=== PATIENT | female | born 1945 | race Caucasian/White ===

== ENCOUNTER 2016-11-12 10:18 | Emergency (ER) | payer OTHER ==
[~2016-11-12] VITALS: Ht 160 cm; Wt 70.0 kg
[~2016-11-12 10:18] MED LIST: ASPEC81 PO; ATOR-24 PO; CALCIUM + D600 M1 PO; CALCTAB91 PO; CLB/200 PO; DIPH1TAB98 PO; DOCU-94 PO; FERR325T51 PO; HYDR-4079 PO; LEVO88TA3 PO; LORA-741 PO; MULT-506 PO; NITR1CAP32 PO; PANT40TA PO; SENN-61 PO; SERT-234 PO; TRAM-10 PO
[2016-11-12 10:23] VITALS: TEMP 36.7; Ht 160 cm; Wt 70.0 kg
--- NOTE | 2016-11-12 11:15 | EMERGENCY ROOM VISIT NOTE ---
History Report prepared by Cris: Arleen Mckinnon Under the Supervision of: Dr. Anel Ferrera M.D. First contact with patient: 10:37 Chief Complaint: SWELLING TO EXTREMITY Stated Complaint: SWELLING IN R LEG History of Present Illness The patient is a 71 year old female who presents to the Emergency Room with complaints of persistent right leg swelling starting this morning. She noticed today that her right leg was larger than her left. She denies any hip pain or SOB. She has a history of right hip surgery after she fractured it. Source of History: patient Onset: this morning Position: leg (right) Quality: other (swelling) Timing: other (persistent) Associated Symptoms: No SOB Note: Pt denies hip pain. Review of Systems See HPI for pertinent positives & negatives. A total of 10 systems reviewed and were otherwise negative. Past Medical & Surgical Medical Problems: (1) Anxiety (2) Depression (3) DJD (degenerative joint disease) (4) Hyperlipidemia (5) Hypothyroidism (6) Venous (peripheral) insufficiency Surgical Problems: (1) History of dental surgery (2) Post-operative state (3) Post-operative state Family History Diabetes mellitus BROTHER Social History Smoking Status: Never Smoker Alcohol Use: none Drug Use: none Marital Status: Housing Status: lives alone Occupation Status: unemployed Current/Historical Medications Scheduled , 600 MG PO BID Aspirin (Aspirin EC Low Dose), 81 MG PO BID Atorvastatin (Lipitor), 40 MG PO HS Ferrous Sulfate (Ferrous Sulfate), 325 MG PO DAILY Levothyroxine Sodium (Synthroid), 75 MCG PO DAILY Multivitamin (Multivitamin), 1 TAB PO QAM Oxybutynin Chloride (Ditropan), 5 MG PO BID Sertraline (Zoloft), 100 MG PO QPM Allergies Coded Allergies: No Known Allergies (Unverified , 11/12/16) Physical Exam Vital Signs Date Time Temp Pulse Resp B/P (MAP) Pulse Ox O2 Delivery O2 Flow Rate FiO2 11/12/16 13:23 11/12/16 13:02 44 11/12/16 12:55 51 16 168/69 97 Room Air 11/12/16 11:28 67 18 152/84 95 Room Air 11/12/16 10:23 36.7 55 18 146/73 98 Room Air Physical Exam Vital signs reviewed. General: Well-appearing female, in no significant distress. HEENT: No scleral icterus, PERRLA, neck supple. Atraumatic. Cardiovascular: Regular rate and rhythm, no extra sounds. Pulmonary: Clear to auscultation bilaterally, normal work of breathing. Abdomen: Soft, nontender, nondistended, positive bowel sounds. Musculoskeletal: Atraumatic. Right thigh is questionably edematous, neurovascularly intact, no distal lower extremity edema. Neurologic: Patient awake alert and oriented x 3 Skin: Warm, dry, no rash Medical Decision & Procedures ER Provider Diagnostic Interpretation: Radiology results as stated below per my review and radiologist interpretation: RIGHT VENOUS DOPP LOWER EXT UNILAT CLINICAL HISTORY: RLE swelling Right pain. Edema. TECHNIQUE: Ultrasound COMPARISON STUDY: None FINDINGS: Normal venous Doppler right leg IMPRESSION: Normal venous Doppler right leg The above report was generated using voice recognition software. It may contain grammatical, syntax or spelling errors. Electronically signed by: Jerome Collazo M.D. 11/12/2016 12:19 PM Dictated Date/Time: 11/12/2016 12:19 PM Laboratory Results 11/12/16 11:01 Red Blood Count 3.83, Mean Corpuscular Volume 91.1, Mean Corpuscular Hemoglobin 29.5, Mean Corpuscular Hemoglobin Concent 32.4, Mean Platelet Volume 8.2, Neutrophils (%) (Auto) 64.7, Lymphocytes (%) (Auto) 24.4, Monocytes (%) (Auto) 9.5, Eosinophils (%) (Auto) 1.0, Basophils (%) (Auto) 0.2, Neutrophils # (Auto) 3.34, Lymphocytes # (Auto) 1.26, Monocytes # (Auto) 0.49, Eosinophils # (Auto) 0.05, Basophils # (Auto) 0.01 11/12/16 11:01 Test 11/12/16 11:01 White Blood Count 5.16 K/uL (4.8-10.8) Red Blood Count 3.83 M/uL (4.2-5.4) Hemoglobin 11.3 g/dL (12.0-16.0) Hematocrit 34.9 % (37-47) Mean Corpuscular Volume 91.1 fL (80-100) Mean Corpuscular Hemoglobin 29.5 pg (25-34) Mean Corpuscular Hemoglobin Concent 32.4 g/dl (32-36) Platelet Count 260 K/uL (130-400) Mean Platelet Volume 8.2 fL (7.4-10.4) Neutrophils (%) (Auto) 64.7 % Lymphocytes (%) (Auto) 24.4 % Monocytes (%) (Auto) 9.5 % Eosinophils (%) (Auto) 1.0 % Basophils (%) (Auto) 0.2 % Neutrophils # (Auto) 3.34 K/uL (1.4-6.5) Lymphocytes # (Auto) 1.26 K/uL (1.2-3.4) Monocytes # (Auto) 0.49 K/uL (0.11-0.59) Eosinophils # (Auto) 0.05 K/uL (0-0.5) Basophils # (Auto) 0.01 K/uL (0-0.2) RDW Standard Deviation 47.9 fL (36.4-46.3) RDW Coefficient of Variation 14.3 % (11.5-14.5) Immature Granulocyte % (Auto) 0.2 % Immature Granulocyte # (Auto) 0.01 K/uL (0.00-0.02) Prothrombin Time 10.3 SECONDS (9.0-12.0) Prothromb Time International Ratio 1.0 (0.9-1.1) Activated Partial Thromboplast Time 26.1 SECONDS (21.0-31.0) Partial Thromboplastin Ratio 1.0 Anion Gap 5.0 mmol/L (3-11) Est Creatinine Clear Calc Drug Dose 91.3 ml/min Estimated GFR () 110.7 Estimated GFR (Non- 95.5 BUN/Creatinine Ratio 17.9 (10-20) Calcium Level 8.5 mg/dl (8.5-10.1) Total Bilirubin 0.4 mg/dl (0.2-1) Direct Bilirubin 0.1 mg/dl (0-0.2) Aspartate Amino Transf (AST/SGOT) 24 U/L (15-37) Alanine Aminotransferase (ALT/SGPT) 34 U/L (12-78) Alkaline Phosphatase 83 U/L (45-117) Total Protein 6.6 gm/dl (6.4-8.2) Albumin 3.7 gm/dl (3.4-5.0) Laboratory results per my review. ED Course 1040: Past medical records reviewed. The patient was evaluated in room B3B. A complete history and physical examination was performed. 1136: I reevaluated the patient. She will get an ultrasound. 1323: Upon reevaluation, the patient was resting comfortably. I discussed findings with her. She verbalized agreement of the treatment plan. She was discharged home. Medical Decision Differential diagnosis: Etiologies such as DVT, musculoskeletal, infection, joint effusion, trauma, lymphedema, idiopathic, CHF, as well as others were entertained. This patient was evaluated and appeared to be in no significant distress. IV access was obtained and laboratory work was drawn. Ultrasound of right lower sternal he was performed and is negative for DVT. Patient was becoming somewhat agitated and wanted to leave. She states she is able to ambulate on the leg without difficulty. On further reflection, the patient feels as though her right leg is "always bigger than her left leg." This is chronic and likely secondary to her previous surgery. The x-ray was canceled and the patient was advised to follow-up with her primary care physician. She will return to the emergency department for worsening of symptoms or any medical concerns. Medication Reconcilliation Current Medication List: was personally reviewed by me Blood Pressure Screening Patient's blood pressure: Elevated blood pressure Blood pressure disposition: Referred to PCP Impression Primary Impression: Swelling of right lower extremity Scribe Attestation The scribe's documentation has been prepared under my direction and personally reviewed by me in its entirety. I confirm that the note above accurately reflects all work, treatment, procedures, and medical decision making performed by me. Departure Information Dispostion Home / Self-Care Referrals Geovanny Prieto D.O. (PCP) Forms HOME CARE DOCUMENTATION FORM, IMPORTANT VISIT INFORMATION, WORK / SCHOOL INSTRUCTIONS Patient Instructions My [facility] Additional Instructions Diagnosis: Right lower extremity swelling Elevate the right leg when possible. Follow-up with your physician this week for reevaluation. Return to the ER for worsening of symptoms or any medical concerns.
[2016-11-12 11:16] LABS: BASO % 0.2 %; BASO ABS # 0.01 K/uL (0-0.2); COMPLETE YES; HEMATOCRIT 34.9 % (37-47); IG% 0.2 %; LYMPH % 24.4 %; LYMPH ABS # 1.26 K/uL (1.2-3.4); MEAN CELL VOLUME 91.1 fL (80-100); MEAN CORPUSCULAR HEMOGLOBIN 29.5 pg (25-34); MEAN CORPUSCULAR HGB CONC 32.4 g/dl (32-36); MEAN PLATELET VOLUME 8.2 fL (7.4-10.4); MONO % 9.5 %; NEUT % 64.7 %; PLATELET COUNT 260 K/uL (130-400); RED BLOOD COUNT 3.83 M/uL (4.2-5.4); WHITE BLOOD COUNT 5.16 K/uL (4.8-10.8)
[2016-11-12 11:30] LABS: PROTHROMBIN TIME (PATIENT) 10.3 SECONDS (9.0-12.0)
[2016-11-12 11:34] LABS: BUN/CREATININE RATIO 17.9 (10-20); CALCIUM 8.5 mg/dl (8.5-10.1); CREATININE 0.53 mg/dl (0.60-1.20); POTASSIUM 3.9 mmol/L (3.5-5.1)
[2016-11-12] MEDS ORDERED: FERR325T5 PO (11:37)
[2016-11-12] MEDS ORDERED: OXYB5TAB74 PO (11:37)
[2016-11-12] MEDS ORDERED: LEVO75TA PO (11:37)
--- NOTE | 2016-11-12 12:20 | DIAGNOSTIC IMAGING REPORT ---
RIGHT VENOUS DOPP LOWER EXT UNILAT CLINICAL HISTORY: RLE swelling Right pain. Edema. TECHNIQUE: Ultrasound COMPARISON STUDY: None FINDINGS: Normal venous Doppler right leg IMPRESSION: Normal venous Doppler right leg The above report was generated using voice recognition software. It may contain grammatical, syntax or spelling errors. Electronically signed by: Jerome Collazo M.D. 11/12/2016 12:19 PM Dictated Date/Time: 11/12/2016 12:19 PM
[2016-11-12 12:55] VITALS: BP 168/69; O2SAT 97
[2016-11-12 13:02] VITALS: PULSE 44
== END 2016-11-12 13:23 | disposition home or self-care (01) ==
LOC: C.EDB 10:18
DX: M79.89 Other specified soft tissue disorders (principal); E78.5 Hyperlipidemia, unspecified; E03.9 Hypothyroidism, unspecified; M19.90 Unspecified osteoarthritis, unspecified site; I73.9 Peripheral vascular disease, unspecified; F32.9 Major depressive disorder, single episode, unspecified; F41.9 Anxiety disorder, unspecified; Z79.82 Long term (current) use of aspirin; Z79.899 Other long term (current) drug therapy; Z87.828 Personal history of other (healed) physical injury and trauma; Z83.3 Family history of diabetes mellitus

== ENCOUNTER 2017-05-12 06:23 | Emergency (ER) | payer OTHER ==
[~2017-05-12] VITALS: Ht 157.5 cm; Wt 70.5 kg
[~2017-05-12 06:23] MED LIST changes: -CALCTAB91 PO; -CLB/200 PO; -DIPH1TAB98 PO; -DOCU-94 PO; +DTR/5 PO; +FERR325T5 PO; -FERR325T51 PO; -HYDR-4079 PO; +LEVO75TA PO; -LEVO88TA3 PO; -LORA-741 PO; -NITR1CAP32 PO; -PANT40TA PO; -SENN-61 PO; -TRAM-10 PO
[2017-05-12 06:26] VITALS: TEMP 36.7; Ht 157.5 cm; Wt 70.5 kg
[2017-05-12] MEDS ORDERED: MAGNESIUM CITRATE 296 ML/BTL PO STA (06:45)
[2017-05-12 06:57] VITALS: BP 117/68; PULSE 62; O2SAT 98
--- NOTE | 2017-05-12 07:04 | EMERGENCY ROOM VISIT NOTE ---
History Report prepared by Cris: Roberth Mendez Under the Supervision of: Dr. Deangelo Seals M.D. First contact with patient: 06:30 Chief Complaint: CONSTIPATION Stated Complaint: CONSTIPATED Nursing Triage Summary: Patient reports constipation for one week. Patient believes it is related to one of her medications, but is unsure which. History of Present Illness The patient is a 72 year old female who presents to the Emergency Room with complaints of constant constipation that began a week ago. Patient denies any associated symptoms of pain. Patient states that she has a history of constipation. Patient states that she has not moved her bowels for "almost 2 weeks". Patient states that she tried taking Laxatives to relieve the symptoms. She adds that she is currently taking Docusate and Oxybutynin. Source of History: patient Onset: 1 week ago Position: abdomen Timing: constant Modifying Factors (Relieving): other (None) Associated Symptoms: No abdominal pain Note: Patient denies any pain. Review of Systems See HPI for pertinent positives & negatives. A total of 10 systems reviewed and were otherwise negative. Past Medical & Surgical Medical Problems: (1) Anxiety (2) Depression (3) DJD (degenerative joint disease) (4) Hyperlipidemia (5) Hypothyroidism (6) Venous (peripheral) insufficiency Surgical Problems: (1) History of dental surgery (2) Post-operative state (3) Post-operative state Family History Diabetes mellitus BROTHER Social History Smoking Status: Never Smoker Alcohol Use: none Drug Use: none Marital Status: Housing Status: lives alone Occupation Status: unemployed Current/Historical Medications Scheduled , 600 MG PO BID Aspirin (Aspirin EC Low Dose), 81 MG PO BID Atorvastatin (Lipitor), 40 MG PO HS Ferrous Sulfate (Ferrous Sulfate), 325 MG PO DAILY Levothyroxine Sodium (Synthroid), 75 MCG PO DAILY Multivitamin (Multivitamin), 1 TAB PO QAM Oxybutynin Chloride (Ditropan), 5 MG PO BID Sertraline (Zoloft), 100 MG PO QPM Allergies Coded Allergies: No Known Allergies (Unverified , 11/12/16) Physical Exam Vital Signs Date Time Temp Pulse Resp B/P (MAP) Pulse Ox O2 Delivery O2 Flow Rate FiO2 05/12/17 06:57 62 16 117/68 98 05/12/17 06:26 36.7 61 18 173/84 94 Room Air Physical Exam GENERAL: Awake, alert, well-appearing, in no acute distress HENT: Normocephalic, atraumatic. Oropharynx unremarkable. EYES: Normal conjunctiva. Sclera non-icteric. NECK: Supple. No nuchal rigidity. FROM. No JVD. RESPIRATORY: Clear to auscultation. CARDIAC: Regular rate, normal rhythm. Extremities warm and well perfused. Pulses equal. ABDOMEN: Soft, non-distended. No tenderness to palpation. No rebound or guarding. No masses. RECTAL: Deferred. MUSCULOSKELETAL: Chest examination reveals no tenderness. The back is symmetrical on inspection without obvious abnormality. There is no CVA tenderness to palpation. No joint edema. LOWER EXTREMITIES: Calves are equal size bilaterally and non-tender. No edema. No discoloration. NEURO: Normal sensorium. No sensory or motor deficits noted. SKIN: No rash or jaundice noted. Medical Decision & Procedures ED Course 0640: Past medical records reviewed. The patient was evaluated in room B3B. A complete history and physical examination was performed. 0645: Magnesium Citrate 296ml PO 0650: Upon reexamination the patient is resting comfortably. I offered to perform lab work and imaging on the patient but she declined. I discussed treatment plan with the patient. She verbalizes agreement and understanding. The patient is ready for discharge. Medical Decision Differential diagnosis: Etiologies such as appendicitis, diverticulitis, PUD, biliary pathology, UTI, pancreatitis, obstruction, mesenteric ischemia, aortic pathology, infections, inflammatory bowel disease, renal colic, as well as others were entertained. This is a 72-year-old female who presents emergency department complaining of constipation. I offered to do laboratory work and recommended a CAT scan of the abdomen and pelvis however the patient does not wish to do this. Serial abdominal examinations were performed and the patient in the emergency department and at no time to the patient exhibited abdominal tenderness. The patient is just requesting a bottle of magnesium Citrate and wishes to go home and use it. I stressed the need to return to the emergency department if she is unable to move her bowels or she develops severe abdominal pain or fevers. Patient was in agreement with the treatment plan. Medication Reconcilliation Current Medication List: was personally reviewed by me Blood Pressure Screening Patient's blood pressure: Elevated blood pressure Blood pressure disposition: Referred to PCP Impression Primary Impression: Constipation Scribe Attestation The scribe's documentation has been prepared under my direction and personally reviewed by me in its entirety. I confirm that the note above accurately reflects all work, treatment, procedures, and medical decision making performed by me. Departure Information Dispostion Home / Self-Care Referrals No Doctor, Assigned (PCP) Forms HOME CARE DOCUMENTATION FORM, IMPORTANT VISIT INFORMATION Patient Instructions ED Constipation, My [facility] Additional Instructions Take 1/2 bottle of Mag Citrate Repeat second half in six hours Add Miralax to diet Clear liquid diet next 48 hours You were found to have an elevated blood pressure today (>120 sytolic or >90 diastolic). Per medicare guidelines, you need to follow up with this blood pressure screening with your Primary Care Physician (PCP). For a new PCP call [phone]. You have been examined and treated today on an emergency basis only. This is not a substitute for, or an effort to provide, complete comprehensive medical care. It is impossible to recognize and treat all injuries or illnesses in a single emergency department visit. It is therefore important that you follow up closely with your PCP. Call as soon as possible for an appointment. Thank you for your time and consideration. I look forward to speaking with you again soon. Please don't hesitate to call us if you have any questions. Problem Qualifiers Primary Impression: Constipation Constipation type: unspecified constipation type Qualified Codes: K59.00 - Constipation, unspecified
== END 2017-05-12 06:58 | disposition home or self-care (01) ==
LOC: C.EDB 06:25
DX: K59.00 Constipation, unspecified (principal); E78.5 Hyperlipidemia, unspecified; E03.9 Hypothyroidism, unspecified; F32.9 Major depressive disorder, single episode, unspecified; M19.90 Unspecified osteoarthritis, unspecified site; Z98.818 Other dental procedure status; Z98.890 Other specified postprocedural states; Z83.3 Family history of diabetes mellitus; Z79.82 Long term (current) use of aspirin; Z79.899 Other long term (current) drug therapy

== ENCOUNTER 2022-01-16 12:46 | Inpatient (IN) ==
[2022-01-16] MEDS ORDERED: LORazepam 1 MG/1 ML SYR IM STA (14:04)
[2022-01-16] MEDS ORDERED: HALOPERIDOL LACTATE 5 MG/ML 1 ML VIAL IM STA (14:04)
--- NOTE | 2022-01-16 14:21 | Emergency Department Note ---
Impression & Plan Altered mental status, Dementia ED Provider Note NAME: DESIREE SHORE AGE: 76 SEX: F : 1945 ARRIVES VIA: Walk-In INFORMANT: Patient, ED PROVIDER(S): Poli Shelley DO CHIEF COMPLAINT: Encounter for behavioral health evaluation HPI: The patient is a 76-year-old female who was dropped off by family for an evaluation and possible placement. The patient self offers no complaints. She denies having any chest pain. She denies having any nausea or vomiting. She denies having any recent trauma or headache. She is very agitated and complaining that she does not want to be in the emergency department. She states that she is not here as a patient but instead is here because she is visiting her friend. The patient denies having any recent fevers. She denies having a headache. Apparently the patient was dropped off by family at the front as they cannot take care of her anymore. She was admitted to our facility recently for similar complaints. ROS: See above HPI for pertinent positives & negatives. A total of 10 systems reviewed and were otherwise negative. PAST MEDICAL HISTORY: See Below PAST SURGICAL HISTORY: See Below FAMILY HISTORY: See Below SOCIAL HISTORY: See Below HOME MEDICATIONS: See Below ALLERGIES: See Below VITALS: See Below PHYSICAL EXAMINATION: GENERAL: The patient is awake and alert. The patient is somewhat anxious appearing. EYES: The conjunctivae are clear. The pupils are round and reactive. EARS, NOSE, MOUTH AND THROAT: The nose is without any evidence of any deformity. NECK: The neck is nontender and supple. RESPIRATORY: Normal respiratory effort is noted there is no evidence of wheezing rhonchi or rales CARDIOVASCULAR: Regular rate and rhythm noted there no murmurs rubs or gallops normal S1 normal S2. GASTROINTESTINAL: The abdomen is soft. Abdomen is nontender. MUSCULOSKELETAL/EXTREMITIES: There is no evidence of gross deformity full range of motion is noted in the hips and shoulders. SKIN: Skin is warm and dry. There is no significant pedal edema. NEUROLOGIC: Patient is awake alert and oriented to person place but not time. Patient is walking around the room using her cane. MEDICAL DECISION MAKING: The patient is a 76-year-old female who presented to the emergency department for an evaluation. The patient was recently admitted to our facility and has some degree of dementia diagnosed at that time. The family felt that they would like to try to manage her condition at home. She was discharged in their care. The family brought her back to the emergency department today because they do not feel that they can properly manage her. I discussed the patient's laboratory and radiographic studies with her. I discussed her condition with the on-call [facility]ist group. They have agreed to evaluate the patient in the emergency department for further management and disposition. The patient was treated with medication to help her calm down she was very agitated in the emergency department. Triage Nursing notes reviewed. Prior medical records reviewed Vital Signs: reviewed and remarkable for elevated blood pressure. Differential diagnosis: Infection, hypoglycemia, electrolyte abnormalities, overdose, toxicologic, cardiac sources, intracerebral event, neurologic, trauma, as well as other pathologies. ER treatment provided: See below Diagnostics interpreted by me: ECG: EKG was obtained in the emergency department. My interpretation is normal sinus rhythm at 69 bpm. There is no ectopy. There is no acute ST segment abnormalities noted. LVH was noted by voltage criteria. This was compared to a tracing from December 29, 2021. No changes were noted. Cardiac Monitoring: An order was placed for continuous cardiac monitoring. The monitor shows a rate of 98 bpm with sinus rhythm. Laboratory studies: As stated above and show below. Imaging studies: See below Consultation(s): I discussed this case with Mallory who is on-call for the [facility] hospitalist group. Past Med/Surg History Medical History Acid reflux Anterior dislocation of right hip Anxiety Chronic confusion Constipation Dementia Dementia with behavioral disturbance Depression Depression with anxiety History of skin cancer removed Hyperlipemia Hypothyroidism Iron deficiency anemia Osteoarthritis Overactive bladder Poor historian Poor short term memory Scoliosis Vitamin D deficiency Surgical History History of dilation and curettage History of open reduction and internal fixation (ORIF) procedure Left hip History of tooth extraction Family History Brother Diabetes Father Hypertension Other No family history of adverse response to anesthesia Social History Smoking Status: Never smoker Second Hand Exposure: No; Hx Alcohol Use: No Hx Substance Use: No Preferred Language: New Zealander 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 Ability: 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 Beliefs That Will Affect Care: None marital status: / Current Living Situation: Other Current Living Situation Comment: Home with son in mobile home How many Children do You have: 2 Feels Safe at Home: Yes Assistive Devices: Cane Allergies Allergies Allergy/AdvReac Type Severity Reaction Status Date / Time No Known Allergies Allergy Verified 12/07/21 19:54 Home Meds Home Medications Medication Instructions Recorded Confirmed aspirin 81 mg tablet,delayed 81 mg PO QAM 07/23/18 01/16/22 release levothyroxine 88 mcg tablet 88 mcg PO DAILY 12/20/21 01/16/22 donepezil 5 mg tablet 5 mg PO DAILY 01/16/22 01/16/22 Previous Rx's Medication Instructions Recorded olanzapine 2.5 mg tablet 2.5 mg PO DAILY PRN agitation #20 01/03/22 tabs quetiapine 25 mg tablet (Seroquel) See Rx Instructions .Route 01/03/22 .COMPLEX #90 tabs Results & Data (ED) Vital Signs Vital Signs - 24 hr 01/16/22 13:04 01/16/22 14:41 Temperature 36.8 C Temperature Source Oral Pulse Rate 86 Pulse Rate [Right Finger] 98 H Respiratory Rate 20 20 Respiratory Effort / Characteristics Non-Labored Non-Labored Spontaneous Respiratory Depth Normal Normal Respiratory Pattern Regular Blood Pressure 121/87 Blood Pressure [Right Arm] 172/140 H Blood Pressure Mean 98 Blood Pressure Mean [Right Arm] 150 Blood Pressure Position [Right Arm] Lying Pulse Oximetry 98 94 Oxygen Delivery Method Room Air Room Air Sepsis Recent Fever Within 48 Hours No Sepsis New/Unexplained Change in Mental Status N/A Sepsis Action Taken by Nursing No Action Required Home Medications Current Medication List: was personally reviewed by me Laboratory Data Attestation: I reviewed the patient's lab results. Result diagrams: 01/16/22 17:45 01/16/22 17:45 Lab Results 01/16/22 01/16/22 01/16/22 Range/Units 17:45 17:45 17:45 WBC 7.38 (4.8-10.8) K/ul RBC 3.72 L (3.93-5.22) M/uL Hgb 10.9 L (12.0-16.0) g/dl Hct 33.6 L (34.1-44.9) % MCV 90.3 (80.0-100.0) fL MCH 29.3 (25.0-34.0) pg MCHC 32.4 (32.0-36.0) g/dL RDW Std Deviation 50.3 H (36.4-46.3) fL RDW Coeff of Deidre 14.9 H (11.5-14.5) % Plt Count 400 (130-400) K/uL MPV 9.0 L (9.4-12.3) fL Immature Gran % (Auto) 0.3 % Neut % (Auto) 63.4 % Lymph % (Auto) 25.6 % Trego % (Auto) 8.7 % Eos % (Auto) 1.5 % Baso % (Auto) 0.5 % Neut # (Auto) 4.68 (1.4-6.5) K/uL Lymph # (Auto) 1.89 (1.2-3.4) K/uL Trego # (Auto) 0.64 (0.24-0.82) K/uL Eos # (Auto) 0.11 (0-0.50) K/uL Baso # (Auto) 0.04 (0-0.2) K/uL Immature Gran # (Auto) 0.02 (0.00-0.02) K/uL PT 10.5 (9.0-12.0) Seconds INR 1.0 (0.9-1.1) APTT 25.7 (21.0-31.0) Seconds PTT Ratio 0.9 Sodium 142 (136-145) mmol/L Potassium 3.4 L (3.5-5.1) mmol/L Chloride 110 H (98-107) mmol/L Carbon Dioxide 26 (21-32) mmol/L Anion Gap 6 (3-11) BUN 14 (6-23) mg/dl Creatinine 0.66 (0.6-1.2) mg/dl Est Cr Clr Drug Dosing Not Reportable Est GFR ( Amer) 99.5 ml/min Est GFR (Non-Af Amer) 85.8 ml/min BUN/Creatinine Ratio 21.2 H (10-20) Glucose 98 (70-99(Fasting)) mg/dl Calcium 8.1 L (8.5-10.1) mg/dl Magnesium 2.4 (1.7-2.4) mg/dl Total Bilirubin 0.4 (0.2-1.0) mg/dl AST 20 (13-39) U/L ALT 18 (7-52) U/L Alkaline Phosphatase 100 (34-104) U/L Total Creatine Kinase 61 (26-192) U/L Troponin I High Sens 7.2 (0-14) pg/ml Total Protein 6.5 (6.0-8.3) gm/dl Albumin 3.7 (3.4-5.0) gm/dl Globulin 2.8 (2.5-4.0) gm/dl Albumin/Globulin Ratio 1.3 (0.9-2) TSH (0.300-4.500) uIu/ml SARS-CoV-2, RNA, NAAT (NEGATIVE) 01/16/22 01/16/22 Range/Units 17:45 Unknown WBC (4.8-10.8) K/ul RBC (3.93-5.22) M/uL Hgb (12.0-16.0) g/dl Hct (34.1-44.9) % MCV (80.0-100.0) fL MCH (25.0-34.0) pg MCHC (32.0-36.0) g/dL RDW Std Deviation (36.4-46.3) fL RDW Coeff of Deidre (11.5-14.5) % Plt Count (130-400) K/uL MPV (9.4-12.3) fL Immature Gran % (Auto) % Neut % (Auto) % Lymph % (Auto) % Trego % (Auto) % Eos % (Auto) % Baso % (Auto) % Neut # (Auto) (1.4-6.5) K/uL Lymph # (Auto) (1.2-3.4) K/uL Trego # (Auto) (0.24-0.82) K/uL Eos # (Auto) (0-0.50) K/uL Baso # (Auto) (0-0.2) K/uL Immature Gran # (Auto) (0.00-0.02) K/uL PT (9.0-12.0) Seconds INR (0.9-1.1) APTT (21.0-31.0) Seconds PTT Ratio Sodium (136-145) mmol/L Potassium (3.5-5.1) mmol/L Chloride (98-107) mmol/L Carbon Dioxide (21-32) mmol/L Anion Gap (3-11) BUN (6-23) mg/dl Creatinine (0.6-1.2) mg/dl Est Cr Clr Drug Dosing Est GFR ( Amer) ml/min Est GFR (Non-Af Amer) ml/min BUN/Creatinine Ratio (10-20) Glucose (70-99(Fasting)) mg/dl Calcium (8.5-10.1) mg/dl Magnesium (1.7-2.4) mg/dl Total Bilirubin (0.2-1.0) mg/dl AST (13-39) U/L ALT (7-52) U/L Alkaline Phosphatase (34-104) U/L Total Creatine Kinase (26-192) U/L Troponin I High Sens (0-14) pg/ml Total Protein (6.0-8.3) gm/dl Albumin (3.4-5.0) gm/dl Globulin (2.5-4.0) gm/dl Albumin/Globulin Ratio (0.9-2) TSH 1.652 (0.300-4.500) uIu/ml SARS-CoV-2, RNA, NAAT NEGATIVE (NEGATIVE) Administered Medications Discontinued Medications Haloperidol Lactate (Haloperidol Lactate 5 Mg/Ml 1 Ml Vial) 5 mg IM NOW STA Stop: 01/16/22 14:05 Last Admin: 01/16/22 14:23 Dose: 5 mg Documented By: TONY Lorazepam (Lorazepam 1 Mg/1 Ml Syr) 1 mg IM NOW STA; Protocol Stop: 01/16/22 14:05 Last Admin: 01/16/22 14:23 Dose: 1 mg Documented By: TONY Imaging Data Radiologist's Impression: Chest X-Ray 01/16/22 14:04 XR chest 1V portable CLINICAL HISTORY: weakness TECHNIQUE: Single frontal radiograph of the chest was obtained. Comparison: Comparison is made to chest radiograph 12/25/2021 FINDINGS: No lines and tubes are seen. Calcified aortic knob is seen. The lungs are clear. No evidence of pleural effusion or pneumothorax. IMPRESSION: No acute chest disease. ACT 112: Negative or not required by law. Electronically signed by: Enrique Herrera M.D. 01/16/2022 3:51 PM Discharge Plan Visit Data Chief Complaint: Altered Mental Status Stated Complaint: ALTERED MENTAL STATUS, PLACEMENT FOR [facility] ED Provider: Poli Shelley Discharge Problem: Altered mental status, Dementia Patient Disposition: Being Evaluated by Hospitalist Forms Stand Alone Forms: My [facility] Prescriptions Prescriptions: No Action aspirin 81 mg tablet,delayed release (DR/EC) 81 mg PO QAM levothyroxine 88 mcg tablet 88 mcg PO DAILY quetiapine [Seroquel] 25 mg tablet See Rx Instructions .ROUTE .COMPLEX Qty: 90 0RF Rx Instructions: 25 mg orally in morning 50mg orally at night olanzapine 2.5 mg tablet 2.5 mg PO DAILY PRN (Reason: agitation) Qty: 20 0RF donepezil 5 mg Tablet 5 mg PO DAILY Referrals Referrals: Gaurav Savage MD [Primary Care Provider] -
--- NOTE | 2022-01-16 15:52 | XRay Report ---
XR chest 1V portable CLINICAL HISTORY: weakness TECHNIQUE: Single frontal radiograph of the chest was obtained. Comparison: Comparison is made to chest radiograph 12/25/2021 FINDINGS: No lines and tubes are seen. Calcified aortic knob is seen. The lungs are clear. No evidence of pleur al effusion or pneumothorax. IMPRESSION: No acute chest disease. ACT 112: Negative or not required by law. Electronically signed by: Enrique Herrera M.D. 01/16/2022 3:51 PM
--- NOTE | 2022-01-16 15:53 | History & Physical Report ---
Date of Service January 16, 2022 Assessment & Plan (1) Dementia with behavioral disturbance: Plan: Admit to [facility] [place] [place] Patient presenting with increased agitation. Recently admitted to [facility] 12/20 through 01/03 for similar. Patient discharged on Seroquel and as needed olanzapine. Patient was excepted to [facility] during previous admission however son elected to take the patient home to be her primary caregiver. Son dropped the patient off at the ED today and did not come in to the hospital. Continue previously prescribed dose of Seroquel. PRN IM olanzapine for severe agitation. Psych consult. Obtain labs and EKG once patient is less agitated. Patient will need manager intermediate placement, discussed with ED case management -- Office of Aging and Adult Protective Services have been notified of the situation. (2) Hypothyroidism: Plan: According to patient's pharmacy, she is prescribed levothyroxine 88 mcg daily however this has not been picked up since November for a 30-day supply Check TSH, order levothyroxine accordingly (3) DVT prophylaxis: Plan: SCDs for now due to increased fall risk and agitation History of Present Illness Chief Complaint: Agitation Primary Care Provider: Gaurav Savage MD 76-year-old female with PMH dementia, hypothyroidism, hyperlipidemia, and other problems to below who presents to the ED for agitation. Patient's son dropped her off at the ED and did not stay with her. History is very limited from the patient currently due to severe agitation. Patient recently admitted to [facility] 12/20 through 01/03 for agitation due to dementia. Patient was discharged on Seroquel and as needed olanzapine. I did confirm with patient's pharmacy that these 2 prescriptions were picked up however cannot confirm with patient has been taking medications as prescribed. I also attempted to call patient's son however there was a busy signal. Due to patient's agitation, labs and imaging have not been completed. During exam, patient is ambulating in the room independently however severely agitated and yelling. Patient received IM Haldol and IM lorazepam in the ED. Allergies Allergy/AdvReac Type Severity Reaction Status Date / Time No Known Allergies Allergy Verified 12/07/21 19:54 Home Medications Medication Instructions Recorded Confirmed Type aspirin 81 mg tablet,delayed 81 mg PO QAM 07/23/18 01/16/22 History release levothyroxine 88 mcg tablet 88 mcg PO DAILY 12/20/21 01/16/22 History olanzapine 2.5 mg tablet 2.5 mg PO DAILY PRN agitation #20 01/03/22 01/16/22 Rx tabs quetiapine 25 mg tablet (Seroquel) See Rx Instructions .Route 01/03/22 01/16/22 Rx .COMPLEX #90 tabs donepezil 5 mg tablet 5 mg PO DAILY 01/16/22 01/16/22 History Past Med/Surg History Medical History Acid reflux Anterior dislocation of right hip Anxiety Chronic confusion Constipation Dementia Dementia with behavioral disturbance Depression Depression with anxiety History of skin cancer removed Hyperlipemia Hypothyroidism Iron deficiency anemia Osteoarthritis Overactive bladder Poor historian Poor short term memory Scoliosis Vitamin D deficiency Surgical History History of dilation and curettage History of open reduction and internal fixation (ORIF) procedure Left hip History of tooth extraction Family History Brother Diabetes Father Hypertension Other No family history of adverse response to anesthesia Social History Smoking Status: Never smoker Second Hand Exposure: No; Hx Alcohol Use: No Hx Substance Use: No Preferred Language: Armenian 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 Ability: 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 Patient is severely agitated and consistently attempting to hit staff. She is ambulating in the room independently. Results & Data Results & Data ([facility]) Vital Signs (Past 12 Hours) Vital Signs Temp Pulse Pulse Resp BP BP Pulse Ox 01/16/22 14:41 98 H 20 172/140 H 94 01/16/22 13:04 36.8 C 86 20 121/87 98 O2 Del Method 01/16/22 14:41 Room Air 01/16/22 13:04 Room Air Code Status & VTE Plan VTE Prophylaxis Plan VTE Prophylaxis will be ordered: Yes Supervising Physician Co-Signing Physician Notes I have seen and examined the patient and have discussed the case with the provider above. I agree with the assessment and plan as stated. 76 yo F with dementia with behavioral disturbance who was set to go to a facility during last admission however, family opted to take her home instead. Today, she was dropped off by her son in a state of agitation and despite attempts from multiple providers, her son cannot be reached for comment other than to say he was too busy to come back in and be with her. Provider above was also unsuccessful in reaching him today. The patient is now sitting up in bed which is in a revers Tberg incline, and she is combative with staff. She is cursing at people and exhibiting anger and threats. At times she will pretend to cry and report she is suffering and then jump into a mocking, taunting voice and again become angry and threatening. She states "I want to go home for supper. Go call my son!" She states she doesn't want to stay here, but is unable to have a calm conversation with any staff. It is unclear if she is delirious as she declines to answer any questions. When I asked where she lived, she states "It's none of your business." When I asked why she came into the hospital today she replied,"to see what was going on." She denies any remembrance that she was in the hospital recently. Haldol and Ativan given in the ER with all testing including phlebotomy and urine studies placed on hold until she is ore calm. Agree with plan above. Office of Aging and case management aree already involved. Records were reviewed--no other history can be obtained at this time 2/2 combativeness and unwillingness to participate in the evaluation. No physical exam was performed 2/2 above. DO Florentino
[2022-01-16 18:28] LABS: Basophils # (auto) 0.04 K/uL (0-0.2); Basophils % (auto) 0.5 %; Eosinophils # (auto) 0.11 K/uL (0-0.50); Eosinophils % (auto) 1.5 %; Hematocrit (blood only) 33.6 % (34.1-44.9); Hemoglobin 10.9 g/dl (12.0-16.0); Immature Granulocytes # (auto) 0.02 K/uL (0.00-0.02); Immature Granulocytes % (auto) 0.3 %; Lymphocytes # (auto) 1.89 K/uL (1.2-3.4); Lymphocytes % (auto) 25.6 %; Mean Corpuscular Hemoglobin 29.3 pg (25.0-34.0); Mean Corpuscular Hgb Conc 32.4 g/dL (32.0-36.0); Mean Corpuscular Volume 90.3 fL (80.0-100.0); Monocytes # (auto) 0.64 K/uL (0.24-0.82); Monocytes % (auto) 8.7 %; Neutrophils # (auto) 4.68 K/uL (1.4-6.5); Neutrophils % (auto) 63.4 %; Platelet Count 400 K/uL (130-400); RDW Coefficient of Variation 14.9 % (11.5-14.5); RDW Standard Deviation 50.3 fL (36.4-46.3); Red Blood Count 3.72 M/uL (3.93-5.22); White Blood Count 7.38 K/ul (4.8-10.8)
[2022-01-16 18:44] LABS: Partial Thromboplastin Ratio 0.9; Partial Thromboplastin Time 25.7 Seconds (21.0-31.0); Prothrombin Time 10.5 Seconds (9.0-12.0)
[2022-01-16 19:04] LABS: Troponin I High Sensitivity 7.2 pg/ml (0-14)
[2022-01-16 19:05] LABS: Alanine Aminotransferase 18 U/L (7-52); Albumin Globulin Ratio 1.3 (0.9-2); Albumin Level 3.7 gm/dl (3.4-5.0); Alkaline Phosphatase 100 U/L (34-104); Anion Gap 6 (3-11); Aspartate Aminotransferase 20 U/L (13-39); BUN Creatinine Ratio 21.2 (10-20); Bilirubin,Total 0.4 mg/dl (0.2-1.0); Blood Urea Nitrogen 14 mg/dl (6-23); Calcium 8.1 mg/dl (8.5-10.1); Carbon Dioxide 26 mmol/L (21-32); Chloride 110 mmol/L (98-107); Creatine Kinase 61 U/L (26-192); Est GFR (African American) 99.5 ml/min; Est GFR (Non-African American) 85.8 ml/min; Globulin 2.8 gm/dl (2.5-4.0); Glucose 98 mg/dl (70-99(Fasting)); Magnesium 2.4 mg/dl (1.7-2.4); Potassium 3.4 mmol/L (3.5-5.1); Sodium 142 mmol/L (136-145); Total Protein 6.5 gm/dl (6.0-8.3)
[2022-01-16] MEDS: QUEtiapine FUMARATE 25 MG TABLET PO SCH (21:06)
[2022-01-17] MEDS: DONEPEZIL HCL 5 MG TAB PO SCH (08:33)
[2022-01-17] MEDS: QUEtiapine FUMARATE 25 MG TABLET PO SCH ×2 (08:33→20:02)
[2022-01-17] MEDS: ASPIRIN 81 MG ECTAB PO SCH (08:33)
--- NOTE | 2022-01-17 08:41 | Electrocardiogram Report ---
Test Reason : Blood Pressure : / mmHG Vent. Rate : 069 BPM Atrial Rate : 069 BPM P-R Int : 206 ms QRS Dur : 078 ms QT Int : 398 ms P-R-T Axes : 019 010 033 degrees QTc Int : 426 ms Poor data quality, interpretation may be adversely affected Sinus rhythm with Premature atrial complexes Abnormal ECG When compared with ECG of 29-DEC-2021 06:26, Premature atrial complexes are now Present NC interval has decreased Confirmed by Abimael Boston ([id number]) on 01/17/2022 8:41:08 AM Referred By: REFERRED SELF Confirmed By:Abimael Boston
[2022-01-17] MEDS ORDERED: POTASSIUM CHLORIDE CRTAB 20 MEQ TABCR PO STA (09:13)
[2022-01-17 09:16] LABS: Hematocrit (blood only) 35.6 % (34.1-44.9); Hemoglobin 11.5 g/dl (12.0-16.0); Mean Corpuscular Hemoglobin 28.7 pg (25.0-34.0); Mean Corpuscular Hgb Conc 32.3 g/dL (32.0-36.0); Mean Corpuscular Volume 88.8 fL (80.0-100.0); Mean Platelet Volume 8.5 fL (9.4-12.3); Platelet Count 399 K/uL (130-400); RDW Coefficient of Variation 14.8 % (11.5-14.5); RDW Standard Deviation 48.5 fL (36.4-46.3); Red Blood Count 4.01 M/uL (3.93-5.22); White Blood Count 5.65 K/ul (4.8-10.8)
[2022-01-17 09:43] LABS: BUN Creatinine Ratio 19.4 (10-20); Calcium 8.4 mg/dl (8.5-10.1); Est GFR (African American) 101.5 ml/min; Est GFR (Non-African American) 87.6 ml/min; Potassium 3.9 mmol/L (3.5-5.1)
--- NOTE | 2022-01-17 13:50 | Psychiatric Consultation ---
Date of Consultation January 17, 2022 Impression / Recommendations Impression 76 yo old admitted for dementia with worsening behavioral disturbance. Office of Aging involved as family dropped her off at ED and have not been involved since. Goal in dementia is to avoid medication management of behaviors if possible by maximizing non-pharmacologic strategies for behavioral management. However, given persistent agitation/aggression resulting in need for higher level of care agree with continuing seroquel and using olanzapine as needed as risk/benefit profile continues to favor treatment. Note all antipsychotic medications carry black box warning for increased risk of all-cause mortality in setting of dementia. (1) Dementia with behavioral disturbance: Plan -Continue seroquel 25mg qAM and 50mg qhs -For behavioral emergency: olanzapine 2.5 mg IM x 1(DO NOT exceed 10mg per 24 hours, check EKG if IM dose required,NEVER co-administer with IM or IV benzodiazepines). -Agree with plan for memory care placement and Office of Aging involvement Psych History Identifying Data 76 yo woman with history of dementia admited medically for worsening agitation at home. Psychiatry consulted for medication recommendations for agitation. Chief Complaint "Who sent you here?". History of Present Illness Antoinette is known to me from previous psychiatry consult on 12/21/2021 under similar circumstances. She was stabilized during prior hospitalization on seroquel 25mg qAM and 50mg qhs with good effect and discharged home with family with additional zyprexa 2.5mg po daily prn for breakthrough agitation. During previous stay most often had agitation in the morning. Yesterday was dropped off by family at the ED stating they could no longer care for her at home. She denied any concerns with the ED and hospitalist providers. When I see her she is sitting in bed watching TV. Communicates but confused. Suspicious of why I am meeting with her so interaction was brief. She denied any concerns. Allergies Allergy/AdvReac Type Severity Reaction Status Date / Time No Known Allergies Allergy Verified 12/07/21 19:54 Home Medications Medication Instructions Recorded Confirmed Type aspirin 81 mg tablet,delayed 81 mg PO QAM 07/23/18 01/16/22 History release levothyroxine 88 mcg tablet 88 mcg PO DAILY 12/20/21 01/16/22 History olanzapine 2.5 mg tablet 2.5 mg PO DAILY PRN agitation #20 01/03/22 01/16/22 Rx tabs quetiapine 25 mg tablet (Seroquel) See Rx Instructions .Route 01/03/22 01/16/22 Rx .COMPLEX #90 tabs donepezil 5 mg tablet 5 mg PO DAILY 01/16/22 01/16/22 History Personal History Beliefs That Will Affect Care: None Patient History Medical History Acid reflux Anterior dislocation of right hip Anxiety Chronic confusion Constipation Dementia Dementia with behavioral disturbance Depression Depression with anxiety History of skin cancer removed Hyperlipemia Hypothyroidism Iron deficiency anemia Osteoarthritis Overactive bladder Poor historian Poor short term memory Scoliosis Vitamin D deficiency Surgical History History of dilation and curettage History of open reduction and internal fixation (ORIF) procedure Left hip History of tooth extraction Family History Brother Diabetes Father Hypertension Other No family history of adverse response to anesthesia Social History Smoking Status: Never smoker Second Hand Exposure: No; Do You Dip or Chew Tobacco: No; Hx Alcohol Use: No Hx Substance Use: No Preferred Language: Swedish 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 Ability: Effective 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 Ability Comment: due to dementia, pt is inconsistent with being able to follow commands Pepper Cutter Required: Yes and No Beliefs That Will Affect Care: None marital status: / Current Living Situation: Family Current Living Situation Comment: was home w/ son in mobile home- How many Children do You have: 2 Other Information That Helps Us Care for You: No Feels Safe at Home: Yes Assistive Devices: None Physical Exam Psychiatric: Orientation: alert and oriented to person; + not oriented to place and + not oriented to time Apperance: + disheveled Eye Contact: + fair eye contact Motor Behavior: no abnormal motor movements Speech: + abnormal rate/rhythm/volume of speech (brief ) Affect: + irritable affect Mood: + irritable mood Thought Process: + looseness of associations Thought Content: + paranoid Suicidal Thoughts: denies suicidal thoughts Homicidal Thoughts: denies homicidal thoughts Hallucinations: no auditory hallucinations and no visual hallucinations Cognition: language grossly intact; + recent memory not intact and + attention not intact Insight: + severely impaired insight Judgement: + severely impaired judgement Vital Signs (Past 24 Hours): Last Vital Signs Temp 37.2 C 01/17/22 07:15 Pulse 59 L 01/17/22 07:15 Resp 16 01/17/22 07:15 BP 133/72 01/17/22 07:15 Pulse Ox 99 01/17/22 07:15 O2 Del Method 01/17/22 07:15 Review of Systems Unobtainable due to cognitive status Results & Data (PSY) Medications Administered Aspirin (Aspirin 81 Mg Ectab) 81 mg PO QAM JESSICA Stop: 02/16/22 08:59 Last Admin: 01/17/22 08:33 Dose: 81 mg Documented By: TORIBIO Donepezil HCl (Donepezil Hcl 5 Mg Tab) 5 mg PO DAILY JESSICA Stop: 02/16/22 08:59 Last Admin: 01/17/22 08:33 Dose: 5 mg Documented By: TORIBIO Quetiapine Fumarate (Quetiapine Fumarate 25 Mg Tablet) 50 mg PO HS JESSICA Stop: 02/15/22 20:59 Last Admin: 01/16/22 21:06 Dose: 50 mg Documented By: JO Quetiapine Fumarate (Quetiapine Fumarate 25 Mg Tablet) 25 mg PO QAM JESSICA Stop: 02/16/22 08:59 Last Admin: 01/17/22 08:33 Dose: 25 mg Documented By: TORIBIO Coding Level of Care Code 80505 Inpt Consult Level 3 Diagnoses Dementia with behavioral disturbance F03.918
--- NOTE | 2022-01-17 17:21 | Hospitalist Progress Note ---
Date of Service January 17, 2022 Assessment & Plan (1) Dementia with behavioral disturbance: Plan: Patient presenting with increased agitation. Recently admitted to [facility] 12/20 through 01/03 for similar. Patient discharged on Seroquel and as needed olanzapine. Patient was accepted to [facility] during previous admission however son elected to take the patient home to be her primary caregiver. Son dropped the patient off at the ED on 01/16 and did not come in to the hospital. Continue previously prescribed dose of Seroquel. PRN IM olanzapine for severe agitation. Can use seroquel 12.5 mg po bid prn for any agitation. d/w psy. Psych onboard. Patient will need residential placement, Office of Aging and Adult Protective Services have been notified of the situation. (2) Hypothyroidism: Plan: According to patient's pharmacy, she is prescribed levothyroxine 88 mcg daily however this has not been picked up since November for a 30-day supply TSH wnl, continue prior dose. tft in 6 weeks. (3) DVT prophylaxis: Plan: SCDs for now due to increased fall risk and agitation Plan Dispo: medically stable, can go to memory care placement ?? w/ psychiatry recs. Admission and Anticipated Discharge Date Admission Date: January 16, 2022 Subjective Patient seen and examined at bedside as a follow-up of dementia with behavioral disturbances. Patient was sitting up in bed, on room air, NAD, denies any pain or discomfort, ROS n/a due to cognition status. Physical Exam Physical Exam: GENERAL: Alert and awake, oriented to self. NAD, on RA. HEENT: No pallor, no icterus. Pupils equal, round and reactive to light. Oral mucosa moist. NECK: No JVD, no neck masses. HEART: S1 and S2 heard. Regular rate and rhythm. No murmur, no gallop. RESPIRATORY SYSTEM: Normal AP diameter. No accessory muscle use. No wheezing, no crackles. ABDOMEN: Soft, bowel sounds present, nontender, no distention. CENTRAL NERVOUS SYSTEM: No facial droop. Speech is clear. Obeys simple commands. Moves extremities. EXTREMITIES: No edema, no erythema seen. Results & Data Results & Data ([facility]) Vital Signs (Past 12 Hours) Vital Signs Temp Pulse Pulse Resp BP BP Pulse Ox 01/17/22 14:53 36.4 C L 58 L 16 123/73 97 01/17/22 07:15 37.2 C 59 L 16 133/72 99 O2 Del Method 01/17/22 14:53 Room Air 01/17/22 07:15 Room Air
[2022-01-17 17:33] LABS: Appearance Urine Clear (Clear); Bacteria Urine Automated Negative (Negative); Bilirubin Urine Negative (Negative); Blood Urine Negative (Negative); Cast Urine Automated 0 /lpf (0-5); Color Urine Yellow; Glucose Urine UA Negative (Negative); Ketones Urine Negative (Negative); Leukocyte Esterase Urine Trace (Negative); Nitrite Urine Negative (Negative); Protein Urine Negative (Negative); RBC Urine Automated 0-4 /hpf (0-4); Specific Gravity Urine 1.006 (1.000-1.030); Urobilinogen Urine Negative (Negative); pH Urine 6.5 (4.5-7.5)
[2022-01-18] MEDS: OLANZapine 10 MG/2.1 ML SDV IM PRN ×2 (01:54→13:37)
[2022-01-18] MEDS: LEVOTHYROXINE SODIUM 88 MCG TABLET PO SCH (06:46)
[2022-01-18 07:35] LABS: Calcium 8.1 mg/dl (8.5-10.1); Creatinine Clr Calc Pharmacy 76.3 ml/min; Est GFR (Non-African American) 86.2 ml/min; Potassium 3.6 mmol/L (3.5-5.1)
[2022-01-18] MEDS: ASPIRIN 81 MG ECTAB PO SCH (07:55)
[2022-01-18] MEDS: DONEPEZIL HCL 5 MG TAB PO SCH (07:56)
[2022-01-18] MEDS: QUEtiapine FUMARATE 25 MG TABLET PO SCH ×2 (07:56→21:59)
[2022-01-18] MEDS: amLODIPine BESYLATE 5 MG TAB PO SCH (09:43)
--- NOTE | 2022-01-18 11:03 | Psychiatric Progress Note ---
Date of Service January 18, 2022 Impression / Recommendations Impression 76 yo old admitted for dementia with worsening behavioral disturbance. Office of Aging involved as family dropped her off at ED and have not been involved since. Goal in dementia is to avoid medication management of behaviors if possible by maximizing non-pharmacologic strategies for behavioral management. However, given persistent agitation/aggression resulting in need for higher level of care agree with continuing seroquel and using olanzapine as needed as risk/benefit profile continues to favor treatment. Note all antipsychotic medications carry black box warning for increased risk of all-cause mortality in setting of dementia. 01/18/22: Requiring multiple doses of IM zyprexa for breakthrough agitation related to dementia. Agree with plan for 1:1 for reassurance. Would increase seroquel to try to reduce need for IM Zyprexa and she has been tolerating current dose well without any noticeable side effects. (1) Dementia with behavioral disturbance: Plan -Increase to seroquel 37.5mg qAM and 50mg qhs -For behavioral emergency: olanzapine 2.5 mg IM x 1(DO NOT exceed 10mg per 24 hours, check EKG if IM dose required,NEVER co-administer with IM or IV benzodiazepines). -Agree with plan for memory care placement and Office of Aging involvement -Agree with 1-on-1 prn at discretion of hospitalist for agitation/reassurance Interval History Identifying Information 76 yo woman with history of dementia admited medically for worsening agitation at home. Psychiatry consulted for medication recommendations for agitation. Chief Complaint "My mom and dad are parking I need to go meet them!". Subjective Subjective Patient was seen & assessed and interval progress reviewed. Taking po medications with pudding without issue. Required zyprexa 2.5mg IM dose at about 2am due to agitation and again this afternoon at 1:30pm for agitation. Paranoid and suspicious. No side effects endorsed or apparent from seroquel nor zyprexa use. Physical Exam Psychiatric Orientation: alert and oriented to person; + not oriented to place and + not oriented to time Apperance: + disheveled Eye Contact: + fair eye contact Motor Behavior: no abnormal motor movements Speech: + abnormal rate/rhythm/volume of speech (brief ) Affect: + irritable affect Mood: + irritable mood Thought Process: + looseness of associations Thought Content: + paranoid Suicidal Thoughts: denies suicidal thoughts Homicidal Thoughts: denies homicidal thoughts Hallucinations: no auditory hallucinations and no visual hallucinations Cognition: language grossly intact; + recent memory not intact and + attention not intact Insight: + severely impaired insight Judgement: + severely impaired judgement Vital Signs (Past 24 Hours) Last Vital Signs Temp 36.8 C 01/18/22 07:10 Pulse 65 01/18/22 07:10 Resp 16 01/18/22 07:10 BP 172/80 H 01/18/22 07:10 Pulse Ox 90 01/18/22 07:10 O2 Del Method 01/18/22 07:10 Results & Data ([facility]) Laboratory Results Laboratory Results - last 24 hr 01/17/22 01/18/22 17:05 06:42 Sodium 139 Potassium 3.6 Chloride 106 Carbon Dioxide 28 Anion Gap 5 BUN 13 Creatinine 0.65 Est Cr Clr Drug Dosing 76.3 Est GFR ( Amer) 100.0 Est GFR (Non-Af Amer) 86.2 BUN/Creatinine Ratio 20.0 Glucose 106 H Calcium 8.1 L Magnesium 2.0 Urine Color Yellow Urine Appearance Clear Urine pH 6.5 Ur Specific [place] 1.006 Urine Protein Negative Urine Glucose (UA) Negative Urine Ketones Negative Urine Blood Negative Urine Nitrite Negative Urine Bilirubin Negative Urine Urobilinogen Negative Ur Leukocyte Esterase Trace H Urine WBC (Auto) 1-5 Urine RBC (Auto) 0-4 U Hyaline Cast (Auto) 0 U Epithel Cells (Auto) 10-20 H Urine Bacteria (Auto) Negative Current Inpatient Medications Current Inpatient Medications: Current Inpatient Medications Acetaminophen (Acetaminophen 325 Mg Tab) 650 mg PO Q4H PRN PRN Reason: pain/fever Stop: 02/15/22 20:49 Amlodipine Besylate (Amlodipine Besylate 5 Mg Tab) [facility] Stop: 02/17/22 09:14 Last Admin: 01/18/22 09:43 Dose: 2.5 mg Aspirin (Aspirin 81 Mg Ectab) 81 mg PO QAM [facility] Stop: 02/16/22 08:59 Last Admin: 01/18/22 07:55 Dose: 81 mg Donepezil HCl (Donepezil Hcl 5 Mg Tab) 5 mg PO DAILY [facility] Stop: 02/16/22 08:59 Last Admin: 01/18/22 07:56 Dose: 5 mg Levothyroxine Sodium (Levothyroxine Sodium 88 Mcg Tablet) 88 mcg PO DAILYBB JESSICA Stop: 02/17/22 06:29 Last Admin: 01/18/22 06:46 Dose: 88 mcg Olanzapine (Olanzapine 10 Mg/2.1 Ml Sdv) 2.5 mg IM BID PRN PRN Reason: Agitation Stop: 02/15/22 20:49 Last Admin: 01/18/22 01:54 Dose: 2.5 mg Quetiapine Fumarate (Quetiapine Fumarate 25 Mg Tablet) 50 mg PO HS JESSICA Stop: 02/15/22 20:59 Last Admin: 01/17/22 20:02 Dose: 50 mg Quetiapine Fumarate (Quetiapine Fumarate 25 Mg Tablet) 25 mg PO QAM JESSICA Stop: 02/16/22 08:59 Last Admin: 01/18/22 07:56 Dose: 25 mg
[2022-01-18] MEDS ORDERED: hydrALAZINE HCL 25 MG TAB PO PRN (16:08)
--- NOTE | 2022-01-18 16:11 | Hospitalist Progress Note ---
Date of Service January 18, 2022 Assessment & Plan (1) Dementia with behavioral disturbance: Plan: Patient presenting with increased agitation. Recently admitted to [facility] 12/20 through 01/03 for similar. Patient discharged on Seroquel and as needed olanzapine. Patient was accepted to [facility] during previous admission however son elected to take the patient home to be her primary caregiver. Son dropped the patient off at the ED on 01/16 and did not come in to the hospital. Continue previously prescribed dose of Seroquel. PRN IM olanzapine for severe agitation. Can use seroquel 12.5 mg po bid prn for any agitation. d/w psy. plan to increased am seroquel to 37.5 mg. Psych onboard. Patient will need halfway placement, Office of Aging and Adult Protective Services have been notified of the situation. (2) Hypothyroidism: Plan: According to patient's pharmacy, she is prescribed levothyroxine 88 mcg daily however this has not been picked up since November for a 30-day supply TSH wnl, continue prior dose. tft in 6 weeks. HTN: BP on higher side, small dose amlod started, prn po hydralazine added, can add further bp meds depending on the need of prn hydralazine. (3) DVT prophylaxis: Plan: SCDs for now due to increased fall risk and agitation Plan Dispo: medically stable, can go to memory care placement ?? w/ psychiatry recs. Admission and Anticipated Discharge Date Admission Date: January 16, 2022 Subjective Patient seen and examined at bedside as a follow-up of dementia with behavioral disturbances. Patient was sitting up in wheelchair, on room air, NAD, denies any pain or discomfort, ROS n/a due to cognition status. Physical Exam Physical Exam: GENERAL: Alert and awake, oriented to self. NAD, on RA. HEENT: No pallor, no icterus. Pupils equal, round and reactive to light. Oral mucosa moist. NECK: No JVD, no neck masses. HEART: S1 and S2 heard. Regular rate and rhythm. No murmur, no gallop. RESPIRATORY SYSTEM: Normal AP diameter. No accessory muscle use. No wheezing, no crackles. ABDOMEN: Soft, bowel sounds present, nontender, no distention. CENTRAL NERVOUS SYSTEM: No facial droop. Speech is clear. Obeys simple commands. Moves extremities. EXTREMITIES: No edema, no erythema seen. Results & Data Results & Data ([facility]) Vital Signs (Past 12 Hours) Vital Signs Temp Pulse Resp BP Pulse Ox O2 Del Method 01/18/22 14:49 36.6 C 95 H 20 184/102 H 97 Room Air 01/18/22 07:10 36.8 C 65 16 172/80 H 90 Room Air
[2022-01-19] MEDS: LEVOTHYROXINE SODIUM 88 MCG TABLET PO SCH (05:47)
[2022-01-19 07:59] LABS: BUN Creatinine Ratio 19.4 (10-20); Calcium 8.6 mg/dl (8.5-10.1); Est GFR (Non-African American) 85.4 ml/min
[2022-01-19] MEDS: ASPIRIN 81 MG ECTAB PO SCH (08:53)
[2022-01-19] MEDS: amLODIPine BESYLATE 5 MG TAB PO SCH (08:53)
[2022-01-19] MEDS: DONEPEZIL HCL 5 MG TAB PO SCH (08:53)
[2022-01-19] MEDS: QUEtiapine FUMARATE 25 MG TABLET PO SCH ×2 (09:20→20:05)
--- NOTE | 2022-01-19 13:25 | Hospitalist Progress Note ---
Date of Service January 19, 2022 Assessment & Plan (1) Dementia with behavioral disturbance: Plan: Patient presenting with increased agitation. Recently admitted to [facility] 12/20 through 01/03 for similar. Patient discharged on Seroquel and as needed olanzapine. Patient was accepted to [facility] during previous admission however son elected to take the patient home to be her primary caregiver. Son dropped the patient off at the ED on 01/16 and did not come in to the hospital. Plan: As per recommendation by psychiatry; currently on Seroquel 37.5 qam and 50 mg at bedtime. For behavioral emergency; olanzapine 2.5 mg IM to be given. Patient required 2 doses yesterday. One-to-one for agitation. Psych onboard. Patient will need extermination supervisor placement, Office of Aging and Adult Protective Services involved. (2) Hypothyroidism: Plan: According to patient's pharmacy, she is prescribed levothyroxine 88 mcg daily however this has not been picked up since November for a 30-day supply TSH wnl, continue prior dose. tft in 6 weeks. HTN: BP on higher side, small dose amlod started, prn po hydralazine added, can add further bp meds depending on the need of prn hydralazine. (3) DVT prophylaxis: Plan: SCDs for now due to increased fall risk and agitation Plan Dispo: medically stable, can go to memory care placement ?? w/ psychiatry recs. Admission and Anticipated Discharge Date Admission Date: January 16, 2022 Subjective Patient seen and examined at bedside. She is easily awake able with voice; not in any distress. She is not oriented to time place or person. Review of Systems Review of Systems: All systems reviewed & are unremarkable except as noted in Subjective Physical Exam Physical Exam: GENERAL: Alert and awake, oriented to self. Not oriented to place or date. HEENT: No pallor, no icterus. Pupils equal, round and reactive to light. Oral mucosa moist. NECK: No JVD, no neck masses. HEART: S1 and S2 heard. Regular rate and rhythm. No murmur, no gallop. RESPIRATORY SYSTEM: Normal AP diameter. No accessory muscle use. No wheezing, no crackles. ABDOMEN: Soft, bowel sounds present, nontender, no distention. CENTRAL NERVOUS SYSTEM: No facial droop. Speech is clear. Obeys simple commands. Moves extremities. EXTREMITIES: No edema, no erythema seen. Results & Data Results & Data ([facility]) Vital Signs (Past 12 Hours) Vital Signs Temp Pulse Resp BP Pulse Ox O2 Del Method 01/19/22 07:15 36.5 C 60 18 150/80 H 97 Room Air 01/19/22 06:35 36.4 C L 75 18 138/79 96 Room Air Laboratory Results Laboratory Results WBC 5.65 K/ul (4.8-10.8) 01/17/22 09:00 RBC 4.01 M/uL (3.93-5.22) 01/17/22 09:00 Hgb 11.5 g/dl (12.0-16.0) L 01/17/22 09:00 Hct 35.6 % (34.1-44.9) 01/17/22 09:00 MCV 88.8 fL (80.0-100.0) 01/17/22 09:00 MCH 28.7 pg (25.0-34.0) 01/17/22 09:00 MCHC 32.3 g/dL (32.0-36.0) 01/17/22 09:00 RDW Std Deviation 48.5 fL (36.4-46.3) H 01/17/22 09:00 RDW Coeff of [place]id[place] 14.8 % (11.5-14.5) H 01/17/22 09:00 Plt Count 399 K/uL (130-400) 01/17/22 09:00 MPV 8.5 fL (9.4-12.3) L 01/17/22 09:00 Immature Gran % (Auto) 0.3 % 01/16/22 17:45 Neut % (Auto) 63.4 % 01/16/22 17:45 Lymph % (Auto) 25.6 % 01/16/22 17:45 Mower % (Auto) 8.7 % 01/16/22 17:45 Eos % (Auto) 1.5 % 01/16/22 17:45 Baso % (Auto) 0.5 % 01/16/22 17:45 Neut # (Auto) 4.68 K/uL (1.4-6.5) 01/16/22 17:45 Lymph # (Auto) 1.89 K/uL (1.2-3.4) 01/16/22 17:45 Mower # (Auto) 0.64 K/uL (0.24-0.82) 01/16/22 17:45 Eos # (Auto) 0.11 K/uL (0-0.50) 01/16/22 17:45 Baso # (Auto) 0.04 K/uL (0-0.2) 01/16/22 17:45 Immature Gran # (Auto) 0.02 K/uL (0.00-0.02) 01/16/22 17:45 PT 10.5 Seconds (9.0-12.0) 01/16/22 17:45 INR 1.0 (0.9-1.1) 01/16/22 17:45 APTT 25.7 Seconds (21.0-31.0) 01/16/22 17:45 PTT Ratio 0.9 01/16/22 17:45 Sodium 141 mmol/L (136-145) 01/19/22 07:07 Potassium 4.0 mmol/L (3.5-5.1) 01/19/22 07:07 Chloride 107 mmol/L (98-107) 01/19/22 07:07 Carbon Dioxide 29 mmol/L (21-32) 01/19/22 07:07 Anion Gap 5 (3-11) 01/19/22 07:07 BUN 13 mg/dl (6-23) 01/19/22 07:07 Creatinine 0.67 mg/dl (0.6-1.2) 01/19/22 07:07 Est Cr Clr Drug Dosing 74.0 ml/min 01/19/22 07:07 Est GFR ( Amer) 99.0 ml/min 01/19/22 07:07 Est GFR (Non-Af Amer) 85.4 ml/min 01/19/22 07:07 BUN/Creatinine Ratio 19.4 (10-20) 01/19/22 07:07 Glucose 94 mg/dl (70-99(Fasting)) 01/19/22 07:07 Calcium 8.6 mg/dl (8.5-10.1) 01/19/22 07:07 Magnesium 2.0 mg/dl (1.7-2.4) 01/18/22 06:42 Total Bilirubin 0.4 mg/dl (0.2-1.0) 01/16/22 17:45 AST 20 U/L (13-39) 01/16/22 17:45 ALT 18 U/L (7-52) 01/16/22 17:45 Alkaline Phosphatase 100 U/L (34-104) 01/16/22 17:45 Total Creatine Kinase 61 U/L (26-192) 01/16/22 17:45 Troponin I High Sens 7.2 pg/ml (0-14) 01/16/22 17:45 Total Protein 6.5 gm/dl (6.0-8.3) 01/16/22 17:45 Albumin 3.7 gm/dl (3.4-5.0) 01/16/22 17:45 Globulin 2.8 gm/dl (2.5-4.0) 01/16/22 17:45 Albumin/Globulin Ratio 1.3 (0.9-2) 01/16/22 17:45 TSH 1.652 uIu/ml (0.300-4.500) 01/16/22 17:45 Urine Color Yellow 01/17/22 17:05 Urine Appearance Clear (Clear) 01/17/22 17:05 Urine pH 6.5 (4.5-7.5) 01/17/22 17:05 Ur Specific [place] 1.006 (1.000-1.030) 01/17/22 17:05 Urine Protein Negative (Negative) 01/17/22 17:05 Urine Glucose (UA) Negative (Negative) 01/17/22 17:05 Urine Ketones Negative (Negative) 01/17/22 17:05 Urine Blood Negative (Negative) 01/17/22 17:05 Urine Nitrite Negative (Negative) 01/17/22 17:05 Urine Bilirubin Negative (Negative) 01/17/22 17:05 Urine Urobilinogen Negative (Negative) 01/17/22 17:05 Ur Leukocyte Esterase Trace (Negative) H 01/17/22 17:05 Urine WBC (Auto) 1-5 /hpf (0-5) 01/17/22 17:05 Urine RBC (Auto) 0-4 /hpf (0-4) 01/17/22 17:05 U Hyaline Cast (Auto) 0 /lpf (0-5) 01/17/22 17:05 U Epithel Cells (Auto) 10-20 /lpf (0-5) H 01/17/22 17:05 Urine Bacteria (Auto) Negative (Negative) 01/17/22 17:05 SARS-CoV-2, RNA, NAAT NEGATIVE (NEGATIVE) 01/16/22 Unknown Impressions Chest X-Ray 01/16/22 14:04 XR chest 1V portable CLINICAL HISTORY: weakness TECHNIQUE: Single frontal radiograph of the chest was obtained. Comparison: Comparison is made to chest radiograph 12/25/2021 FINDINGS: No lines and tubes are seen. Calcified aortic knob is seen. The lungs are clear. No evidence of pleural effusion or pneumothorax. IMPRESSION: No acute chest disease. ACT 112: Negative or not required by law. Electronically signed by: Enrique Herrera M.D. 01/16/2022 3:51 PM
[2022-01-20] MEDS: LEVOTHYROXINE SODIUM 88 MCG TABLET PO SCH (06:56)
[2022-01-20] MEDS: amLODIPine BESYLATE 5 MG TAB PO SCH (08:12)
[2022-01-20] MEDS: ASPIRIN 81 MG ECTAB PO SCH (08:12)
[2022-01-20] MEDS: QUEtiapine FUMARATE 25 MG TABLET PO SCH ×2 (08:12→21:20)
[2022-01-20] MEDS: DONEPEZIL HCL 5 MG TAB PO SCH (08:12)
[2022-01-20] MEDS: ACETAMINOPHEN 325 MG TAB PO PRN (13:28)
[2022-01-20] MEDS: OLANZapine 10 MG/2.1 ML SDV IM PRN (14:24)
--- NOTE | 2022-01-20 14:35 | Hospitalist Progress Note ---
Date of Service January 20, 2022 Assessment & Plan (1) Dementia with behavioral disturbance: Plan: Patient presenting with increased agitation. Recently admitted to [facility] 12/20 through 01/03 for similar. Patient discharged on Seroquel and as needed olanzapine. Patient was accepted to [facility] during previous admission however son elected to take the patient home to be her primary caregiver. Son dropped the patient off at the ED on 01/16 and did not come in to the hospital. Plan: As per recommendation by psychiatry; currently on Seroquel 37.5 qam and 50 mg at bedtime. For behavioral emergency; olanzapine 2.5 mg IM to be given. One-to-one for agitation. Psych onboard. Patient will need oysterman placement, Office of Aging and Adult Protective Services involved. (2) Hypothyroidism: Plan: According to patient's pharmacy, she is prescribed levothyroxine 88 mcg daily however this has not been picked up since November for a 30-day supply TSH wnl, continue prior dose. tft in 6 weeks. HTN: BP on higher side, amlodipine titrated up to 5 mg once daily; on as needed hydralazine as well. (3) DVT prophylaxis: Plan: SCDs for now due to increased fall risk and agitation Plan Dispo: medically stable, can go to memory care placement Admission and Anticipated Discharge Date Admission Date: January 16, 2022 Subjective Calm and cooperative; she is oriented to self; not oriented to place. Review of Systems Review of Systems: All systems reviewed & are unremarkable except as noted in Subjective Physical Exam Physical Exam: GENERAL: Alert and awake, oriented to self. Not oriented to place or date. HEENT: No pallor, no icterus. Pupils equal, round and reactive to light. Oral mucosa moist. NECK: No JVD, no neck masses. HEART: S1 and S2 heard. Regular rate and rhythm. No murmur, no gallop. RESPIRATORY SYSTEM: Normal AP diameter. No accessory muscle use. No wheezing, no crackles. ABDOMEN: Soft, bowel sounds present, nontender, no distention. CENTRAL NERVOUS SYSTEM: No facial droop. Speech is clear. Obeys simple commands. Moves extremities. EXTREMITIES: No edema, no erythema seen. Results & Data Results & Data ([facility]) Vital Signs (Past 12 Hours) Vital Signs Temp Pulse Resp BP Pulse Ox O2 Del Method 01/20/22 07:47 36.6 C 74 22 150/86 H 94 Room Air
[2022-01-21] MEDS: LEVOTHYROXINE SODIUM 88 MCG TABLET PO SCH (06:24)
[2022-01-21] MEDS: DONEPEZIL HCL 5 MG TAB PO SCH (08:33)
[2022-01-21] MEDS: ASPIRIN 81 MG ECTAB PO SCH (08:33)
[2022-01-21] MEDS: amLODIPine BESYLATE 5 MG TAB PO SCH (08:33)
[2022-01-21] MEDS: QUEtiapine FUMARATE 25 MG TABLET PO SCH ×2 (08:34→20:38)
[2022-01-21] MEDS: ACETAMINOPHEN 325 MG TAB PO PRN (14:10)
--- NOTE | 2022-01-21 14:14 | Psychiatric Progress Note ---
Date of Service January 21, 2022 Impression / Recommendations Impression 76 yo old admitted for dementia with worsening behavioral disturbance. Office of Aging involved as family dropped her off at ED and have not been involved since. Goal in dementia is to avoid medication management of behaviors if possible by maximizing non-pharmacologic strategies for behavioral management. However, given persistent agitation/aggression resulting in need for higher level of care agree with continuing seroquel and using olanzapine as needed as risk/benefit profile continues to favor treatment. Note all antipsychotic medications carry black box warning for increased risk of all-cause mortality in setting of dementia. 01/21/22: Remains irritable due to delusion that her parents are coming to pick her up. No signs of EPS/side effects from seroquel. Given ongoing need of 1-on-1 and intermittent IM zyprexa would increase seroquel and then if not effective switch to zyprexa 2.5mg po BID. (1) Dementia with behavioral disturbance: Plan -Increase to seroquel 50mg BID -For behavioral emergency: olanzapine 2.5 mg IM x 1(DO NOT exceed 10mg per 24 hours, check EKG if IM dose required,NEVER co-administer with IM or IV benzodiazepines). -Agree with plan for memory care placement and Office of Aging involvement -Agree with 1-on-1 prn at discretion of hospitalist for agitation/reassurance Interval History Identifying Information 76 yo woman with history of dementia admited medically for worsening agitation at home. Psychiatry consulted for medication recommendations for agitation. Chief Complaint "My dad is coming to get me and he's going to beat you all up". Review of Systems Notes not sleeping well, eating Subjective Subjective Patient was seen & assessed and interval progress reviewed. Required IM zyprexa yesterday. More irritable today, believes her father is coming to pick her up and gets upset when redirected about need to remain in her room and the hospital. Cursing and angry but sitting in chair by her window. Physical Exam Psychiatric Orientation: alert and oriented to person; + not oriented to place and + not oriented to time Apperance: + disheveled Eye Contact: + fair eye contact Motor Behavior: no abnormal motor movements Speech: normal rate/rhythm/volume of speech Affect: + irritable affect Mood: + angry mood Thought Process: + looseness of associations and + perseveration Thought Content: + paranoid and + delusions Suicidal Thoughts: denies suicidal thoughts Homicidal Thoughts: denies homicidal thoughts Hallucinations: no auditory hallucinations and no visual hallucinations Cognition: language grossly intact; + recent memory not intact and + attention not intact Insight: + severely impaired insight Judgement: + severely impaired judgement Vital Signs (Past 24 Hours) Last Vital Signs Temp 36.3 C L 01/21/22 07:19 Pulse 64 01/21/22 07:19 Resp 16 01/21/22 07:19 BP 146/83 H 01/21/22 07:19 Pulse Ox 94 01/21/22 07:19 O2 Del Method 01/21/22 07:19 Results & Data ([facility]) Current Inpatient Medications Current Inpatient Medications: Current Inpatient Medications Acetaminophen (Acetaminophen 325 Mg Tab) 650 mg PO Q4H PRN PRN Reason: pain/fever Stop: 02/15/22 20:49 Last Admin: 01/21/22 14:10 Dose: 650 mg Amlodipine Besylate (Amlodipine Besylate 5 Mg Tab) 5 mg PO QAM JESSICA Stop: 02/20/22 08:59 Last Admin: 01/21/22 08:33 Dose: 5 mg Aspirin (Aspirin 81 Mg Ectab) 81 mg PO QAM JESSICA Stop: 02/16/22 08:59 Last Admin: 01/21/22 08:33 Dose: 81 mg Donepezil HCl (Donepezil Hcl 5 Mg Tab) 5 mg PO DAILY JESSICA Stop: 02/16/22 08:59 Last Admin: 01/21/22 08:33 Dose: 5 mg Hydralazine HCl (Hydralazine Hcl 25 Mg Tab) 25 mg PO Q8H PRN PRN Reason: Hypertension Stop: 02/17/22 16:14 Last Admin: 01/18/22 17:31 Dose: 25 mg Levothyroxine Sodium (Levothyroxine Sodium 88 Mcg Tablet) 88 mcg PO DAILYBB JESSICA Stop: 02/17/22 06:29 Last Admin: 01/21/22 06:24 Dose: 88 mcg Olanzapine (Olanzapine 10 Mg/2.1 Ml Sdv) 2.5 mg IM BID PRN PRN Reason: Agitation Stop: 02/15/22 20:49 Last Admin: 01/20/22 14:24 Dose: 2.5 mg Quetiapine Fumarate (Quetiapine Fumarate 25 Mg Tablet) 50 mg PO HS JESSICA Stop: 02/15/22 20:59 Last Admin: 01/20/22 21:20 Dose: Not Given Quetiapine Fumarate (Quetiapine Fumarate 25 Mg Tablet) 37.5 mg PO QAM JESSICA Stop: 02/18/22 08:59 Last Admin: 01/21/22 08:34 Dose: 37.5 mg
--- NOTE | 2022-01-21 16:52 | Hospitalist Progress Note ---
Date of Service January 21, 2022 Assessment & Plan (1) Dementia with behavioral disturbance: Plan: Patient presenting with increased agitation. Recently admitted to [facility] 12/20 through 01/03 for similar. Patient discharged on Seroquel and as needed olanzapine. Patient was accepted to [facility] during previous admission however son elected to take the patient home to be her primary caregiver. Son dropped the patient off at the ED on 01/16 and did not come in to the hospital. Plan: As per recommendation by psychiatry; currently on Seroquel 50 qam and 50 mg at bedtime. For behavioral emergency; olanzapine 2.5 mg IM to be given. One-to-one for agitation. Psych onboard. Patient will need bus analyst placement, Office of Aging and Adult Protective Services involved. (2) Hypothyroidism: Plan: According to patient's pharmacy, she is prescribed levothyroxine 88 mcg daily however this has not been picked up since November for a 30-day supply TSH wnl, continue prior dose. tft in 6 weeks. HTN: BP on higher side, amlodipine titrated up to 5 mg once daily; on as needed hydralazine as well. (3) DVT prophylaxis: Plan: SCDs for now due to increased fall risk and agitation. Encourage ambulation w/ assistance. Plan Dispo: medically stable, can go to memory care placement Admission and Anticipated Discharge Date Admission Date: January 16, 2022 Subjective Patient seen and examined at bedside as a follow-up of dementia with behavioral disturbances. Patient was sitting up in bed, on room air, NAD, denies any pain or discomfort, ROS n/a due to cognition status. Physical Exam Physical Exam: GENERAL: Alert and awake, oriented to self. NAD, on RA. HEENT: No pallor, no icterus. Pupils equal, round and reactive to light. Oral mucosa moist. NECK: No JVD, no neck masses. HEART: S1 and S2 heard. Regular rate and rhythm. No murmur, no gallop. RESPIRATORY SYSTEM: Normal AP diameter. No accessory muscle use. No wheezing, no crackles. ABDOMEN: Soft, bowel sounds present, nontender, no distention. CENTRAL NERVOUS SYSTEM: No facial droop. Speech is clear. Obeys simple commands. Moves extremities. EXTREMITIES: No edema, no erythema seen. Results & Data Results & Data ([facility]) Vital Signs (Past 12 Hours) Vital Signs Temp Pulse Pulse Resp BP Pulse Ox O2 Del Method 01/21/22 15:12 36.6 C 80 18 137/76 98 Room Air 01/21/22 07:19 36.3 C L 64 16 146/83 H 94 Room Air
[2022-01-22] MEDS: LEVOTHYROXINE SODIUM 88 MCG TABLET PO SCH (06:33)
[2022-01-22] MEDS: DONEPEZIL HCL 5 MG TAB PO SCH (08:48)
[2022-01-22] MEDS: amLODIPine BESYLATE 5 MG TAB PO SCH (08:48)
[2022-01-22] MEDS: ASPIRIN 81 MG ECTAB PO SCH (08:48)
[2022-01-22] MEDS: QUEtiapine FUMARATE 25 MG TABLET PO SCH ×2 (08:48→21:44)
--- NOTE | 2022-01-22 14:27 | Hospitalist Progress Note ---
Date of Service January 22, 2022 Assessment & Plan (1) Dementia with behavioral disturbance: Plan: Patient presenting with increased agitation. Recently admitted to [facility] 12/20 through 01/03 for similar. Patient discharged on Seroquel and as needed olanzapine. Patient was accepted to [facility] during previous admission however son elected to take the patient home to be her primary caregiver. Son dropped the patient off at the ED on 01/16 and did not come in to the hospital. Plan: As per recommendation by psychiatry; currently on Seroquel 50 qam and 50 mg at bedtime. For behavioral emergency; olanzapine 2.5 mg IM to be given. One-to-one for agitation. Psych onboard. Patient will need rat exterminator placement, Office of Aging and Adult Protective Services involved. (2) Hypothyroidism: Plan: According to patient's pharmacy, she is prescribed levothyroxine 88 mcg daily however this has not been picked up since November for a 30-day supply TSH wnl, continue prior dose. tft in 6 weeks. HTN: BP on higher side, amlodipine titrated up to 5 mg once daily; on as needed hydralazine as well. (3) DVT prophylaxis: Plan: SCDs for now due to increased fall risk and agitation. Encourage ambulation w/ assistance. Plan Dispo: medically stable, can go to memory care placement Admission and Anticipated Discharge Date Admission Date: January 16, 2022 Subjective Patient seen and examined at bedside as a follow-up of dementia with behavioral disturbances. Patient was sitting up in bed, on room air, NAD, denies any pain or discomfort, ROS n/a due to cognition status. Per sitter, pt is eating ok, moving around ok. Physical Exam Physical Exam: GENERAL: Alert and awake, oriented to self. NAD, on RA. HEENT: No pallor, no icterus. Pupils equal, round and reactive to light. Oral mucosa moist. NECK: No JVD, no neck masses. HEART: S1 and S2 heard. Regular rate and rhythm. No murmur, no gallop. RESPIRATORY SYSTEM: Normal AP diameter. No accessory muscle use. No wheezing, no crackles. ABDOMEN: Soft, bowel sounds present, nontender, no distention. CENTRAL NERVOUS SYSTEM: No facial droop. Speech is clear. Obeys simple commands. Moves extremities. EXTREMITIES: No edema, no erythema seen. Results & Data Results & Data ([facility]) Vital Signs (Past 12 Hours) Vital Signs Temp Pulse Resp BP Pulse Ox O2 Del Method 01/22/22 07:13 36.4 C L 72 17 131/79 100 Room Air
[2022-01-23] MEDS: LEVOTHYROXINE SODIUM 88 MCG TABLET PO SCH (06:34)
[2022-01-23] MEDS: amLODIPine BESYLATE 5 MG TAB PO SCH (08:30)
[2022-01-23] MEDS: ASPIRIN 81 MG ECTAB PO SCH (08:31)
[2022-01-23] MEDS: QUEtiapine FUMARATE 25 MG TABLET PO SCH ×2 (08:31→20:15)
[2022-01-23] MEDS: DONEPEZIL HCL 5 MG TAB PO SCH (08:31)
--- NOTE | 2022-01-23 16:51 | Hospitalist Progress Note ---
Date of Service January 23, 2022 Assessment & Plan (1) Dementia with behavioral disturbance: Plan: Patient presenting with increased agitation. Recently admitted to [facility] 12/20 through 01/03 for similar. Patient discharged on Seroquel and as needed olanzapine. Patient was accepted to [facility] during previous admission however son elected to take the patient home to be her primary caregiver. Son dropped the patient off at the ED on 01/16 and did not come in to the hospital. Plan: As per recommendation by psychiatry; currently on Seroquel 50 qam and 50 mg at bedtime. For behavioral emergency; olanzapine 2.5 mg IM to be given. One-to-one for agitation. Psych onboard. Patient will need exterminator termite placement, Office of Aging and Adult Protective Services involved. (2) Hypothyroidism: Plan: According to patient's pharmacy, she is prescribed levothyroxine 88 mcg daily however this has not been picked up since November for a 30-day supply TSH wnl, continue prior dose. tft in 6 weeks. HTN: BP on higher side, amlodipine titrated up to 5 mg once daily; on as needed hydralazine as well. (3) DVT prophylaxis: Plan: SCDs for now due to increased fall risk and agitation. Encourage ambulation w/ assistance. Plan Dispo: medically stable, can go to memory care placement Admission and Anticipated Discharge Date Admission Date: January 16, 2022 Subjective Patient seen and examined at bedside as a follow-up of dementia with behavioral disturbances. Patient was sitting up in bed, on room air, NAD, denies any pain or discomfort, ROS n/a due to cognition status. Per sitter, pt is eating ok, moving around ok. Physical Exam Physical Exam: GENERAL: Alert and awake, oriented to self. NAD, on RA. HEENT: No pallor, no icterus. Pupils equal, round and reactive to light. Oral mucosa moist. NECK: No JVD, no neck masses. HEART: S1 and S2 heard. Regular rate and rhythm. No murmur, no gallop. RESPIRATORY SYSTEM: Normal AP diameter. No accessory muscle use. No wheezing, no crackles. ABDOMEN: Soft, bowel sounds present, nontender, no distention. CENTRAL NERVOUS SYSTEM: No facial droop. Speech is clear. Obeys simple commands. Moves extremities. EXTREMITIES: No edema, no erythema seen. Results & Data Results & Data ([facility]) Vital Signs (Past 12 Hours) Vital Signs O2 Del Method 01/23/22 08:30 Room Air
[2022-01-24] MEDS: LEVOTHYROXINE SODIUM 88 MCG TABLET PO SCH (06:16)
[2022-01-24] MEDS: amLODIPine BESYLATE 5 MG TAB PO SCH (07:44)
[2022-01-24] MEDS: QUEtiapine FUMARATE 25 MG TABLET PO SCH ×2 (07:44→23:43)
[2022-01-24] MEDS: ASPIRIN 81 MG ECTAB PO SCH (07:44)
[2022-01-24] MEDS: DONEPEZIL HCL 5 MG TAB PO SCH (07:44)
--- NOTE | 2022-01-24 13:37 | Hospitalist Progress Note ---
Date of Service January 24, 2022 Assessment & Plan (1) Dementia with behavioral disturbance: Plan: Patient presenting with increased agitation. Recently admitted to [facility] 12/20 through 01/03 for similar. Patient discharged on Seroquel and as needed olanzapine. Patient was accepted to [facility] during previous admission however son elected to take the patient home to be her primary caregiver. Son dropped the patient off at the ED on 01/16 and did not come in to the hospital. Plan: As per recommendation by psychiatry; currently on Seroquel 50 qam and 50 mg at bedtime. For behavioral emergency; olanzapine 2.5 mg IM to be given. q15min check. No need for prn zyprexa after 01/20 Psych onboard. Patient will need custodial placement, Office of Aging and Adult Protective Services involved. (2) Hypothyroidism: Plan: According to patient's pharmacy, she is prescribed levothyroxine 88 mcg daily however this has not been picked up since November for a 30-day supply TSH wnl, continue prior dose. tft in 6 weeks. HTN: BP on higher side, amlodipine titrated up to 5 mg once daily; on as needed hydralazine as well. (3) DVT prophylaxis: Plan: SCDs for now due to increased fall risk and agitation. Encourage ambulation w/ assistance. Plan Dispo: medically stable, can go to memory care placement Admission and Anticipated Discharge Date Admission Date: January 16, 2022 Subjective Patient seen and examined at bedside as a follow-up of dementia with behavioral disturbances. Patient was lying in bed, on room air, NAD, denies any pain or discomfort, ROS n/a due to cognition status. Physical Exam Physical Exam: GENERAL: Alert and awake, oriented to self. NAD, on RA. HEENT: No pallor, no icterus. Pupils equal, round and reactive to light. Oral mucosa moist. NECK: No JVD, no neck masses. HEART: S1 and S2 heard. Regular rate and rhythm. No murmur, no gallop. RESPIRATORY SYSTEM: Normal AP diameter. No accessory muscle use. No wheezing, no crackles. ABDOMEN: Soft, bowel sounds present, nontender, no distention. CENTRAL NERVOUS SYSTEM: No facial droop. Speech is clear. Obeys simple commands. Moves extremities. EXTREMITIES: No edema, no erythema seen. Results & Data Results & Data ([facility]) Vital Signs (Past 12 Hours) Vital Signs Temp Pulse Resp BP Pulse Ox O2 Del Method 01/24/22 07:18 36.4 C L 70 16 136/79 98 Room Air
[2022-01-25] MEDS: LEVOTHYROXINE SODIUM 88 MCG TABLET PO SCH (06:37)
[2022-01-25] MEDS: ASPIRIN 81 MG ECTAB PO SCH (08:29)
[2022-01-25] MEDS: DONEPEZIL HCL 5 MG TAB PO SCH (08:29)
[2022-01-25] MEDS: amLODIPine BESYLATE 5 MG TAB PO SCH (08:29)
[2022-01-25] MEDS: QUEtiapine FUMARATE 25 MG TABLET PO SCH (08:29)
--- NOTE | 2022-01-25 11:51 | Hospitalist Progress Note ---
Date of Service January 25, 2022 Assessment & Plan (1) Dementia with behavioral disturbance: Plan: Patient presenting with increased agitation. Recently admitted to [facility] 12/20 through 01/03 for similar. Patient discharged on Seroquel and as needed olanzapine. Patient was accepted to [facility] during previous admission however son elected to take the patient home to be her primary caregiver. Son dropped the patient off at the ED on 01/16 and did not come in to the hospital. Psych recs noted Currently on Seroquel 50 qam and 50 mg at bedtime. Olanzapine 2.5 mg IM prn agitation. CM working on watermelon inspector placement (2) Hypothyroidism: Plan: According to patient's pharmacy, she is prescribed levothyroxine 88 mcg daily however this has not been picked up since November for a 30-day supply TSH wnl, continue prior dose. Recheck TFT in 6 weeks. (3) Hypertension: Plan: BP is controlled Continue amlodipine 5mg daily (4) DVT prophylaxis: Plan: SCDs for now due to increased fall risk and agitation. Encourage ambulation w/ assistance. Plan Dispo: medically stable, can go to memory care placement Admission and Anticipated Discharge Date Admission Date: January 16, 2022 Subjective Patient seen and examined Patient is awake, alert, oriented to person only, sitting in chair Denied any chest pain, cough, shortness of breath Denied any nausea, vomiting, abd pain, diarrhea Denied fever, chills, dysuria, freq, urgency Physical Exam Constitutional: + well hydrated; no acute distress Eyes: PERRL, conjunctivae normal, anicteric sclerae ENMT: external ear and nose normal, oropharynx normal Respiratory: normal respiratory effort, lungs clear to auscultation Cardiovascular: Rate/Rhythm: regular rate and regular rhythm S1 S2 Gastrointestinal (Abdomen): normal bowel sounds, soft, nontender, no hepatosplenomegaly Musculoskeletal: No pedal edema Neurologic: PERRL, EOMI, accommodation nl, no face palsy, no dysarthria Psychiatric: Orientation: alert, oriented to person and cooperative; + not oriented to place and + not oriented to time Results & Data Results & Data ([facility]) Vital Signs (Past 12 Hours) Vital Signs Temp Pulse Resp BP Pulse Ox O2 Del Method 01/25/22 07:37 36.8 C 58 L 17 122/72 95 Room Air 01/24/22 23:48 36.6 C 60 16 102/68 97 Room Air
[2022-01-25] MEDS ORDERED: OLANZAPINE 2.5 MG TAB PO PRN (14:31)
[2022-01-25] MEDS: OLANZapine 10 MG/2.1 ML SDV IM PRN (15:19)
[2022-01-25] MEDS ORDERED: OLANZapine 10 MG/2.1 ML SDV IM PRN (17:18)
[2022-01-26] MEDS: QUEtiapine FUMARATE 25 MG TABLET PO SCH ×2 (01:36→07:30)
[2022-01-26] MEDS: LEVOTHYROXINE SODIUM 88 MCG TABLET PO SCH (06:21)
[2022-01-26] MEDS: amLODIPine BESYLATE 5 MG TAB PO SCH (07:30)
[2022-01-26] MEDS: DONEPEZIL HCL 5 MG TAB PO SCH (07:30)
[2022-01-26] MEDS: ASPIRIN 81 MG ECTAB PO SCH (07:30)
[2022-01-26] MEDS: OLANZapine 10 MG/2.1 ML SDV IM PRN (10:19)
--- NOTE | 2022-01-26 10:58 | Hospitalist Progress Note ---
Date of Service January 26, 2022 Assessment & Plan (1) Dementia with behavioral disturbance: Plan: Patient presenting with increased agitation. Recently admitted to [facility] 12/20 through 01/03 for similar. Patient discharged on Seroquel and as needed olanzapine. Patient was accepted to [facility] during previous admission however son elected to take the patient home to be her primary caregiver. Son dropped the patient off at the ED on 01/16 and did not come in to the hospital. Has been more delirious in the past 24h Discussed with psychiatrist who recommend discontinuing seroquel, starting zyprexa 5mg HS Continue prn IM zyprexa if needed Continue to redirect as needed CM working on usp placement (2) Hypothyroidism: Plan: According to patient's pharmacy, she is prescribed levothyroxine 88 mcg daily however this has not been picked up since November for a 30-day supply TSH wnl, continue prior dose. Recheck TFT in 6 weeks. (3) Hypertension: Plan: BP is controlled Continue amlodipine 5mg daily (4) DVT prophylaxis: Plan: SCDs for now due to increased fall risk and agitation. Encourage ambulation w/ assistance. Plan Dispo: medically stable, can go to memory care placement Admission and Anticipated Discharge Date Admission Date: January 16, 2022 Subjective Patient seen and examined Patient is awake, alert, oriented to person only Confused Review of Systems Review of Systems: Unobtainable due to cognitive status Physical Exam Constitutional: + well hydrated; no acute distress Eyes: PERRL, conjunctivae normal, anicteric sclerae ENMT: external ear and nose normal, oropharynx normal Respiratory: normal respiratory effort, lungs clear to auscultation Cardiovascular: Rate/Rhythm: regular rate and regular rhythm S1 S2 Gastrointestinal (Abdomen): normal bowel sounds, soft, nontender, no hepatosplenomegaly Neurologic: PERRL, EOMI, accommodation nl, no face palsy, no dysarthria Psychiatric: Orientation: alert, oriented to person and cooperative; + not oriented to place and + not oriented to time Results & Data Results & Data ([facility]) Vital Signs (Past 12 Hours) Vital Signs Temp Pulse Resp BP Pulse Ox O2 Del Method 01/26/22 07:14 36.3 C L 63 20 133/78 93 Room Air
--- NOTE | 2022-01-26 12:09 | Psychiatric Progress Note ---
Date of Service January 26, 2022 Impression / Recommendations Impression 76 yo old admitted for dementia with worsening behavioral disturbance. Office of Aging involved as family dropped her off at ED and have not been involved since. Goal in dementia is to avoid medication management of behaviors if possible by maximizing non-pharmacologic strategies for behavioral management. However, given persistent agitation/aggression resulting in need for higher level of care agree with continuing seroquel and using olanzapine as needed as risk/benefit profile continues to favor treatment. Note all antipsychotic medications carry black box warning for increased risk of all-cause mortality in setting of dementia. 01/26/22: As per Dr. Simental above, at this point no perceived benefit from increase in Seroquel and would agree with plan to cross taper to Zyprexa. (1) Dementia with behavioral disturbance: Plan Dr. Cosme updated, would suggest d/c Seroquel in favor of Zyprexa 5 mg po qhs tonight with decision to shift to split dosing tomorrow. Interval History Identifying Information 76 yo woman with history of dementia admited medically for worsening agitation at home. Psychiatry consulted for medication recommendations for agitation. Chief Complaint "they are waiting for me, I've got to go." Subjective Subjective Patient was seen & assessed and interval progress reviewed with nursing and aide. Patient had a difficult evening/overnight requiring more redirection and multple doses of IM Zyprexa for aggressive behaviors. Nursing notes that she is loud, swearing, threatening aggression. Perseverates on family. Physical Exam Psychiatric patient is loud, restless, perseverative, angry, with poor eye contact. No evidence of hallucinations. Non threatening at this time. Vital Signs (Past 24 Hours) Last Vital Signs Temp 36.3 C L 01/26/22 07:14 Pulse 63 01/26/22 07:14 Resp 20 01/26/22 07:14 BP 133/78 01/26/22 07:14 Pulse Ox 93 01/26/22 07:14 O2 Del Method 01/26/22 07:14 Results & Data ([facility]) Current Inpatient Medications Current Inpatient Medications: Current Inpatient Medications Acetaminophen (Acetaminophen 325 Mg Tab) 650 mg PO Q4H PRN PRN Reason: pain/fever Stop: 02/15/22 20:49 Last Admin: 01/21/22 14:10 Dose: 650 mg Amlodipine Besylate ([facility]ip[facility] Besylate 5 Mg Tab) [facility] Stop: 02/20/22 08:59 Last Admin: 01/26/22 07:30 Dose: 5 mg Aspirin (Aspirin 81 Mg Ectab) 81 mg PO QAM [facility] Stop: 02/16/22 08:59 Last Admin: 01/26/22 07:30 Dose: 81 mg Donepezil HCl (Donepezil Hcl 5 Mg Tab) 5 mg PO DAILY [facility] Stop: 02/16/22 08:59 Last Admin: 01/26/22 07:30 Dose: 5 mg Hydralazine HCl (Hydralazine Hcl 25 Mg Tab) 25 mg PO Q8H PRN PRN Reason: Hypertension Stop: 02/17/22 16:14 Last Admin: 01/18/22 17:31 Dose: 25 mg Levothyroxine Sodium (Levothyroxine Sodium 88 Mcg Tablet) [facility] Stop: 02/17/22 06:29 Last Admin: 01/26/22 06:21 Dose: Not Given Olanzapine (Olanzapine 10 Mg/2.1 Ml Sdv) 2.5 mg IM BID PRN PRN Reason: Agitation Stop: 02/24/22 15:09 Last Admin: 01/26/22 10:19 Dose: 2.5 mg Olanzapine (Olanzapine 10 Mg/2.1 Ml Sdv) 2.5 mg IM NOW PRN PRN Reason: Agitation Stop: 02/24/22 17:17 Last Admin: 01/25/22 17:53 Dose: 2.5 mg Quetiapine Fumarate (Quetiapine Fumarate 25 Mg Tablet) [address] [facility] Stop: 02/15/22 20:59 Last Admin: 01/26/22 01:36 Dose: Not Given Quetiapine Fumarate (Quetiapine Fumarate 25 Mg Tablet) [facility] Stop: 02/21/22 08:59 Last Admin: 01/26/22 07:30 Dose: 50 mg
[2022-01-26] MEDS: OLANZapine 5 MG TABLET PO SCH (19:43)
[2022-01-27] MEDS: LEVOTHYROXINE SODIUM 88 MCG TABLET PO SCH (05:58)
[2022-01-27 06:28] LABS: BUN Creatinine Ratio 22.2 (10-20); Calcium 8.1 mg/dl (8.5-10.1); Creatinine Clr Calc Pharmacy 78.7 ml/min; Est GFR (Non-African American) 87.1 ml/min; Potassium 4.1 mmol/L (3.5-5.1)
[2022-01-27] MEDS: ASPIRIN 81 MG ECTAB PO SCH (09:53)
[2022-01-27] MEDS: DONEPEZIL HCL 5 MG TAB PO SCH (09:53)
[2022-01-27] MEDS: amLODIPine BESYLATE 5 MG TAB PO SCH (09:54)
[2022-01-27] MEDS: ACETAMINOPHEN 325 MG TAB PO PRN ×2 (11:32→16:04)
[2022-01-27] MEDS: OLANZapine 10 MG/2.1 ML SDV IM PRN (11:44)
--- NOTE | 2022-01-27 13:02 | Hospitalist Progress Note ---
Date of Service January 27, 2022 Assessment & Plan (1) Dementia with behavioral disturbance: Plan: Patient presenting with increased agitation. Recently admitted to [facility] 12/20 through 01/03 for similar. Patient discharged on Seroquel and as needed olanzapine. Patient was accepted to [facility] during previous admission however son elected to take the patient home to be her primary caregiver. Son dropped the patient off at the ED on 01/16 and did not come in to the hospital. 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 Recheck TFT in 6 weeks. (3) Hypertension: Plan: BP is controlled Continue amlodipine 5mg daily (4) DVT prophylaxis: Plan: SCDs for now due to increased fall risk and agitation. Encourage ambulation w/ assistance. Plan Dispo: medically stable, can go to memory care placement Admission and Anticipated Discharge Date Admission Date: January 16, 2022 Subjective Patient seen and examined She is alert and oriented to person only, confused but cooperative Physical Exam Constitutional: + well hydrated; no acute distress Eyes: PERRL, conjunctivae normal, anicteric sclerae ENMT: external ear and nose normal, oropharynx normal Respiratory: normal respiratory effort, lungs clear to auscultation Cardiovascular: Rate/Rhythm: regular rate and regular rhythm S1 S2 Gastrointestinal (Abdomen): normal bowel sounds, soft, nontender, no hepatosplenomegaly Musculoskeletal: No pedal edema Neurologic: PERRL, EOMI, accommodation nl, no face palsy, no dysarthria Psychiatric: Orientation: alert, oriented to person and cooperative; + not or iented to place and + not oriented to time Results & Data Results & Data ([facility]) Vital Signs (Past 12 Hours) Vital Signs Temp Pulse Resp BP Pulse Ox O2 Del Method 01/27/22 06:46 36.5 C 56 L 14 139/71 97 Room Air
[2022-01-27] MEDS: OLANZapine 5 MG TABLET PO SCH (19:57)
[2022-01-28] MEDS: LEVOTHYROXINE SODIUM 88 MCG TABLET PO SCH ×2 (06:25→08:29)
[2022-01-28] MEDS: DONEPEZIL HCL 5 MG TAB PO SCH (08:28)
[2022-01-28] MEDS: ASPIRIN 81 MG ECTAB PO SCH (08:28)
[2022-01-28] MEDS: amLODIPine BESYLATE 5 MG TAB PO SCH (08:29)
[2022-01-28] MEDS: OLANZAPINE 2.5 MG TAB PO SCH (10:09)
--- NOTE | 2022-01-28 13:19 | Hospitalist Progress Note ---
Date of Service January 28, 2022 Assessment & Plan (1) Dementia with behavioral disturbance: Plan: Patient presenting with increased agitation. Recently admitted to [facility] 12/20 through 01/03 for similar. Patient discharged on Seroquel and as needed olanzapine. Patient was accepted to [facility] during previous admission however son elected to take the patient home to be her primary caregiver. Son dropped the patient off at the ED on 01/16 and did not come in to the hospital. Psych recs noted Meds have been adjusted within the past few days due to agitation Continue zyprexa 5mg HS Psych added zyprexa 2.5mg QAM today Continue to redirect as needed CM working on group home placement (2) Hypothyroidism: Plan: According to patient's pharmacy, she is prescribed levothyroxine 88 mcg daily however this has not been picked up since November for a 30-day supply TSH wnl, continue prior dose. Recheck TFT in 6 weeks. (3) Hypertension: Plan: BP is controlled Continue amlodipine 5mg daily (4) DVT prophylaxis: Plan: SCDs for now due to increased fall risk and agitation. Encourage ambulation w/ assistance. Plan Dispo: medically stable, can go to memory care placement Admission and Anticipated Discharge Date Admission Date: January 16, 2022 Subjective Patient seen and examined She is alert and oriented to person only Denied any complaints Poor insight Cooperative Physical Exam Constitutional: + well hydrated; no acute distress Eyes: PERRL, conjunctivae normal, anicteric sclerae ENMT: external ear and nose normal, oropharynx normal Respiratory: normal respiratory effort, lungs clear to auscultation Cardiovascular: Rate/Rhythm: regular rate and regular rhythm Gastrointestinal (Abdomen): normal bowel sounds, soft, nontender, no hepatosplenomegaly Musculoskeletal: No pedal edema Neurologic: PERRL, EOMI, accommodation nl, no face palsy, no dysarthria Psychiatric: Orientation: alert, oriented to person and cooperative; + not oriented to place and + not oriented to time Results & Data Results & Data ([facility]) Vital Signs (Past 12 Hours) Vital Signs Temp Pulse Resp BP Pulse Ox O2 Del Method 01/28/22 05:31 36.6 C 66 18 123/71 97 Room Air
--- NOTE | 2022-01-28 14:42 | 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 Note ---
Date of Service: January 28, 2022 Interim progress reviewed. Less agitated in past 24 hr, trend in IM Zyprexa is often mid/late morning. Will add am dose of Zyprexa 2.5 mg to hospitalist order of 5 mg hs. Will follow.
[2022-01-28] MEDS: ACETAMINOPHEN 325 MG TAB PO PRN (17:06)
[2022-01-28] MEDS: OLANZapine 5 MG TABLET PO SCH (21:41)
[2022-01-29] MEDS: DONEPEZIL HCL 5 MG TAB PO SCH (08:00)
[2022-01-29] MEDS: amLODIPine BESYLATE 5 MG TAB PO SCH (08:01)
[2022-01-29] MEDS: OLANZAPINE 2.5 MG TAB PO SCH (08:01)
[2022-01-29] MEDS: LEVOTHYROXINE SODIUM 88 MCG TABLET PO SCH (08:01)
[2022-01-29] MEDS: ASPIRIN 81 MG ECTAB PO SCH (08:01)
[2022-01-29] MEDS: ACETAMINOPHEN 325 MG TAB PO PRN (08:57)
--- NOTE | 2022-01-29 10:50 | Hospitalist Progress Note ---
Date of Service January 29, 2022 Assessment & Plan (1) Dementia with behavioral disturbance: Plan: Patient presenting with increased agitation. Recently admitted to [facility] 12/20 through 01/03 for similar. Patient discharged on Seroquel and as needed olanzapine. Patient was accepted to [facility] during previous admission however son elected to take the patient home to be her primary caregiver. Son dropped the patient off at the ED on 01/16 and did not come in to the hospital. Psych recs noted Meds have been adjusted within the past few days due to agitation Continue zyprexa 5mg HS and zyprexa 2.5mg QAM Continue to redirect as needed Loratadine started CM working on adjunct faculty for medical terminology placement (2) Hypothyroidism: Plan: According to patient's pharmacy, she is prescribed levothyroxine 88 mcg daily however this has not been picked up since November for a 30-day supply TSH wnl, continue prior dose. Recheck TFT in 6 weeks. (3) Hypertension: Plan: BP is controlled Continue amlodipine 5mg daily (4) DVT prophylaxis: Plan: SCDs for now due to increased fall risk and agitation. Encourage ambulation w/ assistance. Plan Dispo: medically stable, can go to memory care placement Admission and Anticipated Discharge Date Admission Date: January 16, 2022 Subjective Patient seen and examined She is alert and oriented to person only Reports nasal congestion and some rhinorrhea today Denied any cough, shortness of breath, fever Denied chest pain Denied nausea,vomiting, abd pain, diarrhea Physical Exam Constitutional: + well hydrated; no acute distress Eyes: PERRL, conjunctivae normal, anicteric sclerae ENMT: external ear and nose normal, oropharynx normal Respiratory: normal respiratory effort, lungs clear to auscultation Cardiovascular: Rate/Rhythm: regular rate and regular rhythm S1 S2 Gastrointestinal (Abdomen): normal bowel sounds, soft, nontender, no hepatosplenomegaly Musculoskeletal: no cyanosis or clubbing, extremities motor strength 5/5 Neurologic: PERRL, EOMI, accommodation nl, no face palsy, no dysarthria Psychiatric: Orientation: alert, oriented to person and cooperative; + not oriented to place and + not oriented to time Results & Data Results & Data ([facility]) Vital Signs (Past 12 Hours) Vital Signs Temp Pulse Pulse Resp BP Pulse Ox O2 Del Method 01/29/22 08:02 36 C L 66 16 133/81 94 Room Air 01/28/22 23:57 36.5 C 72 18 145/80 H 96 Room Air
[2022-01-29] MEDS: LORATADINE 10 MG TAB PO SCH (11:58)
[2022-01-29] MEDS: OLANZapine 5 MG TABLET PO SCH (20:43)
[2022-01-30] MEDS: LEVOTHYROXINE SODIUM 88 MCG TABLET PO SCH (06:31)
[2022-01-30] MEDS: ACETAMINOPHEN 325 MG TAB PO PRN ×3 (08:11→20:05)
[2022-01-30] MEDS: amLODIPine BESYLATE 5 MG TAB PO SCH (08:11)
[2022-01-30] MEDS: ASPIRIN 81 MG ECTAB PO SCH (08:11)
[2022-01-30] MEDS: DONEPEZIL HCL 5 MG TAB PO SCH (08:11)
[2022-01-30] MEDS: LORATADINE 10 MG TAB PO SCH (08:11)
[2022-01-30] MEDS: OLANZAPINE 2.5 MG TAB PO SCH (08:11)
--- NOTE | 2022-01-30 11:12 | Hospitalist Progress Note ---
Date of Service January 30, 2022 Assessment & Plan (1) Dementia with behavioral disturbance: Plan: Patient presenting with increased agitation. Recently admitted to [facility] 12/20 through 01/03 for similar. Patient discharged on Seroquel and as needed olanzapine. Patient was accepted to [facility] during previous admission however son elected to take the patient home to be her primary caregiver. Son dropped the patient off at the ED on 01/16 and did not come in to the hospital. Psych recs noted Meds have been adjusted within the past few days due to agitation Continue zyprexa 5mg HS and zyprexa 2.5mg QAM Continue to redirect as needed CM working on terminal supervisor placement (2) Hypothyroidism: Plan: According to patient's pharmacy, she is prescribed levothyroxine 88 mcg daily however this has not been picked up since November for a 30-day supply TSH wnl, continue prior dose. Recheck TFT in 6 weeks. (3) Hypertension: Plan: BP is controlled Continue amlodipine 5mg daily (4) DVT prophylaxis: Plan: SCDs for now due to increased fall risk and agitation. Encourage ambulation w/ assistance. Plan Dispo: medically stable, can go to memory care placement Admission and Anticipated Discharge Date Admission Date: January 16, 2022 Subjective Patient seen and examined She is alert and oriented to person only Denied any complaints today Denied any cough, shortness of breath, fever Denied chest pain Denied nausea,vomiting, abd pain, diarrhea Physical Exam Constitutional: + well hydrated; no acute distress Eyes: PERRL, conjunctivae normal, anicteric sclerae ENMT: external ear and nose normal, oropharynx normal Respiratory: normal respiratory effort, lungs clear to auscultation Cardiovascular: Rate/Rhythm: regular rate and regular rhythm S1 S2 Gastrointestinal (Abdomen): normal bowel sounds, soft, nontender, no hepatosplenomegaly Musculoskeletal: no cyanosis or clubbing, extremities motor strength 5/5 Neurologic: PERRL, EOMI, accommodation nl, no face palsy, no dysarthria Psychiatric: Orientation: alert, oriented to person and cooperative; + not oriented to place and + not oriented to time Results & Data Results & Data ([facility]) Vital Signs (Past 12 Hours) Vital Signs Temp Pulse Resp BP Pulse Ox O2 Del Method 01/30/22 07:06 36.7 C 57 L 16 125/66 96 Room Air
[2022-01-30] MEDS: OLANZapine 5 MG TABLET PO SCH (20:06)
[2022-01-31] MEDS: LEVOTHYROXINE SODIUM 88 MCG TABLET PO SCH (05:14)
[2022-01-31] MEDS: ASPIRIN 81 MG ECTAB PO SCH (08:07)
[2022-01-31] MEDS: OLANZAPINE 2.5 MG TAB PO SCH (08:07)
[2022-01-31] MEDS: amLODIPine BESYLATE 5 MG TAB PO SCH (08:07)
[2022-01-31] MEDS: DONEPEZIL HCL 5 MG TAB PO SCH (08:07)
[2022-01-31] MEDS: LORATADINE 10 MG TAB PO SCH (08:07)
[2022-01-31] MEDS: ACETAMINOPHEN 325 MG TAB PO PRN (11:01)
--- NOTE | 2022-01-31 11:53 | Hospitalist Progress Note ---
Date of Service January 31, 2022 Assessment & Plan (1) Dementia with behavioral disturbance: Plan: Patient presenting with increased agitation. Recently admitted to [facility] 12/20 through 01/03 for similar. Patient discharged on Seroquel and as needed olanzapine. Patient was accepted to [facility] during previous admission however son elected to take the patient home to be her primary caregiver. Son dropped the patient off at the ED on 01/16 and did not come in to the hospital. Psych recs noted Meds have been adjusted during this admission due to agitation Continue zyprexa 5mg HS and zyprexa 2.5mg QAM Continue to redirect as needed CM working on ocean transportation intermediary placement (2) Hypothyroidism: Plan: According to patient's pharmacy, she is prescribed levothyroxine 88 mcg daily however this has not been picked up since November for a 30-day supply TSH wnl, continue prior dose. Recheck TFT in 6 weeks. (3) Hypertension: Plan: BP is controlled Continue amlodipine 5mg daily (4) DVT prophylaxis: Plan: SCDs for now due to increased fall risk and agitation. Encourage ambulation w/ assistance. Plan Dispo: medically stable, can go to memory care placement Awaiting placement Admission and Anticipated Discharge Date Admission Date: January 16, 2022 Subjective Patient seen and examined She is alert and oriented to person only Reports mild headache today. Denied any cough, shortness of breath, fever Denied chest pain Denied nausea,vomiting, abd pain, diarrhea Physical Exam Constitutional: + well hydrated; no acute distress Eyes: PERRL, conjunctivae normal, anicteric sclerae ENMT: external ear and nose normal, oropharynx normal Respiratory: normal respiratory effort, lungs clear to auscultation Cardiovascular: Rate/Rhythm: regular rate and regular rhythm S1 S2 Gastrointestinal (Abdomen): normal bowel sounds, soft, nontender, no hepatosplenomegaly Musculoskeletal: no cyanosis or clubbing, extremities motor strength 5/5 Neurologic: PERRL, EOMI, accommodation nl, no face palsy, no dysarthria Psychiatric: Orientation: alert, oriented to person and cooperative; + not oriented to place and + not oriented to time Results & Data Results & Data ([facility]) Vital Signs (Past 12 Hours) Vital Signs Temp Pulse Resp BP Pulse Ox O2 Del Method 01/31/22 07:49 36.4 C L 63 16 136/75 97 Room Air
[2022-01-31] MEDS: OLANZapine 5 MG TABLET PO SCH (20:51)
[2022-02-01] MEDS: LEVOTHYROXINE SODIUM 88 MCG TABLET PO SCH (06:27)
[2022-02-01] MEDS: ACETAMINOPHEN 325 MG TAB PO PRN ×2 (08:56→16:13)
[2022-02-01] MEDS: DONEPEZIL HCL 5 MG TAB PO SCH (08:57)
[2022-02-01] MEDS: ASPIRIN 81 MG ECTAB PO SCH (08:57)
[2022-02-01] MEDS: amLODIPine BESYLATE 5 MG TAB PO SCH (08:57)
[2022-02-01] MEDS: OLANZAPINE 2.5 MG TAB PO SCH (08:58)
[2022-02-01] MEDS: LORATADINE 10 MG TAB PO SCH (08:58)
--- NOTE | 2022-02-01 17:15 | Hospitalist Progress Note ---
Date of Service February 01, 2022 Assessment & Plan (1) Dementia with behavioral disturbance: Plan: As per prior hospitalist Patient presenting with increased agitation. Recently admitted to [facility] 12/20 through 01/03 for similar. Patient discharged on Seroquel and as needed olanzapine. Patient was accepted to [facility] during previous admission however son elected to take the patient home to be her primary caregiver. Son dropped the patient off at the ED on 01/16 and did not come in to the hospital. Dementia with behavioral disturbance Appreciate psychiatry input Medications were adjusted due to agitation Continue zyprexa 5mg HS and zyprexa 2.5mg QAM No agitation currently Continue Aricept Waiting for placement (2) Hypothyroidism: Plan: According to patient's pharmacy, she is prescribed levothyroxine 88 mcg daily however this has not been picked up since November for a 30-day supply TSH wnl Continue levothyroxine Recheck TFT in 6 weeks. (3) Hypertension: Plan: Continue amlodipine (4) DVT prophylaxis: Plan: SCDs for now due to increased fall risk and agitation. Encourage ambulation w/ assistance. CODE STATUS Full code Plan Disposition: Awaiting placement Admission and Anticipated Discharge Date Admission Date: January 16, 2022 Subjective Patient is seen and examined at bedside Poor historian due to cognitive issues Complaints to have mild feet pain Sitter at bedside Denies any chest pain, dyspnea, dizziness, nausea, abdominal pain Offers no other complaints Review of Systems Review of Systems: Unobtainable due to cognitive status Physical Exam Physical Exam: Physical Exam: Vitals signs as noted above General Appearance:Moderately built and nourished, no apparent distress Head: normocephalic, Atraumatic Eyes: normal inspection, EOMI Neck: supple, Trachea midline Respiratory/Chest: Normal breath sounds, CTA, No accessory muscle use Cardiovascular: S1, S2, No murmur Abdomen/GI:Soft, Non tender, Bowel sounds present Extremities/Musculoskeletal:normal inspection, no edema Neurologic/Psych:AAOX1, grossly no focal neurological deficits, confused Skin: normal color, warm Results & Data Results & Data ([facility]) Vital Signs (Past 12 Hours) Vital Signs Temp Pulse Pulse Resp BP Pulse Ox O2 Del Method 02/01/22 16:11 36.8 C 89 22 123/73 94 Room Air 02/01/22 08:50 36.6 C 83 18 146/80 H 96 Room Air
[2022-02-01] MEDS: OLANZapine 5 MG TABLET PO SCH (22:21)
[2022-02-02] MEDS: LEVOTHYROXINE SODIUM 88 MCG TABLET PO SCH (06:07)
[2022-02-02] MEDS: OLANZAPINE 2.5 MG TAB PO SCH (08:18)
[2022-02-02] MEDS: DONEPEZIL HCL 5 MG TAB PO SCH (08:19)
[2022-02-02] MEDS: amLODIPine BESYLATE 5 MG TAB PO SCH (08:19)
[2022-02-02] MEDS: ASPIRIN 81 MG ECTAB PO SCH (08:19)
[2022-02-02] MEDS: LORATADINE 10 MG TAB PO SCH (08:20)
--- NOTE | 2022-02-02 16:39 | Hospitalist Progress Note ---
Date of Service February 02, 2022 Assessment & Plan (1) Dementia with behavioral disturbance: Plan: As per prior hospitalist Patient presenting with increased agitation. Recently admitted to [facility] 12/20 through 01/03 for similar. Patient discharged on Seroquel and as needed olanzapine. Patient was accepted to [facility] during previous admission however son elected to take the patient home to be her primary caregiver. Son dropped the patient off at the ED on 01/16 and did not come in to the hospital. Dementia with behavioral disturbance Appreciate psychiatry input Medications were adjusted due to agitation Continue Zyprexa 5mg HS and Zyprexa 2.5mg QAM No agitation currently Continue Aricept Waiting for placement Requested psychiatry to reevaluate and is intermittently agitated per staff (2) Hypothyroidism: Plan: According to patient's pharmacy, she is prescribed levothyroxine 88 mcg daily however this has not been picked up since November for a 30-day supply TSH wnl Continue levothyroxine Recheck TFT in 6 weeks. (3) Hypertension: Plan: Continue amlodipine (4) DVT prophylaxis: Plan: SCDs for now due to increased fall risk and agitation. Encourage ambulation w/ assistance. CODE STATUS Full code Plan Disposition: Awaiting placement Admission and Anticipated Discharge Date Admission Date: January 16, 2022 Subjective Patient is seen and examined at bedside Denies any feet pain today Poor historian due to cognitive issues Pleasantly confused Denies any chest pain, dyspnea, dizziness, nausea, abdominal pain Discussed with Psychiatry today Review of Systems Review of Systems: Unobtainable due to cognitive status Physical Exam Physical Exam: Physical Exam: Vitals signs as noted above General Appearance:Moderately built and nourished, no apparent distress Head: normocephalic, Atraumatic Eyes: normal inspection, EOMI Neck: supple, Trachea midline Respiratory/Chest: Normal breath sounds, CTA, No accessory muscle use Cardiovascular: S1, S2, No murmur Abdomen/GI:Soft, Non tender, Bowel sounds present Extremities/Musculoskeletal:normal inspection, no edema Neurologic/Psych:AAOX1, grossly no focal neurological deficits, confused Skin: normal color, warm Results & Data Results & Data ([facility]) Vital Signs (Past 12 Hours) Vital Signs Temp Pulse Resp BP BP Pulse Ox O2 Del Method 02/02/22 15:38 36.5 C 74 20 138/80 96 Room Air 02/02/22 11:50 36.9 C 63 19 116/71 97 Room Air 02/02/22 07:31 36.5 C 65 18 127/73 95 Room Air
[2022-02-02] MEDS: OLANZapine 5 MG TABLET PO SCH (21:59)
--- NOTE | 2022-02-03 11:38 | Psychiatric Progress Note ---
Date of Service February 03, 2022 Impression / Recommendations Impression 76 yo old admitted for dementia with worsening behavioral disturbance. Office of Aging involved as family dropped her off at ED and have not been involved since. Goal in dementia is to avoid medication management of behaviors if possible by maximizing non-pharmacologic strategies for behavioral management. However, given persistent agitation/aggression resulting in need for higher level of care agree with continuing seroquel and using olanzapine as needed as risk/benefit profile continues to favor treatment. Note all antipsychotic medications carry black box warning for increased risk of all-cause mortality in setting of dementia. 02/03/22: Agitation significantly improved but still irritable at times requiring frequent redirection. Increase zyprexa to 5mg BID. (1) Dementia with behavioral disturbance: Plan -Increase zyprexa to 5mg BID Interval History Identifying Information 76 yo woman with history of dementia admited medically for worsening agitation at home. Psychiatry consulted for medication recommendations for agitation. Chief Complaint "I'm here, I'm ok". Review of Systems Notes sleeping, eating Subjective Subjective Patient was seen & assessed and interval progress reviewed. Lying in bed watching TV. Calm but wonders if I am saying mean things about her but easily redirected. Last night required 1-on-1 as she was wanting to wander out of her room and confused so trying to go into other's rooms. Physical Exam Psychiatric Orientation: alert, oriented to person and cooperative; + not oriented to place and + not oriented to time Apperance: + disheveled Eye Contact: + fair eye contact Motor Behavior: no abnormal motor movements Speech: normal rate/rhythm/volume of speech Affect: + irritable affect Mood: + irritable mood Thought Process: + looseness of associations Thought Content: + paranoid Suicidal Thoughts: denies suicidal thoughts Homicidal Thoughts: denies homicidal thoughts Hallucinations: no auditory hallucinations and no visual hallucinations Cognition: language grossly intact; + recent memory not intact and + attention not intact Insight: + severely impaired insight Judgement: + severely impaired judgement Vital Signs (Past 24 Hours) Last Vital Signs Temp 36.5 C 02/02/22 15:38 Pulse 74 02/02/22 15:38 Resp 20 02/02/22 15:38 BP 138/80 02/02/22 15:38 Pulse Ox 96 02/02/22 15:38 O2 Del Method 02/02/22 15:38 Results & Data ([facility]) Current Inpatient Medications Current Inpatient Medications: Current Inpatient Medications Acetaminophen (Acetaminophen 325 Mg Tab) 650 mg PO Q4H PRN PRN Reason: pain/fever Stop: 02/15/22 20:49 Last Admin: 02/01/22 16:13 Dose: 650 mg Amlodipine Besylate (Amlodipine Besylate 5 Mg Tab) [facility] [place]: 02/20/22 08:59 Last Admin: 02/02/22 08:19 Dose: 5 mg Aspirin (Aspirin 81 Mg Ectab) 81 mg PO [facility] Stop: 02/16/22 08:59 Last Admin: 02/02/22 08:19 Dose: 81 mg Donepezil HCl (Donepezil Hcl 5 Mg Tab) 5 mg PO DAILY [facility] Stop: 02/16/22 08:59 Last Admin: 02/02/22 08:19 Dose: 5 mg Hydralazine HCl (Hydralazine Hcl 25 Mg Tab) 25 mg PO Q8H PRN PRN Reason: Hypertension Stop: 02/17/22 16:14 Last Admin: 01/18/22 17:31 Dose: 25 mg Levothyroxine Sodium (Levothyroxine Sodium 88 Mcg Tablet) [facility] Stop: 02/17/22 06:29 Last Admin: 02/02/22 06:07 Dose: 88 mcg Loratadine (Loratadine 10 Mg Tab) 10 [facility] [place]: 02/05/22 09:44 Last Admin: 02/02/22 08:20 Dose: 10 mg Olanzapine (Olanzapine 10 Mg/2.1 Ml Sdv) 2.5 mg IM BID PRN PRN Reason: Agitation Stop: 02/24/22 15:09 Last Admin: 01/27/22 11:44 Dose: 2.5 mg
[2022-02-03] MEDS: amLODIPine BESYLATE 5 MG TAB PO SCH (12:21)
[2022-02-03] MEDS: LEVOTHYROXINE SODIUM 88 MCG TABLET PO SCH (12:21)
[2022-02-03] MEDS: OLANZapine 5 MG TABLET PO SCH ×2 (12:21→20:16)
[2022-02-03] MEDS: ASPIRIN 81 MG ECTAB PO SCH (12:22)
[2022-02-03] MEDS: DONEPEZIL HCL 5 MG TAB PO SCH (12:22)
[2022-02-03] MEDS: LORATADINE 10 MG TAB PO SCH (12:22)
[2022-02-03] MEDS: ACETAMINOPHEN 325 MG TAB PO PRN (12:22)
--- NOTE | 2022-02-03 15:23 | Hospitalist Progress Note ---
Date of Service February 03, 2022 Assessment & Plan (1) Dementia with behavioral disturbance: Plan: Patient presenting with increased agitation. Recently admitted to [facility] 12/20 through 01/03 for similar. Patient discharged on Seroquel and as needed olanzapine. Patient was accepted to [facility] during previous admission however son elected to take the patient home to be her primary caregiver. Son dropped the patient off at the ED on 01/16 and did not come in to the hospital. Medications were adjusted due to agitation Appreciate psychiatry input - Zyprexa increased to 5mg BID on 02/03/22 Continue Zyprexa 5mg HS and Zyprexa 2.5mg QAM Continue Aricept Waiting for placement Not agitated during interview today. Pleasant and cooperative (2) Hypothyroidism: Plan: According to patient's pharmacy, she is prescribed levothyroxine 88 mcg daily however this has not been picked up since November for a 30-day supply TSH wnl Continue levothyroxine Recheck TFT in 6 weeks. (3) Hypertension: Plan: Continue amlodipine (4) DVT prophylaxis: Plan: SCDs for now due to increased fall risk and agitation. Encourage ambulation w/ assistance. CODE STATUS Full code Plan Disposition: Awaiting placement Admission and Anticipated Discharge Date Admission Date: January 16, 2022 Supervising Physician Co-Signing Physician Notes Patient is seen and examined at bedside. Poor historian due to cognitive issues. As stated intermittently as per staff. Discussed with psychiatry today. Physical Exam: Vitals signs as noted above General Appearance:Moderately built and nourished, no apparent distress Head: normocephalic, Atraumatic Eyes: normal inspection, EOMI Neck: supple, Trachea midline Respiratory/Chest: Normal breath sounds, CTA, No accessory muscle use Cardiovascular: S1, S2, No murmur Abdomen/GI:Soft, Non tender, Bowel sounds present Extremities/Musculoskeletal:normal inspection, no edema Neurologic/Psych:AAOX1, grossly no focal neurological deficits, confused Skin: normal color, warm Dementia with behavioral disturbance Zyprexa increased to 5 mg twice daily Appreciate Psychiatry input Needs placement I personally reviewed the record. Patient is interviewed and examined at bedside. Patient's care is coordinated with Priscilla Lemons PA-C. Please refer to the documentation above for details of patient's presentation and for discussion of other issues. Subjective Seen and examined in 304-1 with 1-to-1 present. Participates with questions and is A&O to person but not to place, time or situation. Feels comfortable and denies any pain in feet. Poor historian due to cognitive issues so ROS is limited but denies any CP abdominal pain or dizziness. Review of Systems Review of Systems: Unobtainable due to cognitive status See HPI for limited ROS. Remained unobtainable 2/2 cognitive status. Physical Exam Physical Exam: Gen: WD/WN, NAD, sitting in bedside chair, A&Ox person only, 1:1 present HEENT: Normocephalic, atraumatic, conjunctivae moist, sclerae anicteric, mucous membranes moist Lung: Clear to Auscultation bilaterally, no wheezes/rales/rhonchi Heart: Regular rate, regular rhythm, no murmurs, rubs, or gallops Abdomen: Soft, NT, ND +BS x 4 Extremities: no edema Skin: Warm, no rash
[2022-02-03] MEDS: OLANZAPINE 2.5 MG TAB PO SCH (18:29)
[2022-02-04] MEDS: LEVOTHYROXINE SODIUM 88 MCG TABLET PO SCH (06:01)
[2022-02-04] MEDS: DONEPEZIL HCL 5 MG TAB PO SCH (08:59)
[2022-02-04] MEDS: ASPIRIN 81 MG ECTAB PO SCH (08:59)
[2022-02-04] MEDS: amLODIPine BESYLATE 5 MG TAB PO SCH (08:59)
[2022-02-04] MEDS: LORATADINE 10 MG TAB PO SCH (08:59)
[2022-02-04] MEDS: OLANZapine 5 MG TABLET PO SCH ×2 (09:00→22:25)
[2022-02-04] MEDS: ACETAMINOPHEN 325 MG TAB PO PRN (14:24)
[2022-02-04] MEDS: DICLOFENAC SOD 1% GEL 100 GM TUBE EXT PRN (15:46)
--- NOTE | 2022-02-04 16:10 | Hospitalist Progress Note ---
Date of Service February 04, 2022 Assessment & Plan (1) Dementia with behavioral disturbance: Plan: Patient presenting with increased agitation. Recently admitted to [facility] 12/20 through 01/03 for similar. Patient discharged on Seroquel and as needed olanzapine. Patient was accepted to [facility] during previous admission however son elected to take the patient home to be her primary caregiver. Son dropped the patient off at the ED on 01/16 and did not come in to the hospital. Medications were adjusted due to agitation Appreciate psychiatry input - Zyprexa increased to 5mg BID on 02/03/22 Continue Zyprexa 5mg HS and Zyprexa 2.5mg QAM Continue Aricept Intermittently agitated today Waiting for placement (2) Hypothyroidism: Plan: According to patient's pharmacy, she is prescribed levothyroxine 88 mcg daily however this has not been picked up since November for a 30-day supply TSH wnl Continue levothyroxine Recheck TFT in 6 weeks. (3) Hypertension: Plan: Continue amlodipine (4) DVT prophylaxis: Plan: SCDs for now due to increased fall risk and agitation. Encourage ambulation w/ assistance. CODE STATUS Full code Plan Disposition: Awaiting placement Admission and Anticipated Discharge Date Admission Date: January 16, 2022 Subjective Patient is seen and examined at bedside Poor historian due to cognitive issues Intermittently agitated Reports feet pain to RN States feeling tired during my encounter No other complaints Denies any chest pain, dyspnea, dizziness, nausea, abdominal pain Review of Systems Review of Systems: Unobtainable due to cognitive status Physical Exam Physical Exam: Physical Exam: Vitals signs as noted above General Appearance:Moderately built and nourished, no apparent distress Head: normocephalic, Atraumatic Eyes: normal inspection, EOMI Neck: supple, Trachea midline Respiratory/Chest: Normal breath sounds, CTA, No accessory muscle use Cardiovascular: S1, S2, No murmur Abdomen/GI:Soft, Non tender, Bowel sounds present Extremities/Musculoskeletal:normal inspection, no edema Neurologic/Psych:AAOX1, grossly no focal neurological deficits, confused Skin: normal color, warm Results & Data Results & Data ([facility]) Vital Signs (Past 12 Hours) Vital Signs Temp Pulse Resp BP Pulse Ox O2 Del Method 02/04/22 09:02 36.6 C 63 14 105/69 98 Room Air
[2022-02-04] MEDS ORDERED: OLANZAPINE 2.5 MG TAB PO ONE (16:20)
[2022-02-05] MEDS: LORATADINE 10 MG TAB PO SCH (07:53)
[2022-02-05] MEDS: DONEPEZIL HCL 5 MG TAB PO SCH (07:53)
[2022-02-05] MEDS: ASPIRIN 81 MG ECTAB PO SCH (07:53)
[2022-02-05] MEDS: OLANZapine 5 MG TABLET PO SCH ×2 (07:53→21:49)
[2022-02-05] MEDS: amLODIPine BESYLATE 5 MG TAB PO SCH (07:53)
[2022-02-05] MEDS: LEVOTHYROXINE SODIUM 88 MCG TABLET PO SCH (09:27)
[2022-02-05] MEDS: ACETAMINOPHEN 325 MG TAB PO PRN (10:57)
--- NOTE | 2022-02-05 15:01 | Hospitalist Progress Note ---
Date of Service February 05, 2022 Assessment & Plan (1) Dementia with behavioral disturbance: Plan: Patient presenting with increased agitation. Recently admitted to [facility] 12/20 through 01/03 for similar. Patient discharged on Seroquel and as needed olanzapine. Patient was accepted to [facility] during previous admission however son elected to take the patient home to be her primary caregiver. Son dropped the patient off at the ED on 01/16 and did not come in to the hospital. Medications were adjusted due to agitation Appreciate psychiatry input - Zyprexa increased to 5mg BID on 02/03/22 Continue Zyprexa 5mg HS and Zyprexa 2.5mg QAM Continue Aricept Intermittently agitated today Waiting for placement Continue current management (2) Hypothyroidism: Plan: According to patient's pharmacy, she is prescribed levothyroxine 88 mcg daily however this has not been picked up since November for a 30-day supply TSH wnl Continue levothyroxine Recheck TFT in 6 weeks. (3) Hypertension: Plan: Continue amlodipine (4) DVT prophylaxis: Plan: SCDs for now due to increased fall risk and agitation. Encourage ambulation w/ assistance. CODE STATUS Full code Plan Disposition: Awaiting placement Admission and Anticipated Discharge Date Admission Date: January 16, 2022 Subjective Patient is seen and examined at bedside Poor historian due to cognitive issues No complaints Denies any chest pain, dyspnea, dizziness, nausea, abdominal pain Pleasantly confused Review of Systems Review of Systems: Unobtainable due to cognitive status Physical Exam Physical Exam: Physical Exam: Vitals signs as noted above General Appearance:Moderately built and nourished, no apparent distress Head: normocephalic, Atraumatic Eyes: normal inspection, EOMI Neck: supple, Trachea midline Respiratory/Chest: Normal breath sounds, CTA, No accessory muscle use Cardiovascular: S1, S2, No murmur Abdomen/GI:Soft, Non tender, Bowel sounds present Extremities/Musculoskeletal:normal inspection, no edema Neurologic/Psych:AAOX1, grossly no focal neurological deficits, confused Skin: normal color, warm Results & Data Results & Data ([facility]) Vital Signs (Past 12 Hours) Vital Signs Temp Pulse Resp BP Pulse Ox O2 Del Method 02/05/22 07:53 36.5 C 67 18 147/78 H 98 Room Air
[2022-02-06] MEDS: LEVOTHYROXINE SODIUM 88 MCG TABLET PO SCH (05:39)
[2022-02-06] MEDS: ASPIRIN 81 MG ECTAB PO SCH (09:28)
[2022-02-06] MEDS: amLODIPine BESYLATE 5 MG TAB PO SCH (09:28)
[2022-02-06] MEDS: DONEPEZIL HCL 5 MG TAB PO SCH (09:28)
[2022-02-06] MEDS: OLANZapine 5 MG TABLET PO SCH (09:29)
[2022-02-06] MEDS: ACETAMINOPHEN 325 MG TAB PO PRN (09:31)
[2022-02-06] MEDS: DICLOFENAC SOD 1% GEL 100 GM TUBE EXT PRN (11:45)
--- NOTE | 2022-02-06 12:11 | Hospitalist Progress Note ---
Date of Service February 06, 2022 Assessment & Plan (1) Dementia with behavioral disturbance: Plan: Patient presenting with increased agitation. Recently admitted to [facility] 12/20 through 01/03 for similar. Patient discharged on Seroquel and as needed olanzapine. Patient was accepted to [facility] during previous admission however son elected to take the patient home to be her primary caregiver. Son dropped the patient off at the ED on 01/16 and did not come in to the hospital. Medications were adjusted due to agitation Appreciate psychiatry input - Zyprexa increased to 5mg BID on 02/03/22 Continue Zyprexa 5mg HS and Zyprexa 2.5mg QAM Continue Aricept Plan to be discharged to [facility] today (2) Hypothyroidism: Plan: According to patient's pharmacy, she is prescribed levothyroxine 88 mcg daily however this has not been picked up since November for a 30-day supply TSH wnl Continue levothyroxine Recheck TFT in 6 weeks. (3) Hypertension: Plan: Continue amlodipine (4) DVT prophylaxis: Plan: SCDs for now due to increased fall risk and agitation. Encourage ambulation w/ assistance. CODE STATUS Full code Plan Disposition: [facility] Admission and Anticipated Discharge Date Admission Date: January 16, 2022 Subjective Patient is seen and examined at bedside Poor historian due to cognitive issues Pleasantly confused Cooperative No new issues Denies any chest pain, dyspnea, dizziness, nausea, abdominal pain Plan to be discharged to [facility] today Review of Systems Review of Systems: All systems reviewed & are unremarkable except as noted in Subjective Physical Exam Physical Exam: Physical Exam: Vitals signs as noted above General Appearance:Moderately built and nourished, no apparent distress Head: normocephalic, Atraumatic Eyes: normal inspection, EOMI Neck: supple, Trachea midline Respiratory/Chest: Normal breath sounds, CTA, No accessory muscle use Cardiovascular: S1, S2, No murmur Abdomen/GI:Soft, Non tender, Bowel sounds present Extremities/Musculoskeletal:normal inspection, no edema Neurologic/Psych:AAOX1, grossly no focal neurological deficits, confused Skin: normal color, warm Results & Data Results & Data ([facility]) Vital Signs (Past 12 Hours) Vital Signs Temp Pulse Resp BP Pulse Ox O2 Del Method 02/06/22 07:51 36.4 C L 59 L 16 118/74 96 Room Air 02/06/22 07:36 Room Air
--- NOTE | 2022-02-06 12:22 | Discharge Summary ---
Date of Service February 06, 2022 Admission HPI Per Admitting Provider 76-year-old female with PMH dementia, hypothyroidism, hyperlipidemia, and other problems to below who presents to the ED for agitation. Patient's son dropped her off at the ED and did not stay with her. History is very limited from the patient currently due to severe agitation. Patient recently admitted to [facility] 12/20 through 01/03 for agitation due to dementia. Patient was discharged on Seroquel and as needed olanzapine. I did confirm with patient's pharmacy that these 2 prescriptions were picked up however cannot confirm with patient has been taking medications as prescribed. I also attempted to call patient's son however there was a busy signal. Due to patient's agitation, labs and imaging have not been completed. During exam, patient is ambulating in the room independently however severely agitated and yelling. Patient received IM Haldol and IM lorazepam in the ED. Principal Diagnosis Dementia with behavioral disturbance Hypothyroidism Hypertension Discharge Data Allergies Allergy/AdvReac Type Severity Reaction Status Date / Time No Known Allergies Allergy Verified 12/07/21 19:54 Consultations 01/16/22 14:06 ED Decision to Admit Stat 01/16/22 20:50 Consult Mental Health [Consult Psychiatry] Routine Ordered Studies Laboratory Results WBC 5.65 K/ul (4.8-10.8) 01/17/22 09:00 RBC 4.01 M/uL (3.93-5.22) 01/17/22 09:00 Hgb 11.5 g/dl (12.0-16.0) L 01/17/22 09:00 Hct 35.6 % (34.1-44.9) 01/17/22 09:00 MCV 88.8 fL (80.0-100.0) 01/17/22 09:00 MCH 28.7 pg (25.0-34.0) 01/17/22 09:00 MCHC 32.3 g/dL (32.0-36.0) 01/17/22 09:00 RDW Std Deviation 48.5 fL (36.4-46.3) H 01/17/22 09:00 RDW Coeff of [place] 14.8 % (11.5-14.5) H 01/17/22 09:00 Plt Count 399 K/uL (130-400) 01/17/22 09:00 MPV 8.5 fL (9.4-12.3) L 01/17/22 09:00 Immature Gran % (Auto) 0.3 % 01/16/22 17:45 Neut % (Auto) 63.4 % 01/16/22 17:45 Lymph % (Auto) 25.6 % 01/16/22 17:45 [place] % (Auto) 8.7 % 01/16/22 17:45 Eos % (Auto) 1.5 % 01/16/22 17:45 Baso % (Auto) 0.5 % 01/16/22 17:45 Neut # (Auto) 4.68 K/uL (1.4-6.5) 01/16/22 17:45 Lymph # (Auto) 1.89 K/uL (1.2-3.4) 01/16/22 17:45 [place] # (Auto) 0.64 K/uL (0.24-0.82) 01/16/22 17:45 Eos # (Auto) 0.11 K/uL (0-0.50) 01/16/22 17:45 Baso # (Auto) 0.04 K/uL (0-0.2) 01/16/22 17:45 Immature Gran # (Auto) 0.02 K/uL (0.00-0.02) 01/16/22 17:45 PT 10.5 Seconds (9.0-12.0) 01/16/22 17:45 INR 1.0 (0.9-1.1) 01/16/22 17:45 APTT 25.7 Seconds (21.0-31.0) 01/16/22 17:45 PTT Ratio 0.9 01/16/22 17:45 Sodium 139 mmol/L (136-145) 01/27/22 05:38 Potassium 4.1 mmol/L (3.5-5.1) 01/27/22 05:38 Chloride 108 mmol/L (98-107) H 01/27/22 05:38 Carbon Dioxide 28 mmol/L (21-32) 01/27/22 05:38 Anion Gap 3 (3-11) 01/27/22 05:38 BUN 14 mg/dl (6-23) 01/27/22 05:38 Creatinine 0.63 mg/dl (0.6-1.2) 01/27/22 05:38 Est Cr Clr Drug Dosing 78.7 ml/min 01/27/22 05:38 Est GFR ( Amer) 101.0 ml/min 01/27/22 05:38 Est GFR (Non-Af Amer) 87.1 ml/min 01/27/22 05:38 BUN/Creatinine Ratio 22.2 (10-20) H 01/27/22 05:38 Glucose 90 mg/dl (70-99(Fasting)) 01/27/22 05:38 Calcium 8.1 mg/dl (8.5-10.1) L 01/27/22 05:38 Magnesium 2.0 mg/dl (1.7-2.4) 01/18/22 06:42 Total Bilirubin 0.4 mg/dl (0.2-1.0) 01/16/22 17:45 AST 20 U/L (13-39) 01/16/22 17:45 ALT 18 U/L (7-52) 01/16/22 17:45 Alkaline Phosphatase 100 U/L (34-104) 01/16/22 17:45 Total Creatine Kinase 61 U/L (26-192) 01/16/22 17:45 Troponin I High Sens 7.2 pg/ml (0-14) 01/16/22 17:45 Total Protein 6.5 gm/dl (6.0-8.3) 01/16/22 17:45 Albumin 3.7 gm/dl (3.4-5.0) 01/16/22 17:45 Globulin 2.8 gm/dl (2.5-4.0) 01/16/22 17:45 Albumin/Globulin Ratio 1.3 (0.9-2) 01/16/22 17:45 TSH 1.652 uIu/ml (0.300-4.500) 01/16/22 17:45 Urine Color Yellow 01/17/22 17:05 Urine Appearance Clear (Clear) 01/17/22 17:05 Urine pH 6.5 (4.5-7.5) 01/17/22 17:05 Ur Specific [place] 1.006 (1.000-1.030) 01/17/22 17:05 Urine Protein Negative (Negative) 01/17/22 17:05 Urine Glucose (UA) Negative (Negative) 01/17/22 17:05 Urine Ketones Negative (Negative) 01/17/22 17:05 Urine Blood Negative (Negative) 01/17/22 17:05 Urine Nitrite Negative (Negative) 01/17/22 17:05 Urine Bilirubin Negative (Negative) 01/17/22 17:05 Urine Urobilinogen Negative (Negative) 01/17/22 17:05 Ur Leukocyte Esterase Trace (Negative) H 01/17/22 17:05 Urine WBC (Auto) 1-5 /hpf (0-5) 01/17/22 17:05 Urine RBC (Auto) 0-4 /hpf (0-4) 01/17/22 17:05 U Hyaline Cast (Auto) 0 /lpf (0-5) 01/17/22 17:05 U Epithel Cells (Auto) 10-20 /lpf (0-5) H 01/17/22 17:05 Urine Bacteria (Auto) Negative (Negative) 01/17/22 17:05 SARS-CoV-2, RNA, NAAT NEGATIVE (NEGATIVE) 01/16/22 Unknown Impressions Chest X-Ray 01/16/22 14:04 XR chest 1V portable CLINICAL HISTORY: weakness TECHNIQUE: Single frontal radiograph of the chest was obtained. Comparison: Comparison is made to chest radiograph 12/25/2021 FINDINGS: No lines and tubes are seen. Calcified aortic knob is seen. The lungs are clear. No evidence of pleural effusion or pneumothorax. IMPRESSION: No acute chest disease. ACT 112: Negative or not required by law. Electronically signed by: Enrique Herrera M.D. 01/16/2022 3:51 PM Hospital Course (1) Dementia with behavioral disturbance: Patient presenting with increased agitation. Recently admitted to [facility] 12/20 through 01/03 for similar. Patient discharged on Seroquel and as needed olanzapine. Patient was accepted to [facility] during previous admission however son elected to take the patient home to be her primary caregiver. Son dropped the patient off at the ED on 01/16 and did not come in to the hospital. Medications were adjusted due to agitation Appreciate psychiatry input - Zyprexa increased to 5mg BID on 02/03/22 Continue Zyprexa 5mg HS and Zyprexa 2.5mg QAM Continue Aricept Plan to be discharged to [facility] today (2) Hypothyroidism: According to patient's pharmacy, she is prescribed levothyroxine 88 mcg daily however this has not been picked up since November for a 30-day supply TSH wnl Continue levothyroxine Recheck TFT in 6 weeks. (3) Hypertension: Continue amlodipine (4) DVT prophylaxis: SCDs for now due to increased fall risk and agitation. Encourage ambulation w/ assistance. CODE STATUS Full code Plan Disposition: [facility] Total Time Total Time Spent Total Time Spent (In Minutes): 54 minutes Discharge Plan Discharge Items Patient Disposition: Transfer Nursing Home Fac Reason For Visit: AGITATION, DEMENTIA Discharge Diagnosis: Dementia with behavioral disturbance Hypothyroidism Hypertension Activity: Per Instructions section Exercise/Sports: Gradually increase as tolerated Non-emergency contact: Primary Care Provider and Psychiatrist Call non-emergency contact if: you have any medication questions, your symptoms worsen, your pain is concerning for you and you have a fever Follow-up/Referrals: Gaurav Savage MD [Primary Care Provider] - Diet: Regular Diet Texture: Easy to Chew Addtl Attending Provider Instructions: Follow-up with your primary care physician in 1 week Follow-up with your psychiatrist as needed --Recheck thyroid function test in 6 weeks. Follow-up with your physician for further adjustment of your levothyroxine dose. Seek immediate medical attention if your symptoms reoccur or worsen Please take all medications as instructed on discharge list below. Please call if you have any questions or problems. You can reach a [facility] hospitalist on duty at [facility] 24 hours a day by calling [phone] Pending Studies at Discharge: No Stand-Alone Forms: My [facility] Skilled Items Patient informed of condition?: Yes DNR: No Discharge Level of Care: Skilled Communicable Disease: No Discharge Prognosis: Stable Lines: None Urinary Catheter: No Medications and DC Order Prescriptions: New olanzapine 5 mg Tablet 5 mg PO BID Qty: 60 0RF amlodipine [Norvasc] 5 mg Tablet 5 mg PO QAM Qty: 30 1RF Continued aspirin 81 mg tablet,delayed release (DR/EC) 81 mg PO QAM levothyroxine 88 mcg tablet 88 mcg PO DAILY donepezil 5 mg Tablet 5 mg PO DAILY Discontinued quetiapine [Seroquel] 25 mg tablet See Rx Instructions .ROUTE .COMPLEX Qty: 90 0RF Rx Instructions: 25 mg orally in morning 50mg orally at night olanzapine 2.5 mg tablet 2.5 mg PO DAILY PRN (Reason: agitation) Qty: 20 0RF Discharge Orders: Discharge Order (Routine); Ordered 02/06/22 Ordered By: Kenneth Rodney Admission Data Admit Date/Time: 01/16/22 14:54 Attending Provider: Kenneth Rodney Admit Provider: Darleen Good Primary Care Provider: Gaurav Savage Other Providers: Darleen Good ; Natacha Simental ; Bailey Frank ; Krystina Whitehead ; [facility] ; James Hanson ; Priscilla Lemons
== END 2022-02-06 13:04 | DRG 884 ==
LOC: ED 12:46 → 3E 14:54 → SUATTDRO 14:54 → 3E 20:33

== ENCOUNTER 2022-02-26 01:04 | Inpatient (IN) ==
--- NOTE | 2022-02-26 01:19 | Emergency Department Note ---
History of Present Illness General Chief complaint: Shortness of Breath/Dyspnea Stated complaint: BREATHING DIFFICULTY/CHANGE IN MENTAL STATUS Time Seen by Provider: 02/26/22 01:10 History of Present Illness 77-year-old female presents from long term reportedly has a history of dementia and may be COVID-positive has had general decline over the past 3 days according to the long term staff. EMS states that the patient was in mild respiratory distress and was started on a nonrebreather. Pulse oximetry was in the 70s. Patient is demented does not provide any further history. Of note patient did have lab work recently had an elevated white blood cell count and elevated D-dimer. There are no other available historical notes available to me at this time Home Medications Medication Instructions Recorded Confirmed Type acetaminophen 325 mg tablet 650 mg PO Q6 PRN fever/pain 02/26/22 02/26/22 History (Tylenol) amlodipine 5 mg tablet (Norvasc) 5 mg PO DAILY 02/26/22 02/26/22 History ascorbic acid (vitamin C) 500 mg 500 mg PO DAILY 02/26/22 02/26/22 History tablet (Vitamin C) cholecalciferol (vitamin D3) 125 125 mcg PO DAILY 02/26/22 02/26/22 History mcg (5,000 unit) tablet (Vitamin D3) divalproex 125 mg capsule,delayed 125 mg PO Q12 02/26/22 02/26/22 History release sprinkle (Depakote Sprinkles) donepezil 5 mg tablet (Aricept) 5 mg PO DAILY 02/26/22 02/26/22 History levothyroxine 88 mcg tablet 88 mcg PO QAM 02/26/22 02/26/22 History olanzapine 5 mg tablet 5 mg PO Q12 02/26/22 02/26/22 History trazodone 50 mg tablet 25 mg PO HS 02/26/22 02/26/22 History zinc 50 mg tablet 50 mg PO DAILY 02/26/22 02/26/22 History Allergies Allergy/AdvReac Type Severity Reaction Status Date / Time No Known Allergies Allergy Verified 02/26/22 02:38 Past Med/Surg History Medical History Acid reflux Anterior dislocation of right hip Anxiety Chronic confusion Constipation Dementia Dementia with behavioral disturbance Depression Depression with anxiety History of skin cancer removed Hyperlipemia Hypothyroidism Iron deficiency anemia Osteoarthritis Overactive bladder Poor historian Poor short term memory Scoliosis Vitamin D deficiency Surgical History History of dilation and curettage History of open reduction and internal fixation (ORIF) procedure Left hip History of tooth extraction Family History Brother Diabetes Father Hypertension Other No family history of adverse response to anesthesia Social History Smoking Status: Unknown if ever smoked Second Hand Exposure: No; Hx Alcohol Use: No Hx Substance Use: No Preferred Language: Mauritian 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 Ability: Effective 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: Yes and No Beliefs That Will Affect Care: None marital status: / Current Living Situation: Family Current Living Situation Comment: was home w/ son in mobile home- How many Children do You have: 2 Feels Safe at Home: Yes Assistive Devices: None Review of Systems Unobtainable due to cognitive status Physical Exam Vital Signs Vital Signs - 24 hr 02/26/22 01:17 Temperature 36.4 C L Temperature Source Axillary Pulse Rate 105 H Respiratory Rate 32 H Blood Pressure 113/69 Blood Pressure Mean 83 Pulse Oximetry 93 Oxygen Delivery Method Non-rebreather Oxygen Flow Rate 15 Sepsis Recent Fever Within 48 Hours No Sepsis New/Unexplained Change in Mental Status No Sepsis Action Taken by Nursing MD Previously Notified GENERAL: Patient is awake alert in no acute distress; ill apearing EYES: The conjunctivae are clear. The pupils are round and reactive. EARS, NOSE, MOUTH AND THROAT: The nose is without any evidence of any deformity. Mucous membranes are dry. Tongue is midline. NECK: The neck is nontender and supple. RESPIRATORY: Normal respiratory effort is noted there is no evidence of wheezing rhonchi or rales CARDIOVASCULAR: Regular rate and rhythm noted there no murmurs rubs or gallops normal S1 normal S2. GASTROINTESTINAL: The abdomen is soft. Abdomen is nontender. PELVIS: The Pelvis is stable. No tenderness to palpation is noted. BACK: Full range of motion MUSCULOSKELETAL/EXTREMITIES: There is no evidence of gross deformity full range of motion is noted in the hips and shoulders. SKIN: There is no obvious evidence of any rash. There are no petechiae, pallor or cyanosis noted. NEUROLOGIC: Patient is awake alert Course Reevaluation(s) Reevaluation #1: Patient started on IV fluids, on a nonrebreather, IV Zosyn. Case was discussed with the hospitalist for admission Time: 03:08 Consultations Consultation #1: Lora hospitalist for admission Time: 03:08 Administered Medications Sodium Chloride (Nss 1000ml) 1,000 mls @ 999 mls/hr IV .Q1H1M ONE Stop: 02/26/22 03:33 Last Admin: 02/26/22 02:40 Dose: 999 mls/hr Documented By: ILANA Discontinued Medications Piperacillin Sod/Tazobactam Sod (Zosyn) 4.5 gm in 120 mls @ 240 mls/hr IV NOW ONE Stop: 02/26/22 02:04 Last Admin: 02/26/22 02:40 Dose: 240 mls/hr Documented By: ILANA Ioversol (Optiray 320 500ml) 114 ml IV ONCE ONE Stop: 02/26/22 02:31 Last Admin: 02/26/22 02:30 Dose: 114 ml Documented By: LUZ Medical Decision Making Medical Records Attestation: I reviewed the patient's medical records. Home Medications Current Medication List: was personally reviewed by me Laboratory Data Attestation: I reviewed the patient's lab results. Result diagrams: 02/26/22 01:23 02/26/22 01:23 Lab Results 02/26/22 02/26/22 02/26/22 Range/Units 01:23 01:23 01:23 WBC 29.62 H D (4.8-10.8) K/ul RBC 4.60 (3.93-5.22) M/uL Hgb 13.2 (12.0-16.0) g/dl POC Hgb (12.0-16.0) g/dl Hct 41.9 (34.1-44.9) % POC Hct (37-47) % MCV 91.1 (80.0-100.0) fL MCH 28.7 (25.0-34.0) pg MCHC 31.5 L (32.0-36.0) g/dL RDW Std Deviation 52.9 H (36.4-46.3) fL RDW Coeff of Deidre 15.9 H (11.5-14.5) % Plt Count 591 H (130-400) K/uL MPV 9.5 (9.4-12.3) fL Immature Gran % (Auto) 0.9 % Neut % (Auto) 89.9 % Lymph % (Auto) 3.1 % [place] % (Auto) 5.9 % Eos % (Auto) 0.0 % Baso % (Auto) 0.2 % Neut # (Auto) 26.61 H (1.4-6.5) K/uL Lymph # (Auto) 0.91 L (1.2-3.4) K/uL [place] # (Auto) 1.76 H (0.24-0.82) K/uL Eos # (Auto) 0.00 (0-0.50) K/uL Baso # (Auto) 0.07 (0-0.2) K/uL Immature Gran # (Auto) 0.27 H (0.00-0.02) K/uL VBG pH (7.36-7.41) VBG pCO2 (38-50) mmHg VBG pO2 mmHg VBG HCO3 mmol/L VBG O2 Saturation % VBG Base Excess mEq/L POC Sodium (135-144) mmol/L Sodium 154 H (136-145) mmol/L POC Potassium (3.3-5.0) mmol/L Potassium 4.3 (3.5-5.1) mmol/L POC Chloride (101-112) mmol/L Chloride 116 H (98-107) mmol/L Carbon Dioxide 26 (21-32) mmol/L POC Total CO2 (24-31) mmol/L Anion Gap 12 H (3-11) POC Anion Gap (16-25) mmol/L POC BUN (7-18) mg/dl BUN 44 H (6-23) mg/dl Creatinine 0.98 D (0.6-1.2) mg/dl POC Creatinine (0.6-1.3) mg/dl Est Cr Clr Drug Dosing Not Reportable Est GFR ( Amer) 64.5 ml/min Est GFR (Non-Af Amer) 55.6 ml/min BUN/Creatinine Ratio 44.9 H (10-20) Glucose 184 H (70-99(Fasting)) mg/dl POC Glucose (other) (70-99) mg/dl Calcium 8.3 L (8.5-10.1) mg/dl POC Ioniz Calcium Genie (1.12-1.32) mmol/l Magnesium 3.0 H (1.7-2.4) mg/dl Total Bilirubin 0.5 (0.2-1.0) mg/dl Direct Bilirubin 0.2 (0-0.2) mg/dl AST 31 (13-39) U/L ALT 46 (7-52) U/L Alkaline Phosphatase 119 H (34-104) U/L Troponin I High Sens 23.4 H (0-14) pg/ml Total Protein 7.9 (6.0-8.3) gm/dl Albumin 3.5 (3.4-5.0) gm/dl Procalcitonin 1.94 H (0-0.5) ng/ml SARS-CoV-2 (PCR) (Negative) Influenza Type A (PCR) (Neg) Influenza Type B (PCR) (Neg) RSV (RT-PCR) (Neg) 02/26/22 02/26/22 02/26/22 Range/Units 01:23 01:37 02:13 WBC (4.8-10.8) K/ul RBC (3.93-5.22) M/uL Hgb (12.0-16.0) g/dl POC Hgb 14.3 (12.0-16.0) g/dl Hct (34.1-44.9) % POC Hct 42 (37-47) % MCV (80.0-100.0) fL MCH (25.0-34.0) pg MCHC (32.0-36.0) g/dL RDW Std Deviation (36.4-46.3) fL RDW Coeff of Deidre (11.5-14.5) % Plt Count (130-400) K/uL MPV (9.4-12.3) fL Immature Gran % (Auto) % Neut % (Auto) % Lymph % (Auto) % [place] % (Auto) % Eos % (Auto) % Baso % (Auto) % Neut # (Auto) (1.4-6.5) K/uL Lymph # (Auto) (1.2-3.4) K/uL [place] # (Auto) (0.24-0.82) K/uL Eos # (Auto) (0-0.50) K/uL Baso # (Auto) (0-0.2) K/uL Immature Gran # (Auto) (0.00-0.02) K/uL VBG pH 7.45 H (7.36-7.41) VBG pCO2 39 (38-50) mmHg VBG pO2 39 mmHg VBG HCO3 27 mmol/L VBG O2 Saturation 63.0 % VBG Base Excess 3.0 mEq/L POC Sodium 155 H (135-144) mmol/L Sodium (136-145) mmol/L POC Potassium 4.2 (3.3-5.0) mmol/L Potassium (3.5-5.1) mmol/L POC Chloride 117 H (101-112) mmol/L Chloride (98-107) mmol/L Carbon Dioxide (21-32) mmol/L POC Total CO2 27 (24-31) mmol/L Anion Gap (3-11) POC Anion Gap 15.0 L (16-25) mmol/L POC BUN 40 H (7-18) mg/dl BUN (6-23) mg/dl Creatinine (0.6-1.2) mg/dl POC Creatinine 1.1 (0.6-1.3) mg/dl Est Cr Clr Drug Dosing Est GFR ( Amer) ml/min Est GFR (Non-Af Amer) ml/min BUN/Creatinine Ratio (10-20) Glucose (70-99(Fasting)) mg/dl POC Glucose (other) 177 H (70-99) mg/dl Calcium (8.5-10.1) mg/dl POC Ioniz Calcium Genie 1.06 L (1.12-1.32) mmol/l Magnesium (1.7-2.4) mg/dl Total Bilirubin (0.2-1.0) mg/dl Direct Bilirubin (0-0.2) mg/dl AST (13-39) U/L ALT (7-52) U/L Alkaline Phosphatase (34-104) U/L Troponin I High Sens (0-14) pg/ml Total Protein (6.0-8.3) gm/dl Albumin (3.4-5.0) gm/dl Procalcitonin (0-0.5) ng/ml SARS-CoV-2 (PCR) POSITIVE A* (Negative) Influenza Type A (PCR) Negative (Neg) Influenza Type B (PCR) Negative (Neg) RSV (RT-PCR) Negative (Neg) Imaging Data Attestation: I personally reviewed and interpreted this imaging study as follows: My Impression: Chest x-ray interpreted by me right lower lobe infiltrate is present ECG Data Attestation: I personally reviewed and interpreted this ECG as follows: Additional Comments: EKG interpreted by me sinus tachycardia rate of [address]-T changes no obvious ST segment elevation or depression normal intervals normal axis MDM Narrative Medical decision making differential diagnosis includes bronchitis upper respiratory tract infection pneumonia pulmonary embolism cardiac dysrhythmia electrolyte abnormality. Plan is to check sepsis labs, chest x-ray, CT, EKG, observe Patient was evaluated for possible sepsis, patient has an elevated white blood cell count, patient has a right lower lobe infiltrate, patient is COVID- positive. Patient has an elevated procalcitonin. Patient is hypernatremic and dehydrated. Patient was given a 30 mL/kg IV bolus of saline as well as started on IV Zosyn. Patient had a CT of her chest that was negative for pulmonary embolism and shows a right lower lobe infiltrate. Patient is in guarded condition and needs to be admitted for sepsis pneumonia COVID dehydration hypernatremia. The case was discussed with the hospitalist from [facility] for admission Impression & Plan Pneumonia, Sepsis, COVID-19, Acute hypernatremia Discharge Plan Visit Data Chief Complaint: Shortness of Breath/Dyspnea Stated Complaint: BREATHING DIFFICULTY/CHANGE IN MENTAL STATUS ED Provider: Bairon Thomas Discharge Problem: Pneumonia, Sepsis, COVID-19, Acute hypernatremia Patient Disposition: Being Evaluated by Hospitalist Forms Stand Alone Forms: My [facility] Prescriptions Prescriptions: No Action acetaminophen [Tylenol] 325 mg Tablet 650 mg PO Q6 PRN (Reason: fever/pain) donepezil [Aricept] 5 mg Tablet 5 mg PO DAILY trazodone 50 mg Tablet 25 mg PO HS olanzapine 5 mg Tablet 5 mg PO Q12 amlodipine [Norvasc] 5 mg Tablet 5 mg PO DAILY levothyroxine 88 mcg tablet 88 mcg PO QAM ascorbic acid (vitamin C) [Vitamin C] 500 mg Tablet 500 mg PO DAILY Rx Instructions: give for 14 days, End 03/03/22 zinc 50 mg Tablet 50 mg PO DAILY Rx Instructions: for 14 days, End 03/03/22 divalproex [Depakote Sprinkles] 125 mg Capsule, Delayed Rel Sprinkle 125 mg PO Q12 cholecalciferol (vitamin D3) [Vitamin D3] 125 mcg (5,000 unit) Tablet 125 mcg PO DAILY Rx Instructions: for 14 days Referrals Referrals: Ok Gruber [Primary Care Provider] -
[2022-02-26] MEDS ORDERED: PIPERACILLIN/TAZOBACTAM 4.5 GM/120 ML BAG IV ONE (01:35)
[2022-02-26 01:52] LABS: iSTAT Creatinine 1.1 mg/dl (0.6-1.3); iSTAT Hemoglobin 14.3 g/dl (12.0-16.0); iSTAT Ionized Calcium 1.06 mmol/l (1.12-1.32); iSTAT Potassium 4.2 mmol/L (3.3-5.0)
[2022-02-26 02:05] LABS: Hematocrit (blood only) 41.9 % (34.1-44.9); Hemoglobin 13.2 g/dl (12.0-16.0); Mean Corpuscular Hemoglobin 28.7 pg (25.0-34.0); Mean Corpuscular Hgb Conc 31.5 g/dL (32.0-36.0); Mean Corpuscular Volume 91.1 fL (80.0-100.0); Mean Platelet Volume 9.5 fL (9.4-12.3); Platelet Count 591 K/uL (130-400); RDW Coefficient of Variation 15.9 % (11.5-14.5); RDW Standard Deviation 52.9 fL (36.4-46.3); White Blood Count 29.62 K/ul (4.8-10.8)
[2022-02-26 02:10] LABS: Basophils # (auto) 0.07 K/uL (0-0.2); Basophils % (auto) 0.2 %; Immature Granulocytes # (auto) 0.27 K/uL (0.00-0.02); Immature Granulocytes % (auto) 0.9 %; Lymphocytes # (auto) 0.91 K/uL (1.2-3.4); Lymphocytes % (auto) 3.1 %; Monocytes # (auto) 1.76 K/uL (0.24-0.82); Monocytes % (auto) 5.9 %; Neutrophils # (auto) 26.61 K/uL (1.4-6.5); Neutrophils % (auto) 89.9 %
[2022-02-26 02:22] LABS: Alanine Aminotransferase 46 U/L (7-52); Albumin Level 3.5 gm/dl (3.4-5.0); Alkaline Phosphatase 119 U/L (34-104); Anion Gap 12 (3-11); Aspartate Aminotransferase 31 U/L (13-39); BUN Creatinine Ratio 44.9 (10-20); Bilirubin Direct 0.2 mg/dl (0-0.2); Bilirubin,Total 0.5 mg/dl (0.2-1.0); Blood Urea Nitrogen 44 mg/dl (6-23); Calcium 8.3 mg/dl (8.5-10.1); Carbon Dioxide 26 mmol/L (21-32); Chloride 116 mmol/L (98-107); Est GFR (African American) 64.5 ml/min; Est GFR (Non-African American) 55.6 ml/min; Glucose 184 mg/dl (70-99(Fasting)); Potassium 4.3 mmol/L (3.5-5.1); Sodium 154 mmol/L (136-145); Total Protein 7.9 gm/dl (6.0-8.3); Troponin I High Sensitivity 23.4 pg/ml (0-14)
[2022-02-26] MEDS ORDERED: SODIUM CHLORIDE 0.9% 1000ML 2,000 ML IV ONE (02:26)
[2022-02-26 02:28] LABS: HCO3 VBG 27 mmol/L; PCO2 VBG 39 mmHg (38-50); PO2 VBG 39 mmHg; pH VBG 7.45 (7.36-7.41)
[2022-02-26] MEDS ORDERED: OPTIRAY 320 500ml IV ONE (02:30)
[2022-02-26] MEDS ORDERED: SODIUM CHLORIDE 0.9% 1000ML 1,000 ML IV ONE (02:33)
[2022-02-26 02:39] LABS: Influenza A virus by PCR Negative (Neg); Influenza B virus by PCR Negative (Neg); RSV by PCR Negative (Neg)
[2022-02-26 02:52] LABS: SARS CoV2 RNA(COVID-19) Ceph POSITIVE (Negative)
--- NOTE | 2022-02-26 07:03 | CT Scan Report ---
CT ANGIOGRAPHY OF THE CHEST, PULMONARY EMBOLUS PROTOCOL CLINICAL HISTORY: Shortness of breath. Evaluate for pulmonary embolus. COMPARISON STUDY: Chest radiographs January 16, 2022 and February 26, 2022. TECHNIQUE: Following IV administration of 114 mL of Optiray, helical axial images of the chest were o btained utilizing the pulmonary embolus protocol. Maximal intensity projections and sagittal and cor onal reformats were viewed on an independent 3D workstation. IV contrast was administered without co mplication. Automated exposure control was utilized for the study. A dose lowering technique was ut ilized adhering to the principles of ALARA. CT DOSE: 474.43 mGy.cm FINDINGS: There are several small segmental and subsegmental pulmonary emboli within the left lower lobe. No central pulmonary emboli are identified. There is no pericardial effusion. Moderate coronary artery calcification is noted. Lungs are suboptimally assessed due to respiratory motion. There is n o pneumothorax or pleural effusion. There is dense consolidation throughout the majority of the right lower lobe. Extensive associated secretions within the right lower lobe bronchi are noted. There are also moderate airspace opacities within the right middle lobe and scattered airspace opacities withi n the lingula and left lower lobe. No central obstructing mass is identified. These findings are new since chest radiograph of January 16, 2022. Hypoechoic dense bilateral adrenal nodules measure up to 2.5 cm. These favor adenomas. IMPRESSION: 1. Several small segmental and subsegmental pulmonary emboli within the left lower lobe. This finding will be called/faxed to ordering provider. 2. Dense consolidation throughout the majority of the right lower lobe with extensive secretions with in right lower lobe bronchi. This favors aspiration pneumonitis or pneumonia. Scattered additional ai rspace opacities throughout the lungs. ACT 112: Negative or not required by law. Electronically signed by: Masoud Duran M.D. 02/26/2022 7:01 AM
--- NOTE | 2022-02-26 07:03 | XRay Report ---
XR chest 1V portable CLINICAL HISTORY: Sepsis. COMPARISON STUDY: Chest radiograph January 16, 2022. FINDINGS: Lung volumes are mildly diminished. There is no pneumothorax or pleural effusion. There has been interval development of right lower lung consolidation since prior exam. There is also mild lef t basilar opacity. There is no evidence for pulmonary edema. Cardiomediastinal silhouette is stable. IMPRESSION: 1. Interval development of right basilar opacity consistent with pneumonia or aspiration pneumonitis. 2. Left basilar opacity which could reflect atelectasis or an infectious process. ACT 112: Negative or not required by law. Electronically signed by: Masoud Duran M.D. 02/26/2022 7:02 AM
[2022-02-26] MEDS ORDERED: D5W AND 1/2NSS 1,000 ML IV SCH (07:40)
[2022-02-26] MEDS ORDERED: REMDESIVIR 200 MG in SODIUM CHLORIDE 0.9% 210 ML IV STA (07:40)
[2022-02-26] MEDS ORDERED: NITROGLYCERIN SL 0.4 MG/TAB TAB SL PRN (07:40)
[2022-02-26] MEDS ORDERED: LEVALBUTEROL HCL 1.25 MG/3 ML NEB NEB PRN (07:40)
[2022-02-26] MEDS ORDERED: ONDANSETRON INJ 2 MG/ML 2 ML VIAL IV PRN (07:40)
--- NOTE | 2022-02-26 07:56 | History and Physical Report ---
DATE OF ADMISSION: 02/26/2022. CHIEF COMPLAINT: Lethargy. HISTORY OF PRESENT ILLNESS: This is a 77-year-old female with past medical history significant for hypothyroidism, dementia, hyperlipidemia, hypertension, history of generalized anxiety disorder, who presents from [facility] with lethargy and shortness of breath. The patient was in the hospital, admitted on 01/16/2022 with agitation. It looks like she was also admitted in december for agitation due to dementia. Looks like on January admission, the patient's son had dropped her at the ED and did not stay with her and it looks like son did not come to the hospital and she was discharged to [facility] on 02/06/2022. She was seen by psychiatry during last admission and was discharged on Zyprexa. Currently, the patient is lethargic, could not tell her name, mumbling some words when asking questions, and she is on non-rebreather mask, saturating at 94%. Seems for EMS, she was saturating in 70s. Could not get any history from the patient. As per [facility], when she came in, she was to walk with a walker, but is sometimes not using it. She has severe dementia and she does not know where she is as per penitentiary, but last three days she is not eating and drinking, she is lethargic. Yesterday, she had fever of 101, but after that she was okay, but she has some cough, and it is not getting better, that is the reason she was sent in here. As per penitentiary, there is no nausea, no vomiting, and no diarrhea. Could not get much history currently. ALLERGIES: No known drug allergies. PAST MEDICAL HISTORY: As mentioned above. PAST SURGICAL HISTORY: Dental surgery. MEDICATIONS: Currently, the patient is on Tylenol 650 mg p.o. q. 6 hours p.r.n., Norvasc 5 mg p.o. daily, vitamin C 500 mg p.o. daily, vitamin D 125 mcg p.o. daily, Depakote 125 mg p.o. b.i.d., donepezil 5 mg p.o. daily, levothyroxine 88 mcg p.o. daily, olanzapine 5 mg p.o. b.i.d., trazodone 25 mg p.o. at bedtime, zinc 50 mg p.o. daily. FAMILY HISTORY: Significant for brother has diabetes. SOCIAL HISTORY: Currently living at [facility]. No smoking, no alcohol as per the records. REVIEW OF SYSTEMS: Could not obtain at this time as the patient is lethargic. PHYSICAL EXAMINATION: VITAL SIGNS: Temperature 36.4, pulse 97, respiratory rate 18, blood pressure 140/77, and oxygen 94% on 10 liters nonrebreather. HEENT: The patient is closing the eyes, could not examine the eyes. Atraumatic. No facial droop seen. NECK: No neck masses seen. CARDIOVASCULAR: S1 and S2 heard. Regular rate and rhythm. No murmur, no gallop. RESPIRATORY SYSTEM: No accessory muscle use. No obvious wheezing or crackles. ABDOMEN: Soft, bowel sounds present, no distention. CENTRAL NERVOUS SYSTEM: Lethargic, not answering any questions, some mumbling words. EXTREMITIES: No edema, no erythema. LABORATORY DATA: WBC 29.6, hemoglobin 13.2, hematocrit 41.9, platelets 591. Venous blood gas, pH of 7.45, pCO2 of 39. Sodium 154, potassium 4.3, chloride 116, BUN 44, creatinine 0.9, serum glucose 184. Lactate was 3.2, magnesium 3, direct bilirubin 0.2, AST 31, ALT 46, alkaline phosphatase 119. Troponin 1 high sensitivity 23.4. Procalcitonin 1.94. SARS-CoV-2 PCR positive. Influenza A and B PCR negative. RSV PCR negative. IMAGING DATA: Chest x-ray is showing right lower lobe pneumonia. CTA chest, preliminary report, no PE, but showing dense consolidation in the right lower lobe concerning for infection. No large effusion or pneumothorax. EKG: Sinus tachycardia with PVCs or fusion complexes at a rate of 105. Poor quality data. QTC 494. ASSESSMENT AND PLAN: A 77-year-old female who presents with lethargy, respiratory distress, found to have COVID and pneumonia. 1. Respiratory distress. VBGs were okay. CTAchest, no PE, but revealed right lower lobe pneumonia. Follow the final report of the CT scan. ER gave Zosyn. Will continue with Zosyn and doxycycline. Nebs p.r.n. We will try to wean the oxygen. Closely monitor in the tele floor. 2. Hypernatremia: Sodium of 154. As per penitentiary, she is not eating or drinking for the last 3 days. Received normal saline as per sepsis protocol in the ER. Will continue with D5 half normal saline at 125 mL per hour. Follow the BMP q. 6 hours. If it is not improving, consult nephrology. 3. Sepsis: Meets criteria for sepsis with tachycardia, white count, elevated lactic acid, and elevated procalcitonin. Antibiotics as above, getting fluids as above. Will monitor the response. 4. COVID positive: As the patient is requiring oxygen, will place her on remdesivir and IV steroids. COVID precautions. Monitor the response. 5. Elevated lactic acid: Possibly sepsis vs respiratory distress. Follow the repeat labs. Treatment as above. 6. History of hypertension: Amlodipine, with holding parameters. 7. Hypothyroidism: On Synthroid. 8. History of dementia with behavioral disturbance: Will continue her home medications of Aricept, Zyprexa, and Depakote. Will monitor for any delirium. 9. Mild elevation of troponin. Moistly demand ischemia. Will follow repeat enzymes. 10. Deep venous thrombosis prophylaxis: Will place her on Lovenox. DISPOSITION: Closely monitor in the tele floor. PT/OR prior to discharge. Social service to help with discharge planning. CODE STATUS: Level 1 full code as per my discussion with penitentiary. Job ID: [id number]
[2022-02-26] MEDS ORDERED: Heparin IV Adult Wt-Based Standard WITH Bolus Protocol IV STA (08:19)
--- NOTE | 2022-02-26 08:46 | Pulmonary Consultation ---
Date of Consultation February 26, 2022 Assessment & Plan (1) COVID-19: (2) Multifocal pneumonia: (3) Sepsis: (4) Pulmonary embolism: Plan CT chest 02/26/2022 personally reviewed: Dense consolidative process appreciated right lower lobe as well as lateral segment of right middle lobe Consolidative process versus atelectasis of the left lower lobe Segmental and subsegmental left lower lobe pulmonary emboli No significant mediastinal lymphadenopathy -- Acute hypoxic respiratory failure Multifactorial Likely secondary to multilobar pneumonia along with pulmonary emboli Procalcitonin 1.94 Covid-19 PCR positive Influenza A/B negative RSV negative Continue with O2 supplementation to keep oxygen saturation between 90-92% If there is any respiratory distress would recommend BiPAP patient is compliant Incentive spirometry and flutter valve will be beneficial -- Acute pulmonary emboli Continue with heparin drip Follow-up Doppler lower extremity Plan: Continue with heparin drip, follow-up ultrasound Doppler bilateral lower extremity Continue with broad-spectrum antibiotic given the elevated procalcitonin and dense consolidative process Continue with dexamethasone 6 mg on a daily basis O2 supplementation to keep oxygen saturation between 90-92% Mucinex with incentive spirometry Please note the above document was generated using voice recognition software. It may contain grammatical, syntax or spelling errors.Any formal questions or concerns about the content, text or information contained within the body of this dictation should be directly addressed to the provider for clarification. History of Present Illness Attending Physician: Mallory Acevedo MD History of Present Illness 77-year-old female present to the hospital with complaints of lethargy and shortness of breath Past medical history: Dyslipidemia, dementia, hypertension, hypothyroidism Pulmonary consulted for hypoxia and abnormal chest CT Please make note patient is a very poor historian. She was in soft mittens at the time of examination She was alert, not in any respiratory distress. Denied any chest pain, says her breathing is okay She was saturating 90-91% on 2 and half liters. Heart rate was in the 100s Social history: Lifetime non-smoker Allergies Allergy/AdvReac Type Severity Reaction Status Date / Time No Known Allergies Allergy Verified 02/26/22 02:38 Home Medications Medication Instructions Recorded Confirmed Type acetaminophen 325 mg tablet 650 mg PO Q6 PRN fever/pain 02/26/22 02/26/22 History (Tylenol) amlodipine 5 mg tablet (Norvasc) 5 mg PO DAILY 02/26/22 02/26/22 History ascorbic acid (vitamin C) 500 mg 500 mg PO DAILY 02/26/22 02/26/22 History tablet (Vitamin C) cholecalciferol (vitamin D3) 125 125 mcg PO DAILY 02/26/22 02/26/22 History mcg (5,000 unit) tablet (Vitamin D3) divalproex 125 mg capsule,delayed 125 mg PO Q12 02/26/22 02/26/22 History release sprinkle (Depakote Sprinkles) donepezil 5 mg tablet (Aricept) 5 mg PO DAILY 02/26/22 02/26/22 History levothyroxine 88 mcg tablet 88 mcg PO QAM 02/26/22 02/26/22 History olanzapine 5 mg tablet 5 mg PO Q12 02/26/22 02/26/22 History trazodone 50 mg tablet 25 mg PO HS 02/26/22 02/26/22 History zinc 50 mg tablet 50 mg PO DAILY 02/26/22 02/26/22 History Patient History Medical History Acid reflux Anterior dislocation of right hip Anxiety Chronic confusion Constipation Dementia Dementia with behavioral disturbance Depression Depression with anxiety History of skin cancer removed Hyperlipemia Hypothyroidism Iron deficiency anemia Osteoarthritis Overactive bladder Poor historian Poor short term memory Scoliosis Vitamin D deficiency Surgical History History of dilation and curettage History of open reduction and internal fixation (ORIF) procedure Left hip History of tooth extraction Family History Brother Diabetes Father Hypertension Other No family history of adverse response to anesthesia Social History Smoking Status: Unknown if ever smoked Second Hand Exposure: No; Hx Alcohol Use: No Hx Substance Use: No Preferred Language: Turkish 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 Ability: Impaired Warp Dyeing Vat Tender Required: Yes and No Beliefs That Will Affect Care: None marital status: / Current Living Situation: Family Current Living Situation Comment: was home w/ son in mobile home- How many Children do You have: 2 Feels Safe at Home: Yes Assistive Devices: None Review of Systems Review of Systems: All systems reviewed & are unremarkable except as noted in HPI & below Physical Exam Physical Exam: Constitutional: No acute distress, frail-appearing HEENT: EOMI, PERRLA Respiratory system: Decreased air entry bilaterally, more decreased on the right side, no wheeze, rhonchi, positive crackles bilaterally CVS: S1-S2 positive, no murmurs or gallops, tachycardia Abdomen: Soft, nontender, nondistended, positive bowel sounds x4 Extremities: +2 pulses bilaterally radialis/ dorsalis pedis, no cyanosis, no edema Neuro: Awake alert oriented only to self Psych: Normal mood and affect G/U: Pure wick Skin: no rashes, warm and dry Lymphatic: no cervical or axillary lymphadenopathy Results & Data Results & Data ([facility]) Vital Signs (Past 12 Hours) Vital Signs Temp Pulse Pulse Resp BP BP Pulse Ox 02/26/22 06:34 86 21 144/74 H 94 02/26/22 06:04 87 26 H 128/69 93 02/26/22 05:21 93 02/26/22 05:03 93 H 28 H 129/72 95 02/26/22 04:37 91 H 25 H 126/68 95 02/26/22 03:21 94 02/26/22 03:14 97 H 18 140/77 94 02/26/22 03:14 97 H 18 94 02/26/22 01:17 36.4 C L 105 H 32 H 113/69 93 O2 Del Method O2 Flow Rate 02/26/22 06:34 Oxymask 10 02/26/22 06:04 Oxymask 10 02/26/22 05:21 Oxymask 10 02/26/22 05:03 Non-rebreather 10 02/26/22 04:37 Non-rebreather 10 02/26/22 03:21 Non-rebreather 10 02/26/22 03:14 Non-rebreather 10 02/26/22 03:14 Non-rebreather 10 02/26/22 01:17 Non-rebreather 15 Laboratory Results 02/26/22 01:23 02/26/22 01:23 PG Care Time/CCT Total # of Minutes Spent Total Time Spent with Patient: Total time spent is greater than 50% in coordination of care (as documented) at patient's floor/unit and/or counseling patient: Coding Level of Care Code 90507 Initial Inpt Care Lvl 3 Diagnoses COVID-19 U07.1 Multifocal pneumonia J18.9 Sepsis A41.9 Pulmonary embolism I26.99
[2022-02-26 08:58] LABS: Hematocrit (blood only) 36.5 % (34.1-44.9); Hemoglobin 11.3 g/dl (12.0-16.0); Mean Corpuscular Hemoglobin 28.6 pg (25.0-34.0); Mean Corpuscular Volume 92.4 fL (80.0-100.0); Mean Platelet Volume 9.7 fL (9.4-12.3); Platelet Count 474 K/uL (130-400); RDW Coefficient of Variation 15.9 % (11.5-14.5); RDW Standard Deviation 54.4 fL (36.4-46.3); Red Blood Count 3.95 M/uL (3.93-5.22); White Blood Count 27.35 K/ul (4.8-10.8)
[2022-02-26] MEDS ORDERED: ENOXAPARIN INJ 40 MG/0.4 ML SYR SQ SCH (09:00)
[2022-02-26 09:13] LABS: Basophils # (auto) 0.04 K/uL (0-0.2); Basophils % (auto) 0.1 %; Immature Granulocytes # (auto) 0.24 K/uL (0.00-0.02); Immature Granulocytes % (auto) 0.9 %; Lymphocytes # (auto) 1.92 K/uL (1.2-3.4); Monocytes % (auto) 6.6 %; Neutrophils # (auto) 23.35 K/uL (1.4-6.5); Neutrophils % (auto) 85.4 %
[2022-02-26 09:28] LABS: INR 1.1 (0.9-1.1); Partial Thromboplastin Time 26.6 Seconds (21.0-31.0); Prothrombin Time 11.3 Seconds (9.0-12.0)
[2022-02-26 09:31] LABS: Anion Gap 8 (3-11); BUN Creatinine Ratio 49.3 (10-20); Blood Urea Nitrogen 35 mg/dl (6-23); Calcium 7.7 mg/dl (8.5-10.1); Carbon Dioxide 25 mmol/L (21-32); Chloride 123 mmol/L (98-107); Est GFR (African American) 95.2 ml/min; Est GFR (Non-African American) 82.2 ml/min; Glucose 146 mg/dl (70-99(Fasting)); Magnesium 2.9 mg/dl (1.7-2.4); Potassium 3.9 mmol/L (3.5-5.1); Sodium 156 mmol/L (136-145); Troponin I High Sensitivity 19.6 pg/ml (0-14)
[2022-02-26] MEDS ORDERED: HEPARIN SOD (PORCINE) 1000 UNIT/ML IV ONE (10:19)
[2022-02-26] MEDS: amLODIPine BESYLATE 5 MG TAB PO SCH (10:44)
[2022-02-26] MEDS: ZINC SULFATE 220 MG CAPSULE PO SCH (10:45)
[2022-02-26] MEDS: DIVALPROEX SODIUM SPRINKLE/DEL-REL 125 MG CAP PO SCH ×2 (10:45→22:13)
[2022-02-26] MEDS: CHOLECALCIFEROL 5,000 UNITS 125 MCG TAB PO SCH (10:45)
[2022-02-26] MEDS: LEVOTHYROXINE SODIUM 88 MCG TABLET PO SCH (10:45)
[2022-02-26] MEDS: OLANZapine 5 MG TABLET PO SCH ×2 (10:45→22:13)
[2022-02-26] MEDS: ASCORBIC ACID 500 MG TAB PO SCH (10:45)
[2022-02-26] MEDS: DONEPEZIL HCL 5 MG TAB PO SCH (10:45)
[2022-02-26] MEDS: dexAMETHasone 6 MG in SYRINGE 0 ML IV SCH (11:18)
--- NOTE | 2022-02-26 12:12 | 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 Note ---
Date of Service: February 26, 2022 77-year-old female with past medical history significant for hypothyroidism, dementia, hyperlipidemia, hypertension, history of generalized anxiety disorder, who presents from [facility] with lethargy and shortness of breath Patient seen and examined She is oriented to person only. Exam notable for diminished breath sounds, +crackles Labs notable for hypernatremia, hyperchloremia, +COVID test, procalcitonin 1.97, Lactate 3.2->2.3, leukocytosis of 27K, Hb 11.3, trop 17.1, Mag 2.9 CT chest noted several segmental and subsegmental PE in left lower lobe, dense consolidation in RLL and secretions in RLL bronchi Acute respiratory failure with hypoxia COVID 19 Pneumonia Pulmonary embolism Hypernatremia Continue oxygen supplementation Continue dexamethasone and remdesivir started on admission Got 2L IVF in ER Change IVF to D5W. Monitor Na q6h Started on heparin drip Pulm recs noted Continue zosyn and doxycycline. Check MRSA. if positive, add vancomycin Agree with other plans as detailed in H&P this AM
[2022-02-26] MEDS: DEXTROSE 5% 1,000 ML IV SCH ×2 (12:58→20:09)
[2022-02-26] MEDS: DOXYCYCLINE HYCLATE 100 MG in DEXTROSE 5% 100 ML IV SCH (13:00)
[2022-02-26] MEDS: PIPERACILLIN/TAZOBACTAM 3.375 GM in DEXTROSE 5% 100 ML IV SCH ×2 (14:10→20:13)
[2022-02-26] MEDS: HEPARIN SODIUM/DEXTROSE 25,000 UNITS/500 ML BAG IV SCH (14:24)
--- NOTE | 2022-02-26 14:44 | Electrocardiogram Report ---
Test Reason : Blood Pressure : / mmHG Vent. Rate : 105 BPM Atrial Rate : 105 BPM P-R Int : 164 ms QRS Dur : 070 ms QT Int : 374 ms P-R-T Axes : 052 -01 094 degrees QTc Int : 494 ms Poor data quality, interpretation may be adversely affected Sinus tachycardia T wave abnormality, consider lateral ischemia Abnormal ECG When compared with ECG of 16-JAN-2022 17:17, Repeat the tracing with abtetter baseline Confirmed by Rajan Cazares ([id number]) on 02/26/2022 2:44:01 PM Referred By: [facility] Confirmed By:Rajan Cazares
[2022-02-26 14:57] LABS: BUN Creatinine Ratio 56.1 (10-20); Calcium 7.7 mg/dl (8.5-10.1); Creatinine Clr Calc Pharmacy 78.7 ml/min; Est GFR (African American) 103.6 ml/min; Est GFR (Non-African American) 89.4 ml/min; Potassium 3.5 mmol/L (3.5-5.1)
[2022-02-26] MEDS: OLANZapine 10 MG/2.1 ML SDV IM PRN (16:31)
[2022-02-26 16:49] LABS: Appearance Urine Cloudy (Clear); Bacteria Urine Automated 1+ (Negative); Bilirubin Urine Negative (Negative); Blood Urine 1+ (Negative); Cast Urine Automated 0 /lpf (0-5); Color Urine Yellow; Glucose Urine UA Negative (Negative); Ketones Urine Negative (Negative); Leukocyte Esterase Urine 3+ (Negative); Nitrite Urine Positive (Negative); Protein Urine 1+ (Negative); Specific Gravity Urine 1.038 (1.000-1.030); Urobilinogen Urine Negative (Negative); WBC Urine Automated >30 /hpf (0-5)
[2022-02-26 17:23] LABS: RBC Urine Automated 0-4 /hpf (0-4)
[2022-02-26 21:03] LABS: BUN Creatinine Ratio 53.8 (10-20); Calcium 7.8 mg/dl (8.5-10.1); Creatinine Clr Calc Pharmacy 86.3 ml/min; Est GFR (African American) 106.8 ml/min; Est GFR (Non-African American) 92.2 ml/min; Potassium 3.8 mmol/L (3.5-5.1)
[2022-02-26 21:10] LABS: Partial Thromboplastin Ratio 2.4
[2022-02-26 21:14] LABS: Partial Thromboplastin Time 65.8 Seconds (21.0-31.0)
[2022-02-26] MEDS: traZODone HCL 50 MG TAB PO SCH (22:13)
[2022-02-27] MEDS: DOXYCYCLINE HYCLATE 100 MG in DEXTROSE 5% 100 ML IV SCH ×2 (01:44→12:21)
[2022-02-27] MEDS: DEXTROSE 5% 1,000 ML IV SCH ×2 (05:00→15:27)
[2022-02-27] MEDS: PIPERACILLIN/TAZOBACTAM 3.375 GM in DEXTROSE 5% 100 ML IV SCH ×3 (06:36→20:39)
[2022-02-27] MEDS: LEVOTHYROXINE SODIUM 88 MCG TABLET PO SCH ×2 (06:38→06:42)
[2022-02-27 07:18] LABS: Albumin Level 2.9 gm/dl (3.4-5.0); Bilirubin,Total 0.3 mg/dl (0.2-1.0); Creatinine Clr Calc Pharmacy 104.4 ml/min; Est GFR (African American) 113.7 ml/min; Est GFR (Non-African American) 98.1 ml/min; Total Protein 6.5 gm/dl (6.0-8.3)
[2022-02-27 08:05] LABS: Partial Thromboplastin Ratio 1.9
[2022-02-27] MEDS: dexAMETHasone 6 MG in SYRINGE 0 ML IV SCH (08:06)
[2022-02-27 10:03] LABS: Hemoglobin 10.4 g/dl (12.0-16.0); Mean Corpuscular Hemoglobin 28.7 pg (25.0-34.0); Mean Corpuscular Hgb Conc 31.5 g/dL (32.0-36.0); Mean Corpuscular Volume 91.2 fL (80.0-100.0); Mean Platelet Volume 9.7 fL (9.4-12.3); Platelet Count 489 K/uL (130-400); RDW Coefficient of Variation 15.7 % (11.5-14.5); RDW Standard Deviation 52.3 fL (36.4-46.3); Red Blood Count 3.62 M/uL (3.93-5.22); White Blood Count 17.74 K/ul (4.8-10.8)
--- NOTE | 2022-02-27 10:20 | Hospitalist Progress Note ---
Date of Service February 27, 2022 Assessment & Plan (1) Acute respiratory failure with hypoxia: (2) Pulmonary embolism: (3) Pneumonia: (4) COVID-19: (5) Sepsis: (6) UTI (urinary tract infection): (7) Metabolic encephalopathy: Plan: 77 year old woman with history of dementia, hypothyroidism, hypertension, anxiety who presents from [facility] with lethargy and shortness of breath. Labs notable for hypernatremia, positive COVID test, procalcitonin 1.97, lactate 3.2->2.3, leukocytosis of 27K, Hb 11.3, trop 17.1, Mag 2.9 CT chest noted several segmental and subsegmental PE in left lower lobe, dense consolidation in RLL and secretions in RLL bronchi Has been weaned off oxygen Continue dexamethasone, remdesivir Continue zosyn Was on heparin drip. Will change to lovenox therapeutic dosing as she keeps ripping off lines Pulm eval noted Blood culture negative so far Urine culture growing GNR Concern for possible aspiration Speech therapist evaluation noted. Patient said 'no' to fluids during assessment. OFFLINE EDITOR recommends sips/chips if patient wants Refused some medications yesterday OFFLINE EDITOR will reevaluate tomorrow (8) Acute hypernatremia: Plan: Likely due to poor oral intake Continue IVF D5W Na was 154 on admission, down to 148 Nephrology consulted Encourage fluid intake po (9) Hypertension: Plan: Stable Monitor (10) Dementia: Plan: Continue home meds Use IM prn zyprexa when patient declines po Reorient Hand mitts (11) Hypothyroidism: Plan: Refusing po meds Use iv if patient continues to decline po Admission and Anticipated Discharge Date Admission Date: February 26, 2022 Subjective Patient seen and examined She is alert and oriented to person only Per RN, there was concern if there is difficulty swallowing overnight Review of Systems Review of Systems: Unobtainable due to cognitive status Physical Exam Constitutional: + well hydrated; no acute distress Eyes: PERRL, conjunctivae normal, anicteric sclerae ENMT: external ear and nose normal, oropharynx normal Respiratory: normal respiratory effort; no respiratory distress Decreased breath sounds +crackles Cardiovascular: Rate/Rhythm: regular rate and regular rhythm S1 S2 Gastrointestinal (Abdomen): normal bowel sounds, soft, nontender, no hepatosplenomegaly Musculoskeletal: No pedal edema Neurologic: PERRL, EOMI, accommodation nl, no face palsy, no dysarthria Alert and oriented to person only Results & Data Results & Data ([facility]) Vital Signs (Past 12 Hours) Vital Signs Temp Pulse Pulse Resp BP Pulse Ox O2 Del Method 02/27/22 05:54 68 02/27/22 05:01 36.5 C 54 L 18 126/82 95 Nasal Cannula 02/27/22 02:25 36.5 C 68 18 154/76 H 94 Nasal Cannula O2 Flow Rate 02/27/22 05:54 02/27/22 05:01 3 02/27/22 02:25 3 Laboratory Results Abnormal lab results 02/26/22 02/26/22 02/26/22 Range/Units 14:21 16:00 20:27 WBC (4.8-10.8) K/ul RBC (3.93-5.22) M/uL Hgb (12.0-16.0) g/dl Hct (34.1-44.9) % MCHC (32.0-36.0) g/dL RDW Std Deviation (36.4-46.3) fL RDW Coeff of Deidre (11.5-14.5) % Plt Count (130-400) K/uL APTT (21.0-31.0) Seconds Sodium 155 H 151 H (136-145) mmol/L Potassium (3.5-5.1) mmol/L Chloride 124 H 122 H (98-107) mmol/L BUN 32 H 28 H (6-23) mg/dl Creatinine 0.57 L 0.52 L (0.6-1.2) mg/dl BUN/Creatinine Ratio 56.1 H 53.8 H (10-20) Glucose 192 H 241 H (70-99(Fasting)) mg/dl Calcium 7.7 L 7.8 L (8.5-10.1) mg/dl Albumin (3.4-5.0) gm/dl Urine Appearance Cloudy A (Clear) Ur Specific [place] 1.038 H (1.000-1.030) Urine Protein 1+ H (Negative) Urine Blood 1+ H (Negative) Urine Nitrite Positive A (Negative) Ur Leukocyte Esterase 3+ H (Negative) Urine WBC (Auto) >30 H (0-5) /hpf U Epithel Cells (Auto) 10-20 H (0-5) /lpf Urine Bacteria (Auto) 1+ H (Negative) 02/26/22 02/27/22 02/27/22 Range/Units 20:27 06:37 06:37 WBC (4.8-10.8) K/ul RBC (3.93-5.22) M/uL Hgb (12.0-16.0) g/dl Hct (34.1-44.9) % MCHC (32.0-36.0) g/dL RDW Std Deviation (36.4-46.3) fL RDW Coeff of Deidre (11.5-14.5) % Plt Count (130-400) K/uL APTT 65.8 H* 52.0 H* (21.0-31.0) Seconds Sodium (136-145) mmol/L Potassium (3.5-5.1) mmol/L Chloride (98-107) mmol/L BUN (6-23) mg/dl Creatinine 0.43 L (0.6-1.2) mg/dl BUN/Creatinine Ratio (10-20) Glucose (70-99(Fasting)) mg/dl Calcium (8.5-10.1) mg/dl Albumin 2.9 L (3.4-5.0) gm/dl Urine Appearance (Clear) Ur Specific [place] (1.000-1.030) Urine Protein (Negative) Urine Blood (Negative) Urine Nitrite (Negative) Ur Leukocyte Esterase (Negative) Urine WBC (Auto) (0-5) /hpf U Epithel Cells (Auto) (0-5) /lpf Urine Bacteria (Auto) (Negative) 02/27/22 02/27/22 Range/Units 09:53 09:53 WBC 17.74 H (4.8-10.8) K/ul RBC 3.62 L (3.93-5.22) M/uL Hgb 10.4 L (12.0-16.0) g/dl Hct 33.0 L (34.1-44.9) % MCHC 31.5 L (32.0-36.0) g/dL RDW Std Deviation 52.3 H (36.4-46.3) fL RDW Coeff of Deidre 15.7 H (11.5-14.5) % Plt Count 489 H (130-400) K/uL APTT (21.0-31.0) Seconds Sodium 148 H (136-145) mmol/L Potassium 3.4 L (3.5-5.1) mmol/L Chloride 116 H (98-107) mmol/L BUN 27 H (6-23) mg/dl Creatinine 0.47 L (0.6-1.2) mg/dl BUN/Creatinine Ratio 57.4 H (10-20) Glucose 148 H (70-99(Fasting)) mg/dl Calcium 8.2 L (8.5-10.1) mg/dl Albumin (3.4-5.0) gm/dl Urine Appearance (Clear) Ur Specific [place] (1.000-1.030) Urine Protein (Negative) Urine Blood (Negative) Urine Nitrite (Negative) Ur Leukocyte Esterase (Negative) Urine WBC (Auto) (0-5) /hpf U Epithel Cells (Auto) (0-5) /lpf Urine Bacteria (Auto) (Negative) (1) Dementia Dementia behavioral or psychological symptom: unspecified whether behavioral, psychotic, or mood disturbance or anxiety Dementia severity: unspecified severity Dementia type: unspecified type Qualified Code(s): F03.90 - Unspecified dementia, unspecified severity, without behavioral disturbance, psychotic disturbance, mood disturbance, and anxiety
[2022-02-27 10:21] LABS: BUN Creatinine Ratio 57.4 (10-20); Calcium 8.2 mg/dl (8.5-10.1); Creatinine Clr Calc Pharmacy 95.5 ml/min; Est GFR (African American) 110.4 ml/min; Est GFR (Non-African American) 95.3 ml/min; Potassium 3.4 mmol/L (3.5-5.1)
[2022-02-27] MEDS: OLANZapine 10 MG/2.1 ML SDV IM PRN (10:54)
[2022-02-27] MEDS: CHOLECALCIFEROL 5,000 UNITS 125 MCG TAB PO SCH (11:04)
[2022-02-27] MEDS: DIVALPROEX SODIUM SPRINKLE/DEL-REL 125 MG CAP PO SCH ×2 (11:04→20:08)
[2022-02-27] MEDS: amLODIPine BESYLATE 5 MG TAB PO SCH (11:04)
[2022-02-27] MEDS: ASCORBIC ACID 500 MG TAB PO SCH (11:04)
[2022-02-27] MEDS: OLANZapine 5 MG TABLET PO SCH ×2 (11:05→20:08)
[2022-02-27] MEDS: ZINC SULFATE 220 MG CAPSULE PO SCH (11:05)
[2022-02-27] MEDS: DONEPEZIL HCL 5 MG TAB PO SCH (11:05)
[2022-02-27] MEDS: REMDESIVIR 100 MG in SODIUM CHLORIDE 0.9% 230 ML IV SCH (12:21)
--- NOTE | 2022-02-27 14:49 | Pulmonology Progress Note ---
Date of Service February 27, 2022 Assessment & Plan (1) Multifocal pneumonia: Plan: Likely secondary to aspiration pneumonia based on CT chest imaging with evidence of bibasilar infiltrate (right greater than left). Would recommend a very short course of antibiotics of 5 days. Can be transitioned to p.o. if able to tolerate p.o. Consider Augmentin. MRSA coverage not required as her MRSA screen was negative. Leukocytosis is improving. I would recommend discontinuing remdesivir as I do not think there is a significant role for remdesivir at this point. I do not think that COVID-19 is playing a significant role in her respiratory symptoms and CT findings. (I discontinued dexamethasone and it appears that remdesivir was very discontinued.) Recommend speech evaluation. (2) Pulmonary embolism: Plan: Transition to DOAC in the next day or so. Likely secondary to her frequent hospitalizations and poor mobility. No signs of hemodynamic instability. (3) Altered mental status: Plan: Patient likely has acute delirium in addition to her history of dementia. She was just hospitalized and discharged earlier this month. She was also hospitalized in December for dementia with behavioral disturbance. Recommend palliative care consultation and goals of care discussion with family. Altered mental status type: unspecified Qualified Code(s): R41.82 - Altered mental status, unspecified Plan I have no further input at this time. Pulmonary to sign off. Thank you for the consultation. Admission and Anticipated Discharge Date Admission Date: February 26, 2022 Subjective Patient seen and examined. Review of systems is very limited as the patient appears delirious and is not able to answer questions appropriately. In the chart it does appear that she has a history of dementia although unclear how severe. She has a nasal cannula in place, but there is no oxygen flowing through the cannula as it is currently set at 0 L/min. She does not appear to be uncomfortable. She denies any pain in her chest or abdomen. She denies any shortness of breath. Discussed with off going naphtha washing system operator and extensively reviewed chart. Review of Systems Review of Systems: Limited as noted above Physical Exam Physical Exam: Constitutional: Confused. Disheveled appearing elderly female. No acute distress. Eyes: Pupils are equal round and reactive to light. Conjunctivae are normal. Anicteric sclera. Ears nose, mouth and throat: Nasal cannula in place. Mallampati 2. Neck: Trachea is midline. Visual inspection is normal. Respiratory: Clear to auscultation bilaterally. No use of accessory muscles. No significant clubbing noted. Cardiovascular: Regular rate and rhythm. No murmurs. No edema. Gastrointestinal: Normal bowel sounds, soft, nontender and nondistended. No hepatosplenomegaly noted. Musculoskeletal: No cyanosis. Patient is able to move all extremities. Skin: No rashes, warm dry and intact. Neurologic: No obvious focal neurological deficits seen. Psychiatric: Confused. Results & Data Results & Data ([facility]) Vital Signs (Past 12 Hours) Vital Signs Temp Pulse Pulse Resp BP Pulse Ox Pulse Ox 02/27/22 11:06 36.4 C L 85 18 133/74 97 02/27/22 07:45 36.4 C L 73 18 130/72 100 02/27/22 07:40 100 02/27/22 08:00 02/27/22 05:54 68 02/27/22 05:01 36.5 C 54 L 18 126/82 95 O2 Del Method O2 Del Method O2 Flow Rate O2 Flow Rate 02/27/22 11:06 Room Air 02/27/22 07:45 Nasal Cannula 3 02/27/22 07:40 Nasal Cannula 3 02/27/22 08:00 Nasal Cannula 3 02/27/22 05:54 02/27/22 05:01 Nasal Cannula 3 PG Care Time/CCT Total # of Minutes Spent Total Time Spent with Patient: Total time spent is greater than 50% in coordination of care (as documented) at patient's floor/unit and/or counseling patient: Coding Level of Care Code 95031 Subseq Hosp Care Lvl 2 Diagnoses Multifocal pneumonia J18.9 Pulmonary embolism I26.99 Altered mental status R41.82 Altered mental status type: unspecified
[2022-02-27] MEDS: HEPARIN SODIUM/DEXTROSE 25,000 UNITS/500 ML BAG IV SCH (15:27)
--- NOTE | 2022-02-27 18:04 | Nephrology Consultation ---
Date of Consultation February 27, 2022 Assessment & Plan (1) Hypernatremia: improving appropriately goal is sNa < 145 by tomorrow am; cont D5W; suspect improvement will be limited by ability to maintain/protect IV >daily bmp at this time is reasonable > steroids will lower K further > gave 20 mEqpo bid starting this evening (2) Sepsis: getting remdeisivir/steroids for covid; getting zosyn/doxy for multifocal pna and for uti (3) Pulmonary embolism: on heparin gtt which is not currently running > will d/w hospitalist for SQ therapy i fpossible (4) Dementia with behavioral disturbance: challenging right now to maintain lines; History of Present Illness Reason for Consultation: hypernatremia Requesting Physician: Dr Acevedo Attending Physician: Mallory Acevedo MD History of Present Illness 77 y/o F whom I'm asked to see for hypernatremia was admitted yesterday AM for sepsis from covid pneumonia and Gram negative roel UTI and with presenting sodium 154. PMH includes hypothyroidism, dementia w/ behavioral disturbance, hyperlipidemia, hypertension, generalized anxiety disorder. She resides at [facility]. The pt has been receiving D5W and heparin gtt. Her sodium was as high as 156 this admission but has come down nicely w/ IV fluids to 148 this AM. Facility reports she took little po for 3 days prior to admission. Other chemistries remarkable for mild hypokalemia at 3.4 today and improving hyperchloremia. Urine Cx has GNR. UA c/w infection. Allergies Allergy/AdvReac Type Severity Reaction Status Date / Time No Known Allergies Allergy Verified 02/26/22 02:38 Home Medications Medication Instructions Recorded Confirmed Type acetaminophen 325 mg tablet 650 mg PO Q6 PRN fever/pain 02/26/22 02/26/22 History (Tylenol) amlodipine 5 mg tablet (Norvasc) 5 mg PO DAILY 02/26/22 02/26/22 History ascorbic acid (vitamin C) 500 mg 500 mg PO DAILY 02/26/22 02/26/22 History tablet (Vitamin C) cholecalciferol (vitamin D3) 125 125 mcg PO DAILY 02/26/22 02/26/22 History mcg (5,000 unit) tablet (Vitamin D3) divalproex 125 mg capsule,delayed 125 mg PO Q12 02/26/22 02/26/22 History release sprinkle (Depakote Sprinkles) donepezil 5 mg tablet (Aricept) 5 mg PO DAILY 02/26/22 02/26/22 History levothyroxine 88 mcg tablet 88 mcg PO QAM 02/26/22 02/26/22 History olanzapine 5 mg tablet 5 mg PO Q12 02/26/22 02/26/22 History trazodone 50 mg tablet 25 mg PO HS 02/26/22 02/26/22 History zinc 50 mg tablet 50 mg PO DAILY 02/26/22 02/26/22 History Patient History Medical History Acid reflux Anterior dislocation of right hip Anxiety Chronic confusion Constipation Dementia Dementia with behavioral disturbance Depression Depression with anxiety History of skin cancer removed Hyperlipemia Hypothyroidism Iron deficiency anemia Osteoarthritis Overactive bladder Poor historian Poor short term memory Scoliosis Vitamin D deficiency Surgical History History of dilation and curettage History of open reduction and internal fixation (ORIF) procedure Left hip History of tooth extraction Family History Brother Diabetes Father Hypertension Other No family history of adverse response to anesthesia Social History Smoking Status: Unknown if ever smoked Second Hand Exposure: No; Hx Alcohol Use: No (pt lives in half-way) Hx Substance Use: No (kives in half-way) Preferred Language: Spanish 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 Ability: Impaired Junior Systems Administrator Required: No Beliefs That Will Affect Care: None marital status: / Current Living Situation: Intermediate Current Living Situation Comment: was home w/ son in mobile home- How many Children do You have: 2 Feels Safe at Home: Yes Assistive Devices: Walker Review of Systems Review of Systems: Unobtainable due to cognitive status Physical Exam Constitutional: well developed, well nourished, + acute distress (asking where Prosper is, shouting/calling out) and + combative mitts on the floor beside pt Eyes: EOM intact bilaterally ENMT: Ears: no external ear abnormality Nose: no external nose abnormality Mouth: + dry oral mucous membranes Neck: no nuchal rigidity Respiratory: normal respiratory effort; no respiratory distress, no labored breathing and no cough Auscultation: + diminished lung sounds Cardiovascular: Rate/Rhythm: regular rate and regular rhythm Extremities: no edema Gastrointestinal (Abdomen): Inspection/Auscultation: normal bowel sounds Percussion/Palpation: abdomen soft; abdomen nontender Musculoskeletal: Extremities: strength 5/5 throughout (malformed/contracted ankles BL) Skin: no rashes, warm and dry Neurologic: li, fluent speech, no tremor Psychiatric: Orientation: oriented to person; + uncooperative Insight: + poor insight Judgement: + poor judgement Results & Data ([facility]) Vital Signs (Past 12 Hours) Vital Signs Temp Pulse Pulse Resp BP Pulse Ox Pulse Ox 02/27/22 17:29 36.8 C 83 18 130/68 98 02/27/22 11:06 36.4 C L 85 18 133/74 97 02/27/22 07:45 36.4 C L 73 18 130/72 100 02/27/22 07:40 100 02/27/22 08:00 02/27/22 05:54 68 O2 Del Method O2 Del Method O2 Flow Rate O2 Flow Rate 02/27/22 17:29 Room Air 02/27/22 11:06 Room Air 02/27/22 07:45 Nasal Cannula 3 02/27/22 07:40 Nasal Cannula 3 02/27/22 08:00 Nasal Cannula 3 02/27/22 05:54 Laboratory Results 02/27/22 09:53 02/27/22 09:53 Diagnostic Findings CTA chest FINDINGS: There are several small segmental and subsegmental pulmonary emboli within the left lower lobe. No central pulmonary emboli are identified. There is no pericardial effusion. Moderate coronary artery calcification is noted. Lungs are suboptimally assessed due to respiratory motion. There is no pneumothorax or pleural effusion. There is dense consolidation throughout the majority of the right lower lobe. Extensive associated secretions within the right lower lobe bronchi are noted. There are also moderate airspace opacities within the right middle lobe and scattered airspace opacities within the lingula and left lower lobe. No central obstructing mass is identified. These findings are new since chest radiograph of January 16, 2022. Hypoechoic dense bilateral adrenal nodules measure up to 2.5 cm. These favor adenomas. IMPRESSION: 1. Several small segmental and subsegmental pulmonary emboli within the left lower lobe. This finding will be called/faxed to ordering provider. 2. Dense consolidation throughout the majority of the right lower lobe with extensive secretions within right lower lobe bronchi. This favors aspiration pneumonitis or pneumonia. Scattered additional airspace opacities throughout the lungs.
[2022-02-27] MEDS ORDERED: ENOXAPARIN 1 MG/KG SQ SCH (18:30)
[2022-02-27] MEDS: traZODone HCL 50 MG TAB PO SCH (20:08)
[2022-02-27] MEDS: POTASSIUM CHLORIDE CRTAB 20 MEQ TABCR PO SCH (20:08)
[2022-02-27] MEDS: ENOXAPARIN 80 MG/0.8 ML SYR SQ SCH (20:39)
[2022-02-28] MEDS: OLANZapine 10 MG/2.1 ML SDV IM PRN (02:20)
[2022-02-28] MEDS: DOXYCYCLINE HYCLATE 100 MG in DEXTROSE 5% 100 ML IV SCH ×2 (02:20→12:24)
[2022-02-28] MEDS: DEXTROSE 5% 1,000 ML IV SCH ×3 (02:20→12:15)
[2022-02-28] MEDS: PIPERACILLIN/TAZOBACTAM 3.375 GM in DEXTROSE 5% 100 ML IV SCH ×3 (05:54→21:50)
[2022-02-28] MEDS ORDERED: LEVOTHYROXINE SODIUM 44 MCG in SYRINGE 0 ML IV SCH (06:30)
[2022-02-28 07:55] LABS: Hematocrit (blood only) 30.3 % (34.1-44.9); Hemoglobin 9.9 g/dl (12.0-16.0); Mean Corpuscular Hemoglobin 28.7 pg (25.0-34.0); Mean Corpuscular Hgb Conc 32.7 g/dL (32.0-36.0); Mean Corpuscular Volume 87.8 fL (80.0-100.0); Mean Platelet Volume 10.3 fL (9.4-12.3); Nucleated RBC # (auto) 0.06 K/uL (0-0); Nucleated RBC % (auto) 0.4 %; Platelet Count 486 K/uL (130-400); RDW Coefficient of Variation 15.6 % (11.5-14.5); Red Blood Count 3.45 M/uL (3.93-5.22); White Blood Count 13.83 K/ul (4.8-10.8)
[2022-02-28 08:09] LABS: Partial Thromboplastin Time 28.8 Seconds (21.0-31.0)
[2022-02-28 08:15] LABS: BUN Creatinine Ratio 58.1 (10-20); Calcium 7.7 mg/dl (8.5-10.1); Creatinine Clr Calc Pharmacy 109.3 ml/min; Est GFR (African American) 113.7 ml/min; Est GFR (Non-African American) 98.1 ml/min
[2022-02-28] MEDS: ENOXAPARIN 80 MG/0.8 ML SYR SQ SCH ×2 (09:01→20:02)
[2022-02-28] MEDS: ZINC SULFATE 220 MG CAPSULE PO SCH (09:01)
[2022-02-28] MEDS: DONEPEZIL HCL 5 MG TAB PO SCH (09:01)
[2022-02-28] MEDS: CHOLECALCIFEROL 5,000 UNITS 125 MCG TAB PO SCH (09:01)
[2022-02-28] MEDS: ASCORBIC ACID 500 MG TAB PO SCH (09:01)
[2022-02-28] MEDS: OLANZapine 5 MG TABLET PO SCH ×2 (09:01→21:40)
[2022-02-28] MEDS: amLODIPine BESYLATE 5 MG TAB PO SCH (09:01)
[2022-02-28] MEDS: DIVALPROEX SODIUM SPRINKLE/DEL-REL 125 MG CAP PO SCH ×2 (09:02→21:40)
[2022-02-28] MEDS: POTASSIUM CHLORIDE CRTAB 20 MEQ TABCR PO SCH (09:02)
[2022-02-28] MEDS: POTASSIUM ACETATE/NSS 10 MEQ/105 ML BAG IV SCH ×3 (09:03→11:51)
--- NOTE | 2022-02-28 11:26 | Hospitalist Progress Note ---
Date of Service February 28, 2022 Assessment & Plan (1) Acute respiratory failure with hypoxia: (2) Pulmonary embolism: (3) Pneumonia: (4) COVID-19: (5) Sepsis: (6) UTI (urinary tract infection): (7) Metabolic encephalopathy: Plan: 77 year old woman with history of dementia, hypothyroidism, hypertension, anxiety who presents from [facility] with lethargy and shortness of breath. Labs notable for hypernatremia, positive COVID test, procalcitonin 1.97, lactate 3.2->2.3, leukocytosis of 27K, Hb 11.3, trop 17.1, Mag 2.9 CT chest noted several segmental and subsegmental PE in left lower lobe, dense consolidation in RLL and secretions in RLL bronchi Has been weaned off oxygen Pulm evaluation noted. Pulm does not think COVID is playing a significant role and stopped dexa/remdesivir Continue zosyn and doxycycline. Plan to transition to po once consistently taking po Was on heparin drip. Changed to lovenox therapeutic dosing yesterday as she was refusing po and kept ripping off lines Plan to transition to po eliquis later today or tomorrow AM if she continues to take her po meds Blood culture negative so far Urine culture grew pansensitive E coli. Already on antibiotics Concern for possible aspiration Speech therapist evaluation noted yesterday. Patient said 'no' to fluids during assessment. DIRECTOR OF USER EXPERIENCE recommends sips/chips if patient wants Refused some medications yesterday. Agreed to take her meds and apple sauce this morning DIRECTOR OF USER EXPERIENCE will reevaluate today (8) Acute hypernatremia: Plan: Likely due to poor oral intake Continue IVF D5W Na was 154 on admission, down to 144 Nephrology on board Encourage fluid intake po Hypokalemia today. Replete and monitor (9) Hypertension: Plan: Stable Monitor (10) Dementia: Plan: Continue home meds Use IM prn zyprexa when patient declines po Reorient as needed Hand mitts as she rips lines (11) Hypothyroidism: Plan: Resume home po levothyroxine Call to update son was unanswered Admission and Anticipated Discharge Date Admission Date: February 26, 2022 Subjective Patient seen and examined She is alert and oriented to person only Patient is demented Lacks insight Agreed to take her meds this morning Review of Systems Review of Systems: Unobtainable due to cognitive status Physical Exam Constitutional: + well hydrated; no acute distress Eyes: PERRL, conjunctivae normal, anicteric sclerae ENMT: external ear and nose normal, oropharynx normal Respiratory: normal respiratory effort; no respiratory distress on room air, +crackles Cardiovascular: Rate/Rhythm: regular rate and regular rhythm S1 S2 Gastrointestinal (Abdomen): normal bowel sounds, soft, nontender, no hepatosplenomegaly Musculoskeletal: No pedal edema Neurologic: PERRL, EOMI, accommodation nl, no face palsy, no dysarthria Results & Data Results & Data ([facility]) Vital Signs (Past 12 Hours) Vital Signs Temp Pulse Pulse Resp BP BP Pulse Ox 02/28/22 10:49 36.7 C 62 20 151/74 H 95 02/28/22 07:00 02/28/22 06:24 43 L 02/28/22 00:00 60 02/28/22 00:41 02/27/22 23:59 36.5 C 62 20 125/80 94 O2 Del Method O2 Del Method 02/28/22 10:49 Room Air 02/28/22 07:00 Room Air 02/28/22 06:24 02/28/22 00:00 02/28/22 00:41 Room Air 02/27/22 23:59 Room Air Laboratory Results Abnormal lab results 02/28/22 02/28/22 Range/Units 07:29 07:29 WBC 13.83 H (4.8-10.8) K/ul RBC 3.45 L (3.93-5.22) M/uL Hgb 9.9 L (12.0-16.0) g/dl Hct 30.3 L (34.1-44.9) % RDW Std Deviation 50.0 H (36.4-46.3) fL RDW Coeff of Deidre 15.6 H (11.5-14.5) % Plt Count 486 H (130-400) K/uL Absolute Nucleated RBC 0.06 H (0-0) K/uL Potassium 3.0 L (3.5-5.1) mmol/L Chloride 112 H (98-107) mmol/L BUN 25 H (6-23) mg/dl Creatinine 0.43 L (0.6-1.2) mg/dl BUN/Creatinine Ratio 58.1 H (10-20) Glucose 151 H (70-99(Fasting)) mg/dl Calcium 7.7 L (8.5-10.1) mg/dl AST 47 H (13-39) U/L ALT 53 H (7-52) U/L (1) Dementia Dementia behavioral or psychological symptom: unspecified whether behavioral, psychotic, or mood disturbance or anxiety Dementia severity: unspecified severity Dementia type: unspecified type Qualified Code(s): F03.90 - Unspecified dementia, unspecified severity, without behavioral disturbance, psychotic disturbance, mood disturbance, and anxiety
--- NOTE | 2022-02-28 11:40 | Nephrology Progress Note ---
Date of Service February 28, 2022 Assessment & Plan (1) Hypernatremia: Plan: resolved; ability to maintain this will be limited by pt willingness ability to take po. >>today w/ normal Na, high Cl, low K >changed D5W to D51/2NS w/ 40 mEq/L K at 125 ml/hr; lowered K 20 mEq po bid > daily; stopped IV K for now >daily bmp at this time is reasonable Care coordinated w/ Dr Acevedo; will sign off; no specific renal f/u needed (2) Sepsis: Plan: getting remdeisivir/steroids for covid; getting zosyn/doxy for multifocal pna and for uti (3) Pulmonary embolism: Plan: on heparin gtt which is not currently running > will d/w hospitalist for SQ therapy i fpossible (4) Dementia with behavioral disturbance: Plan: challenging right now to maintain lines; in [facility] Admission and Anticipated Discharge Date Admission Date: February 26, 2022 Subjective concern for aspiration and for only sips/chips/meds for now; transitioning to po AC Review of Systems Review of Systems: Unobtainable due to cognitive status Physical Exam Constitutional: well developed, well nourished and + frail appearing; no acute distress Eyes: EOM intact bilaterally ENMT: Ears: no external ear abnormality Nose: no external nose abnormality Mouth: + dry oral mucous membranes Neck: no nuchal rigidity Respiratory: normal respiratory effort; no respiratory distress, no labored breathing and no cough Auscultation: + diminished lung sounds Cardiovascular: Rate/Rhythm: regular rate and regular rhythm Extremities: no edema Gastrointestinal (Abdomen): Inspection/Auscultation: normal bowel sounds Percussion/Palpation: abdomen soft; abdomen nontender Musculoskeletal: Extremities: strength 5/5 throughout (malformed/contracted ankles BL) Skin: no rashes, warm and dry Psychiatric: Orientation: oriented to person; + uncooperative Insight: + poor insight Judgement: + poor judgement Results & Data ([facility]) Vital Signs (Past 12 Hours) Vital Signs Temp Pulse Pulse Resp BP BP Pulse Ox 02/28/22 10:49 36.7 C 62 20 151/74 H 95 02/28/22 07:00 02/28/22 06:24 43 L 02/28/22 00:00 60 02/28/22 00:41 02/27/22 23:59 36.5 C 62 20 125/80 94 O2 Del Method O2 Del Method 02/28/22 10:49 Room Air 02/28/22 07:00 Room Air 02/28/22 06:24 02/28/22 00:00 02/28/22 00:41 Room Air 02/27/22 23:59 Room Air Laboratory Results 02/28/22 07:29 02/28/22 07:29
[2022-02-28] MEDS: D5W 1/2NSS + KCL 40 mEq IV SCH ×2 (12:15→21:36)
[2022-02-28] MEDS: REMDESIVIR 100 MG in SODIUM CHLORIDE 0.9% 230 ML IV SCH (12:24)
--- NOTE | 2022-02-28 17:09 | Electrocardiogram Report ---
Test Reason : Blood Pressure : / mmHG Vent. Rate : 043 BPM Atrial Rate : 043 BPM P-R Int : 202 ms QRS Dur : 098 ms QT Int : 482 ms P-R-T Axes : 042 013 066 degrees QTc Int : 407 ms Marked sinus bradycardia Abnormal ECG When compared with ECG of 26-FEB-2022 01:21, Vent. rate has decreased BY 62 BPM QRS duration has increased T wave inversion no longer evident in Anterior leads QT has shortened Confirmed by Chan Robb ([id number]) on 02/28/2022 5:08:56 PM Referred By: [facility] Confirmed By:Blayne Robb
[2022-02-28] MEDS: traZODone HCL 50 MG TAB PO SCH (21:40)
[2022-03-01] MEDS: DOXYCYCLINE HYCLATE 100 MG in DEXTROSE 5% 100 ML IV SCH ×2 (01:54→12:32)
[2022-03-01] MEDS: D5W 1/2NSS + KCL 40 mEq IV SCH ×3 (04:30→20:59)
[2022-03-01] MEDS: PIPERACILLIN/TAZOBACTAM 3.375 GM in DEXTROSE 5% 100 ML IV SCH ×3 (04:31→21:02)
[2022-03-01] MEDS: ENOXAPARIN 80 MG/0.8 ML SYR SQ SCH ×2 (06:21→19:55)
[2022-03-01] MEDS: LEVOTHYROXINE SODIUM 88 MCG TABLET PO SCH (06:21)
[2022-03-01] MEDS: ZINC SULFATE 220 MG CAPSULE PO SCH (08:54)
[2022-03-01] MEDS: amLODIPine BESYLATE 5 MG TAB PO SCH (08:54)
[2022-03-01] MEDS: ASCORBIC ACID 500 MG TAB PO SCH (08:54)
[2022-03-01] MEDS: DONEPEZIL HCL 5 MG TAB PO SCH (08:55)
[2022-03-01] MEDS: CHOLECALCIFEROL 5,000 UNITS 125 MCG TAB PO SCH (08:55)
[2022-03-01] MEDS: DIVALPROEX SODIUM SPRINKLE/DEL-REL 125 MG CAP PO SCH ×2 (08:56→21:01)
[2022-03-01] MEDS: POTASSIUM CHLORIDE CRTAB 20 MEQ TABCR PO SCH (08:56)
[2022-03-01] MEDS: OLANZapine 5 MG TABLET PO SCH ×2 (08:57→21:01)
[2022-03-01] MEDS ORDERED: LEVOTHYROXINE SODIUM 44 MCG in SYRINGE 0 ML IV SCH (09:00)
[2022-03-01 10:37] LABS: BUN Creatinine Ratio 26.2 (10-20); Calcium 7.7 mg/dl (8.5-10.1); Est GFR (African American) 114.6 ml/min; Est GFR (Non-African American) 98.9 ml/min; Potassium 4.4 mmol/L (3.5-5.1)
[2022-03-01 11:03] LABS: Hematocrit (blood only) 34.7 % (34.1-44.9); Hemoglobin 11.4 g/dl (12.0-16.0); Mean Corpuscular Hemoglobin 28.6 pg (25.0-34.0); Mean Corpuscular Hgb Conc 32.9 g/dL (32.0-36.0); Mean Corpuscular Volume 87.2 fL (80.0-100.0); Mean Platelet Volume 9.9 fL (9.4-12.3); Nucleated RBC # (auto) 0.02 K/uL (0-0); Nucleated RBC % (auto) 0.2 %; Platelet Count 598 K/uL (130-400); RDW Coefficient of Variation 15.4 % (11.5-14.5); RDW Standard Deviation 49.1 fL (36.4-46.3); Red Blood Count 3.98 M/uL (3.93-5.22); White Blood Count 10.51 K/ul (4.8-10.8)
[2022-03-01] MEDS: REMDESIVIR 100 MG in SODIUM CHLORIDE 0.9% 230 ML IV SCH (12:32)
--- NOTE | 2022-03-01 15:56 | Hospitalist Progress Note ---
Date of Service March 01, 2022 Assessment & Plan (1) Acute respiratory failure with hypoxia: (2) Pulmonary embolism: (3) Pneumonia: (4) COVID-19: (5) Sepsis: (6) UTI (urinary tract infection): (7) Metabolic encephalopathy: Plan: Patient is a 77-year-old female with H/O dementia, hypothyroidism, hypertension, anxiety who presents from [facility] with lethargy and shortness of breath. Acute respiratory failure with hypoxia Acute pulmonary embolism Sepsis Multi focal pneumonia: COVID-19 infection, aspiration UTI-POA --CT chest noted several segmental and subsegmental PE in left lower lobe, dense consolidation in RLL and secretions in RLL bronchi Blood cultures negative to date Urine culture growing E. coli Elevated procalcitonin Appreciate pulmonology input Weaned off oxygen Resume dexamethasone Will complete remdesivir course tomorrow Continue doxycycline, Zosyn Continue IV Lovenox-----transition to Eliquis tomorrow if taking PO meds Aspiration precautions Concern for possible aspiration Speech therapist evaluation noted yesterday. Patient said 'no' to fluids during assessment. APPLIED PSYCHOLOGY TEACHER recommends sips/chips if patient wants Refused some medications yesterday. Agreed to take her meds and apple sauce this morning APPLIED PSYCHOLOGY TEACHER will reevaluate today Acute metabolic encephalopathy In setting of baseline dementia Multifactorial CT head:There is no hemorrhage, mass effect, or evidence of acute territorial ischemia by CT criteria. Reorient frequently to minimize delirium (8) Acute hypernatremia: Plan: Likely due to poor oral intake Sodium 156>>148>.138 Continue IVF D5W Nephrology on board Encourage fluid intake po Hypokalemia Replete and monitor (9) Hypertension: Plan: Stable Monitor (10) Dementia: Plan: Continue home meds Use IM prn zyprexa when patient declines po Reorient as needed (11) Hypothyroidism: Plan: Resumed levothyroxine DVT Px: Lovenox SQ Code Status Full Code Admission and Anticipated Discharge Date Admission Date: February 26, 2022 Subjective Patient is seen and examined at bedside Took all her medications this morning apparently No distress on exam Saturating well on room air Poor historian secondary to dementia Review of Systems Review of Systems: Unobtainable due to cognitive status Physical Exam Physical Exam: Physical Exam: Vitals signs as noted above General Appearance:Moderately built and nourished, no apparent distress Head: normocephalic, Atraumatic Eyes: normal inspection, EOMI Neck: supple, Trachea midline Respiratory/Chest: Decreased breath sounds, CTA, No accessory muscle use Cardiovascular: S1, S2, No murmur Abdomen/GI:Soft, Non tender, Bowel sounds present Extremities/Musculoskeletal:normal inspection, no edema Neurologic/Psych:AA, grossly no focal neurological deficits, +Dementia Skin: normal color, warm Results & Data Results & Data ([facility]) Vital Signs (Past 12 Hours) Vital Signs Temp Pulse Pulse Resp BP Pulse Ox O2 Del Method 03/01/22 15:31 36.5 C 78 18 140/79 97 Room Air 03/01/22 10:00 Room Air 03/01/22 12:13 36.9 C 85 18 137/80 97 Room Air 03/01/22 07:00 03/01/22 03:56 59 L 03/01/22 03:49 36.8 C 75 16 154/90 H 97 Room Air O2 Del Method 03/01/22 15:31 03/01/22 10:00 03/01/22 12:13 03/01/22 07:00 Room Air 03/01/22 03:56 03/01/22 03:49 Laboratory Results Short CBC 03/01/22 03/01/22 Range/Units 09:17 10:31 WBC Cancelled 10.51 Hgb Cancelled 11.4 L Hct Cancelled 34.7 Plt Count Cancelled 598 H BMP 03/01/22 09:17 Sodium 138 Potassium 4.4 D Chloride 111 H Carbon Dioxide 18 L BUN 11 Creatinine 0.42 L Glucose 128 H Calcium 7.7 L Liver Function 03/01/22 Range/Units 09:17 AST 47 H (13-39) U/L ALT 53 H (7-52) U/L (1) Dementia Dementia behavioral or psychological symptom: unspecified whether behavioral, psychotic, or mood disturbance or anxiety Dementia severity: unspecified severity Dementia type: unspecified type Qualified Code(s): F03.90 - Unspecified dementia, unspecified severity, without behavioral disturbance, psychotic disturbance, mood disturbance, and anxiety
[2022-03-01] MEDS: traZODone HCL 50 MG TAB PO SCH (21:36)
[2022-03-02] MEDS: DOXYCYCLINE HYCLATE 100 MG in DEXTROSE 5% 100 ML IV SCH ×2 (01:13→14:43)
[2022-03-02] MEDS: D5W 1/2NSS + KCL 40 mEq IV SCH ×2 (04:25→17:13)
[2022-03-02] MEDS: PIPERACILLIN/TAZOBACTAM 3.375 GM in DEXTROSE 5% 100 ML IV SCH ×3 (04:26→19:55)
[2022-03-02] MEDS: LEVOTHYROXINE SODIUM 88 MCG TABLET PO SCH (06:10)
[2022-03-02] MEDS: ENOXAPARIN 80 MG/0.8 ML SYR SQ SCH (06:10)
[2022-03-02] MEDS: ZINC SULFATE 220 MG CAPSULE PO SCH (08:17)
[2022-03-02] MEDS: POTASSIUM CHLORIDE CRTAB 20 MEQ TABCR PO SCH (08:17)
[2022-03-02] MEDS: ASCORBIC ACID 500 MG TAB PO SCH (08:17)
[2022-03-02] MEDS: CHOLECALCIFEROL 5,000 UNITS 125 MCG TAB PO SCH (08:17)
[2022-03-02] MEDS: OLANZapine 5 MG TABLET PO SCH ×2 (08:18→19:55)
[2022-03-02] MEDS: DIVALPROEX SODIUM SPRINKLE/DEL-REL 125 MG CAP PO SCH ×2 (08:18→19:55)
[2022-03-02] MEDS: DONEPEZIL HCL 5 MG TAB PO SCH (08:18)
[2022-03-02] MEDS: amLODIPine BESYLATE 5 MG TAB PO SCH (08:18)
[2022-03-02 10:12] LABS: BUN Creatinine Ratio 20.5 (10-20); Calcium 8.2 mg/dl (8.5-10.1); Creatinine Clr Calc Pharmacy 106.9 ml/min; Est GFR (African American) 112.8 ml/min; Est GFR (Non-African American) 97.4 ml/min; Potassium 4.6 mmol/L (3.5-5.1)
[2022-03-02] MEDS: REMDESIVIR 100 MG in SODIUM CHLORIDE 0.9% 230 ML IV SCH (11:27)
--- NOTE | 2022-03-02 17:07 | Hospitalist Progress Note ---
Date of Service March 02, 2022 Assessment & Plan (1) Acute respiratory failure with hypoxia: (2) Pulmonary embolism: (3) Pneumonia: (4) COVID-19: (5) Sepsis: (6) UTI (urinary tract infection): (7) Metabolic encephalopathy: Plan: Patient is a 77-year-old female with H/O dementia, hypothyroidism, hypertension, anxiety who presents from [facility] with lethargy and shortness of breath. Acute respiratory failure with hypoxia Acute pulmonary embolism Sepsis Multi focal pneumonia: COVID-19 infection, aspiration UTI-POA --CT chest noted several segmental and subsegmental PE in left lower lobe, dense consolidation in RLL and secretions in RLL bronchi Blood cultures negative to date Urine culture growing E. coli Elevated procalcitonin Appreciate pulmonology input Weaned off oxygen Received dexamethasone Will complete remdesivir and Zosyn course today Continue IV Lovenox-----transition to Eliquis today Aspiration precautions Concern for possible aspiration Speech therapist evaluation noted yesterday. Patient said 'no' to fluids during assessment. WIRER MAINTENANCE recommends sips/chips if patient wants Refused some medications yesterday. Agreed to take her meds and apple sauce this morning WIRER MAINTENANCE following Acute metabolic encephalopathy In setting of baseline dementia Multifactorial CT head:There is no hemorrhage, mass effect, or evidence of acute territorial ischemia by CT criteria. Reorient frequently to minimize delirium (8) Acute hypernatremia: Plan: Likely due to poor oral intake Sodium 156>>148>139 Continue IVF D5W Nephrology on board Encourage fluid intake po Hypokalemia Replete and monitor (9) Hypertension: Plan: Stable Monitor (10) Dementia: Plan: Continue home meds Use IM prn zyprexa when patient declines po Reorient as needed (11) Hypothyroidism: Plan: Continue levothyroxine DVT Px: Lovenox SQ Code Status Full Code Admission and Anticipated Discharge Date Admission Date: February 26, 2022 Subjective Patient is seen and examined at bedside Poor historian secondary to dementia Denies any chest pain, shortness of breath Saturating well on room air Will complete IV remdesivir course today Review of Systems Review of Systems: Unobtainable due to cognitive status Physical Exam Physical Exam: Physical Exam: Vitals signs as noted above General Appearance:Moderately built and nourished, no apparent distress Head: normocephalic, Atraumatic Eyes: normal inspection, EOMI Neck: supple, Trachea midline Respiratory/Chest: Decreased breath sounds, CTA, No accessory muscle use Cardiovascular: S1, S2, No murmur Abdomen/GI:Soft, Non tender, Bowel sounds present Extremities/Musculoskeletal:normal inspection, no edema Neurologic/Psych:AA, grossly no focal neurological deficits, +Dementia Skin: normal color, warm Results & Data Results & Data ([facility]) Vital Signs (Past 12 Hours) Vital Signs Temp Pulse Resp BP Pulse Ox O2 Del Method 03/02/22 06:04 36.8 C 67 14 124/76 98 Room Air Laboratory Results [facility] 03/02/22 09:16 Sodium 139 Potassium 4.6 Chloride 109 H Carbon Dioxide 24 BUN 9 Creatinine 0.44 L Glucose 117 H Calcium 8.2 L Liver Function 03/02/22 Range/Units 09:16 AST 38 (13-39) U/L ALT 53 H (7-52) U/L (1) Dementia Dementia behavioral or psychological symptom: unspecified whether behavioral, psychotic, or mood disturbance or anxiety Dementia severity: unspecified severity Dementia type: unspecified type Qualified Code(s): F03.90 - Unspecified dementia, unspecified severity, without behavioral disturbance, psychotic disturbance, mood disturbance, and anxiety
[2022-03-02] MEDS ORDERED: ACETAMINOPHEN 500 MG TAB PO PRN (17:32)
[2022-03-02] MEDS: APIXABAN 5 MG TABLET PO SCH (19:54)
[2022-03-02] MEDS: traZODone HCL 50 MG TAB PO SCH (20:17)
[2022-03-03] MEDS: D5W 1/2NSS + KCL 40 mEq IV SCH ×2 (00:33→08:21)
[2022-03-03] MEDS: DOXYCYCLINE HYCLATE 100 MG in DEXTROSE 5% 100 ML IV SCH (00:33)
[2022-03-03] MEDS: LEVOTHYROXINE SODIUM 88 MCG TABLET PO SCH (04:58)
[2022-03-03] MEDS: PIPERACILLIN/TAZOBACTAM 3.375 GM in DEXTROSE 5% 100 ML IV SCH (04:58)
[2022-03-03 07:23] LABS: Hematocrit (blood only) 34.4 % (34.1-44.9); Hemoglobin 11.3 g/dl (12.0-16.0); Mean Corpuscular Hemoglobin 28.7 pg (25.0-34.0); Mean Corpuscular Hgb Conc 32.8 g/dL (32.0-36.0); Mean Corpuscular Volume 87.3 fL (80.0-100.0); Mean Platelet Volume 9.6 fL (9.4-12.3); Platelet Count 604 K/uL (130-400); RDW Coefficient of Variation 15.6 % (11.5-14.5); RDW Standard Deviation 49.1 fL (36.4-46.3); Red Blood Count 3.94 M/uL (3.93-5.22)
[2022-03-03 08:03] LABS: BUN Creatinine Ratio 18.4 (10-20); Calcium 7.9 mg/dl (8.5-10.1); Est GFR (African American) 108.9 ml/min; Potassium 4.7 mmol/L (3.5-5.1)
[2022-03-03] MEDS: OLANZapine 5 MG TABLET PO SCH (08:23)
[2022-03-03] MEDS: ZINC SULFATE 220 MG CAPSULE PO SCH (08:23)
[2022-03-03] MEDS: POTASSIUM CHLORIDE CRTAB 20 MEQ TABCR PO SCH (08:23)
[2022-03-03] MEDS: DONEPEZIL HCL 5 MG TAB PO SCH (08:23)
[2022-03-03] MEDS: CHOLECALCIFEROL 5,000 UNITS 125 MCG TAB PO SCH (08:24)
[2022-03-03] MEDS: APIXABAN 5 MG TABLET PO SCH (08:24)
[2022-03-03] MEDS: DIVALPROEX SODIUM SPRINKLE/DEL-REL 125 MG CAP PO SCH (08:24)
[2022-03-03] MEDS: ASCORBIC ACID 500 MG TAB PO SCH (08:25)
[2022-03-03] MEDS: amLODIPine BESYLATE 5 MG TAB PO SCH (08:25)
[2022-03-03] MEDS ORDERED: AMOXICILLIN/CLAVULANATE 875 MG TAB PO SCH (09:00)
[2022-03-03] MEDS: OLANZapine 10 MG/2.1 ML SDV IM PRN (09:32)
--- NOTE | 2022-03-03 12:02 | Hospitalist Progress Note ---
Date of Service March 03, 2022 Assessment & Plan (1) Acute respiratory failure with hypoxia: (2) Pulmonary embolism: (3) Pneumonia: (4) COVID-19: (5) Sepsis: (6) UTI (urinary tract infection): (7) Metabolic encephalopathy: Plan: Patient is a 77-year-old female with H/O dementia, hypothyroidism, hypertension, anxiety who presents from [facility] with lethargy and shortness of breath. Acute respiratory failure with hypoxia Acute pulmonary embolism Sepsis Multi focal pneumonia: COVID-19 infection, aspiration UTI-POA --CT chest noted several segmental and subsegmental PE in left lower lobe, dense consolidation in RLL and secretions in RLL bronchi Blood cultures negative to date Urine culture growing E. coli Elevated procalcitonin Appreciate pulmonology input Weaned off oxygen Received dexamethasone Completed Remdesivir and Zosyn course Continue IV Lovenox-----transitioned to Eliquis Aspiration precautions Plan to discharge to SNF today Concern for possible aspiration Speech therapist evaluation noted yesterday. Patient said 'no' to fluids during assessment. BUILDING CODE ADMINISTRATOR recommends sips/chips if patient wants Refused some medications yesterday. Agreed to take her meds and apple sauce this morning BUILDING CODE ADMINISTRATOR following Acute metabolic encephalopathy In setting of baseline dementia Multifactorial CT head:There is no hemorrhage, mass effect, or evidence of acute territorial ischemia by CT criteria. Reorient frequently to minimize delirium (8) Acute hypernatremia: Plan: Likely due to poor oral intake Sodium 156>>148>139> 138 Continue IVF D5W Nephrology on board Encourage fluid intake po Hypokalemia Replete and monitor (9) Hypertension: Plan: Stable Monitor (10) Dementia: Plan: Continue home meds Use IM prn zyprexa when patient declines po Reorient as needed (11) Hypothyroidism: Plan: Continue levothyroxine DVT Px: Lovenox SQ Code Status Full Code Admission and Anticipated Discharge Date Admission Date: February 26, 2022 Subjective Patient is seen and examined at bedside Poor historian secondary to dementia No distress during my encounter Afebrile Saturating well on room air Completed Remdesivir, Zosyn course Review of Systems Review of Systems: Unobtainable due to cognitive status Physical Exam Physical Exam: Physical Exam: Vitals signs as noted above General Appearance:Moderately built and nourished, no apparent distress Head: normocephalic, Atraumatic Eyes: normal inspection, EOMI Neck: supple, Trachea midline Respiratory/Chest: Decreased breath sounds, CTA, No accessory muscle use Cardiovascular: S1, S2, No murmur Abdomen/GI:Soft, Non tender, Bowel sounds present Extremities/Musculoskeletal:normal inspection, no edema Neurologic/Psych:AA, grossly no focal neurological deficits, +Dementia Skin: normal color, warm Results & Data Results & Data ([facility]) Vital Signs (Past 12 Hours) Vital Signs Temp Pulse Resp BP Pulse Ox O2 Del Method 03/03/22 07:40 Room Air 03/03/22 07:49 36.6 C 72 16 106/70 94 Room Air Laboratory Results Short CBC 03/03/22 Range/Units 06:49 WBC 11.00 H (4.8-10.8) K/ul Hgb 11.3 L (12.0-16.0) g/dl Hct 34.4 (34.1-44.9) % Plt Count 604 H (130-400) K/uL BMP 03/03/22 06:49 Sodium 138 Potassium 4.7 Chloride 108 H Carbon Dioxide 24 BUN 9 Creatinine 0.49 L Glucose 127 H Calcium 7.9 L (1) Dementia Dementia behavioral or psychological symptom: unspecified whether behavioral, psychotic, or mood disturbance or anxiety Dementia severity: unspecified severity Dementia type: unspecified type Qualified Code(s): F03.90 - Unspecified dementia, unspecified severity, without behavioral disturbance, psychotic disturbance, mood disturbance, and anxiety
--- NOTE | 2022-03-03 13:31 | Discharge Summary ---
Date of Service March 03, 2022 Admission HPI Per Admitting Provider CHIEF COMPLAINT: Lethargy. HISTORY OF PRESENT ILLNESS: This is a 77-year-old female with past medical history significant for hypothyroidism, dementia, hyperlipidemia, hypertension, history of generalized anxiety disorder, who presents from [facility] with lethargy and shortness of breath. The patient was in the hospital, admitted on 01/16/2022 with agitation. It looks like she was also admitted in december for agitation due to dementia. Looks like on January admission, the patient's son had dropped her at the ED and did not stay with her and it looks like son did not come to the hospital and she was discharged to [facility] on 02/06/2022. She was seen by psychiatry during last admission and was discharged on Zyprexa. Currently, the patient is lethargic, could not tell her name, mumbling some word s when asking questions, and she is on non-rebreather mask, saturating at 94%. Seems for EMS, she was saturating in 70s. Could not get any history from the patient. As per care home, when she came in, she was to walk with a walker, but is sometimes not using it. She has severe dementia and she does not know where she is as per care home, but last three days she is not eating and drinking, she is lethargic. Yesterday, she had fever of 101, but after that she was okay, but she has some cough, and it is not getting better, that is the reason she was sent in here. As per care home, there is no nausea, no vomiting, and no diarrhea. Could not get much history currently. Admission Exam Per Admitting Provider PHYSICAL EXAMINATION: VITAL SIGNS: Temperature 36.4, pulse 97, respiratory rate 18, blood pressure 140/77, and oxygen 94% on 10 liters nonrebreather. HEENT: The patient is closing the eyes, could not examine the eyes. Atraumatic. No facial droop seen. NECK: No neck masses seen. CARDIOVASCULAR: S1 and S2 heard. Regular rate and rhythm. No murmur, no gallop. RESPIRATORY SYSTEM: No accessory muscle use. No obvious wheezing or crackles. ABDOMEN: Soft, bowel sounds present, no distention. CENTRAL NERVOUS SYSTEM: Lethargic, not answering any questions, some mumbling words. EXTREMITIES: No edema, no erythema. Principal Diagnosis Acute respiratory failure with hypoxia Acute pulmonary embolism Sepsis Multi focal pneumonia due to COVID-19 infection, aspiration Urinary tract infection Acute hypernatremia Hypokalemia Discharge Data Allergies Allergy/AdvReac Type Severity Reaction Status Date / Time No Known Allergies Allergy Verified 02/26/22 02:38 Consultations 02/26/22 02:45 ED Decision to Admit Stat 02/26/22 08:24 Consult Pulmonology Routine 02/27/22 09:00 Consult Nephrology Routine Procedures Performed Laboratory Results WBC 11.00 K/ul (4.8-10.8) H 03/03/22 06:49 RBC 3.94 M/uL (3.93-5.22) 03/03/22 06:49 Hgb 11.3 g/dl (12.0-16.0) L 03/03/22 06:49 POC Hgb 14.3 g/dl (12.0-16.0) 02/26/22 01:37 Hct 34.4 % (34.1-44.9) 03/03/22 06:49 POC Hct 42 % (37-47) 02/26/22 01:37 MCV 87.3 fL (80.0-100.0) 03/03/22 06:49 MCH 28.7 pg (25.0-34.0) 03/03/22 06:49 MCHC 32.8 g/dL (32.0-36.0) 03/03/22 06:49 RDW Std Deviation 49.1 fL (36.4-46.3) H 03/03/22 06:49 RDW Coeff of Deidre 15.6 % (11.5-14.5) H 03/03/22 06:49 Plt Count 604 K/uL (130-400) H 03/03/22 06:49 MPV 9.6 fL (9.4-12.3) 03/03/22 06:49 Immature Gran % (Auto) 0.9 % 02/26/22 08:15 Neut % (Auto) 85.4 % 02/26/22 08:15 Lymph % (Auto) 7.0 % 02/26/22 08:15 [place] % (Auto) 6.6 % 02/26/22 08:15 Eos % (Auto) 0.0 % 02/26/22 08:15 Baso % (Auto) 0.1 % 02/26/22 08:15 Neut # (Auto) 23.35 K/uL (1.4-6.5) H 02/26/22 08:15 Lymph # (Auto) 1.92 K/uL (1.2-3.4) 02/26/22 08:15 [place] # (Auto) 1.80 K/uL (0.24-0.82) H 02/26/22 08:15 Eos # (Auto) 0.00 K/uL (0-0.50) 02/26/22 08:15 Baso # (Auto) 0.04 K/uL (0-0.2) 02/26/22 08:15 Immature Gran # (Auto) 0.24 K/uL (0.00-0.02) H 02/26/22 08:15 Absolute Nucleated RBC 0.02 K/uL (0-0) H 03/01/22 10:31 Nucleated RBC % (auto) 0.2 % 03/01/22 10:31 Platelet Estimate Cancelled 03/01/22 09:17 PT 11.3 Seconds (9.0-12.0) 02/26/22 08:53 INR 1.1 (0.9-1.1) 02/26/22 08:53 APTT 28.8 Seconds (21.0-31.0) 02/28/22 07:29 PTT Ratio 1.0 02/28/22 07:29 VBG pH 7.45 (7.36-7.41) H 02/26/22 02:13 VBG pCO2 39 mmHg (38-50) 02/26/22 02:13 VBG pO2 39 mmHg 02/26/22 02:13 VBG HCO3 27 mmol/L 02/26/22 02:13 VBG O2 Saturation 63.0 % 02/26/22 02:13 VBG Base Excess 3.0 mEq/L 02/26/22 02:13 POC Sodium 155 mmol/L (135-144) H 02/26/22 01:37 Sodium 138 mmol/L (136-145) 03/03/22 06:49 POC Potassium 4.2 mmol/L (3.3-5.0) 02/26/22 01:37 Potassium 4.7 mmol/L (3.5-5.1) 03/03/22 06:49 POC Chloride 117 mmol/L (101-112) H 02/26/22 01:37 Chloride 108 mmol/L (98-107) H 03/03/22 06:49 Carbon Dioxide 24 mmol/L (21-32) 03/03/22 06:49 POC Total CO2 27 mmol/L (24-31) 02/26/22 01:37 Anion Gap 6 (3-11) 03/03/22 06:49 POC Anion Gap 15.0 mmol/L (16-25) L 02/26/22 01:37 POC BUN 40 mg/dl (7-18) H 02/26/22 01:37 BUN 9 mg/dl (6-23) 03/03/22 06:49 Creatinine 0.49 mg/dl (0.6-1.2) L 03/03/22 06:49 POC Creatinine 1.1 mg/dl (0.6-1.3) 02/26/22 01:37 Est Cr Clr Drug Dosing 96.0 ml/min 03/03/22 06:49 Est GFR ( Amer) 108.9 ml/min 03/03/22 06:49 Est GFR (Non-Af Amer) 94.0 ml/min 03/03/22 06:49 BUN/Creatinine Ratio 18.4 (10-20) 03/03/22 06:49 Glucose 127 mg/dl (70-99(Fasting)) H 03/03/22 06:49 POC Glucose (other) 177 mg/dl (70-99) H 02/26/22 01:37 Lactate 1.5 mmol/L (0.4-2.0) 02/27/22 09:54 Calcium 7.9 mg/dl (8.5-10.1) L 03/03/22 06:49 POC Ioniz Calcium Genie 1.06 mmol/l (1.12-1.32) L 02/26/22 01:37 Magnesium 2.2 mg/dl (1.7-2.4) 02/28/22 07:29 Total Bilirubin 0.3 mg/dl (0.2-1.0) 02/27/22 06:37 Direct Bilirubin 0.0 mg/dl (0-0.2) 02/27/22 06:37 AST 38 U/L (13-39) 03/02/22 09:16 ALT 53 U/L (7-52) H 03/02/22 09:16 Alkaline Phosphatase 99 U/L (34-104) 02/27/22 06:37 Troponin I High Sens 17.1 pg/ml (0-14) H 02/26/22 08:53 B-Natriuretic Peptide 44 pg/ml (0-100) 02/26/22 08:53 Total Protein 6.5 gm/dl (6.0-8.3) 02/27/22 06:37 Albumin 2.9 gm/dl (3.4-5.0) L 02/27/22 06:37 Procalcitonin 0.27 ng/ml (0-0.5) 03/02/22 09:16 Urine Color Yellow 02/26/22 16:00 Urine Appearance Cloudy (Clear) A 02/26/22 16:00 Urine pH 5.0 (4.5-7.5) 02/26/22 16:00 Ur Specific [place] 1.038 (1.000-1.030) H 02/26/22 16:00 Urine Protein 1+ (Negative) H 02/26/22 16:00 Urine Glucose (UA) Negative (Negative) 02/26/22 16:00 Urine Ketones Negative (Negative) 02/26/22 16:00 Urine Blood 1+ (Negative) H 02/26/22 16:00 Urine Nitrite Positive (Negative) A 02/26/22 16:00 Urine Bilirubin Negative (Negative) 02/26/22 16:00 Urine Urobilinogen Negative (Negative) 02/26/22 16:00 Ur Leukocyte Esterase 3+ (Negative) H 02/26/22 16:00 Urine WBC (Auto) >30 /hpf (0-5) H 02/26/22 16:00 Urine RBC (Auto) 0-4 /hpf (0-4) 02/26/22 16:00 U Hyaline Cast (Auto) 0 /lpf (0-5) 02/26/22 16:00 U Epithel Cells (Auto) 10-20 /lpf (0-5) H 02/26/22 16:00 Urine Bacteria (Auto) 1+ (Negative) H 02/26/22 16:00 Urine Yeast Not Reportable 02/26/22 16:00 Nasal Screen MRSA (PCR) Negative (Negative) 02/26/22 16:00 SARS-CoV-2 (PCR) POSITIVE (Negative) A* 02/26/22 01:23 Influenza Type A (PCR) Negative (Neg) 02/26/22 01:23 Influenza Type B (PCR) Negative (Neg) 02/26/22 01:23 RSV (RT-PCR) Negative (Neg) 02/26/22 01:23 Impressions Chest X-Ray 02/26/22 01:10 XR chest 1V portable CLINICAL HISTORY: Sepsis. COMPARISON STUDY: Chest radiograph January 16, 2022. FINDINGS: Lung volumes are mildly diminished. There is no pneumothorax or pleural effusion. There has been interval development of right lower lung consolidation since prior exam. There is also mild left basilar opacity. There is no evidence for pulmonary edema. Cardiomediastinal silhouette is stable. IMPRESSION: 1. Interval development of right basilar opacity consistent with pneumonia or aspiration pneumonitis. 2. Left basilar opacity which could reflect atelectasis or an infectious process. ACT 112: Negative or not required by law. Electronically signed by: Masoud Duran M.D. 02/26/2022 7:02 AM Chest CTA 02/26/22 01:15 CT ANGIOGRAPHY OF THE CHEST, PULMONARY EMBOLUS PROTOCOL CLINICAL HISTORY: Shortness of breath. Evaluate for pulmonary embolus. COMPARISON STUDY: Chest radiographs January 16, 2022 and February 26, 2022. TECHNIQUE: Following IV administration of 114 mL of Optiray, helical axial images of the chest were obtained utilizing the pulmonary embolus protocol. Maximal intensity projections and sagittal and coronal reformats were viewed on an independent 3D workstation. IV contrast was administered without complication. Automated exposure control was utilized for the study. A dose lowering technique was utilized adhering to the principles of ALARA. CT DOSE: 474.43 mGy.cm FINDINGS: There are several small segmental and subsegmental pulmonary emboli within the left lower lobe. No central pulmonary emboli are identified. There is no pericardial effusion. Moderate coronary artery calcification is noted. Lungs are suboptimally assessed due to respiratory motion. There is no pneumothorax or pleural effusion. There is dense consolidation throughout the majority of the right lower lobe. Extensive associated secretions within the right lower lobe bronchi are noted. There are also moderate airspace opacities within the right middle lobe and scattered airspace opacities within the lingula and left lower lobe. No central obstructing mass is identified. These findings are new since chest radiograph of January 16, 2022. Hypoechoic dense bilateral adrenal nodules measure up to 2.5 cm. These favor adenomas. IMPRESSION: 1. Several small segmental and subsegmental pulmonary emboli within the left lower lobe. This finding will be called/faxed to ordering provider. 2. Dense consolidation throughout the majority of the right lower lobe with extensive secretions within right lower lobe bronchi. This favors aspiration pneumonitis or pneumonia. Scattered additional airspace opacities throughout the lungs. ACT 112: Negative or not required by law. Electronically signed by: Masoud Duran M.D. 02/26/2022 7:01 AM Ordered Studies 02/26/22 01:15 CT angio chest PE protocol Urgent Hospital Course (1) Acute respiratory failure with hypoxia: (2) Pulmonary embolism: (3) Pneumonia: (4) COVID-19: (5) Sepsis: (6) UTI (urinary tract infection): (7) Metabolic encephalopathy: Patient is a 77-year-old female with H/O dementia, hypothyroidism, hypertension, anxiety who presents from [facility] with lethargy and shortness of breath. Acute respiratory failure with hypoxia Acute pulmonary embolism Sepsis Multi focal pneumonia: COVID-19 infection, aspiration UTI-POA --CT chest noted several segmental and subsegmental PE in left lower lobe, dense consolidation in RLL and secretions in RLL bronchi Blood cultures negative to date Urine culture growing E. coli Elevated procalcitonin Appreciate pulmonology input Weaned off oxygen Received dexamethasone Completed Remdesivir and Zosyn course Continue IV Lovenox-----transitioned to Eliquis Aspiration precautions Plan to discharge to SNF today Concern for possible aspiration Speech therapist evaluation noted yesterday. Patient said 'no' to fluids during assessment. LOGISTICS PROJECT MANAGER recommends sips/chips if patient wants Refused some medications yesterday. Agreed to take her meds and apple sauce this morning LOGISTICS PROJECT MANAGER following Acute metabolic encephalopathy In setting of baseline dementia Multifactorial CT head:There is no hemorrhage, mass effect, or evidence of acute territorial ischemia by CT criteria. Reorient frequently to minimize delirium (8) Acute hypernatremia: Likely due to poor oral intake Sodium 156>>148>139> 138 Continue IVF D5W Nephrology on board Encourage fluid intake po Hypokalemia Replete and monitor (9) Hypertension: Stable Monitor (10) Dementia: Continue home meds Use IM prn zyprexa when patient declines po Reorient as needed (11) Hypothyroidism: Continue levothyroxine DVT Px: Lovenox SQ Code Status Full Code Total Time Total Time Spent Total Time Spent (In Minutes): 49 minutes Discharge Plan Discharge Items Patient Disposition: Transfer [facility] Fac Reason For Visit: BREATHING DIFFICULTY/CHANGE IN MENTAL STATUS Discharge Diagnosis: Acute respiratory failure with hypoxia Acute pulmonary embolism Sepsis Multi focal pneumonia due to COVID-19 infection, aspiration Urinary tract infection Acute hypernatremia Hypokalemia Activity: Resume your previous activity Exercise/Sports: Gradually increase as tolerated Non-emergency contact: Primary Care Provider Call non-emergency contact if: you have any medication questions, your symptoms worsen, your pain is concerning for you and you have a fever Follow-up/Referrals: Ok Gruber [Primary Care Provider] - Dietitian Info: Minced and Moist Diet: Heart Healthy Addtl Attending Provider Instructions: Follow-up with your primary care physician in 1 week. --- Continue taking Eliquis course as prescribed for pulmonary embolism. Take Eliquis 10 mg twice a day until 03/09/2022. Then start taking Eliquis 5 mg twice a day from 03/10/2022. --- Complete antibiotic course Augmentin, doxycycline for 2 more days as prescribed. --- Continue aspiration precautions as recommended by speech therapy at all times. Seek immediate medical attention if your symptoms reoccur or worsen Please take all medications as instructed on discharge list below. Please call if you have any questions or problems. You can reach a [facility] hospitalist on duty at [facility] 24 hours a day by calling [phone] Pending Studies at Discharge: No Stand-Alone Forms: My New [facility] Skilled Items Patient informed of condition?: Yes DNR: No Discharge Level of Care: Skilled Communicable Disease: Yes Discharge Prognosis: Stable Lines: None Urinary Catheter: No Medications and DC Order Prescriptions: New doxycycline hyclate 100 mg Capsule 100 mg PO BID Qty: 4 0RF Eliquis 5 mg Tablet 5 mg PO UD Qty: 60 2RF Rx Instructions: Take Eliquis 10 mg twice a day until 03/09/22 and then take 5mg twice a day from 03/10/2022. amoxicillin-pot clavulanate 875-125 mg Tablet 1 tab PO BID Qty: 4 0RF Continued acetaminophen [Tylenol] 325 mg Tablet 650 mg PO Q6 PRN (Reason: fever/pain) donepezil [Aricept] 5 mg Tablet 5 mg PO DAILY trazodone 50 mg Tablet 25 mg PO HS olanzapine 5 mg Tablet 5 mg PO Q12 amlodipine [Norvasc] 5 mg Tablet 5 mg PO DAILY levothyroxine 88 mcg tablet 88 mcg PO QAM ascorbic acid (vitamin C) [Vitamin C] 500 mg Tablet 500 mg PO DAILY Rx Instructions: give for 14 days, End 03/03/22 zinc 50 mg Tablet 50 mg PO DAILY Rx Instructions: for 14 days, End 03/03/22 divalproex [Depakote Sprinkles] 125 mg Capsule, Delayed Rel Sprinkle 125 mg PO Q12 cholecalciferol (vitamin D3) [Vitamin D3] 125 mcg (5,000 unit) Tablet 125 mcg PO DAILY Rx Instructions: for 14 days Discharge Orders: Discharge Order (Routine); Ordered 03/03/22 Ordered By: Kenneth Rodney Admission Data Admit Date/Time: 02/26/22 04:15 Attending Provider: Kenneth Rodney Admit Provider: Brent Iglesias Primary Care Provider: Ok Gruber Other Providers: Yasmani, ; Brent Iglesias ; Leti Montano
[2022-03-03] MEDS ORDERED: DOXYCYCLINE HYCLATE 100 MG CAP PO SCH (21:00)
[2022-03-09] MEDS ORDERED: APIXABAN 5 MG TABLET PO SCH (21:00)
--- NOTE | 2022-03-31 12:30 | Coding Query ---
CODING QUERY To promote full compliance with coding requirements relating to patient care, provider participation is requested in all cases of environmental health and safety manager uncertainty. Please assist us with the question(s) below: Coding Question(s): Please clarify if the sepsis is linked to the covid or pneumonia. Physician's Response(s): Sepsis due to Multi focal pneumonia due to COVID-19 infection, aspiration and UTI Thank you Debbie Monroy Principal Diagnosis: "that condition established after study, to be chiefly responsible for occasioning the admission of the patient to the hospital for care." Co-Existing Principal Diagnosis: "when two or more diagnoses equally meet the criteria for principal diagnosis as determined by the circumstances of admission, diagnostic work up, and/or therapy provided, and the Alphabetic Index, Tabular List, or another coding guideline does not provide sequencing direction, any one of the diagnoses may be sequenced first." "When the physician has documented what appears to be a current diagnosis in the body of the record, but has not included the diagnosis in the final diagnostic statement, the physician should be asked whether the diagnosis should be added." (Source [facility]oding [facility] 2 QTR90. p3-4) MAURICIO
== END 2022-03-03 15:48 | DRG 871 ==
LOC: ED 01:04 → EDINP 04:15 → SUATTDRO 04:15 → 2S 07:41 → 3E 03-01 18:18